=== PATIENT | female | born 1965 | race Caucasian/White ===

== ENCOUNTER → 2017-02-03 | Outpatient (CLI) | payer BC ==
[2017-02-03 12:02] LABS: Basophils # (A) 0.1 k/uL (0-0.2); Basophils % (A) 1 %; CH 31.3; CHCM 35.7; Eosinophils # (A) 0.1 k/uL (0-0.7); Eosinophils % (A) 2 %; HCT 40.6 % (34.0-46.0); HDW 2.84; HGB 14.3 gm/dL (11.4-16.0); Luc # (Auto) 0.11; Luc % (Auto) 2; Lymphocytes % (A) 31 %; MCH 31.2 pg (25.0-35.0); MCHC 35.3 g/dL (31.0-37.0); MCV 88.3 fL (80.0-100.0); Mean Platelet Volume 7.3; Monocytes # (A) 0.3 k/uL (0-1.0); Monocytes % (A) 5 %; Neutrophils % (A) 60 %; RDW 13.1 % (11.5-15.5); WBC 6.6 k/uL (3.8-10.6); WBC (Perox) 7.03
[2017-02-03 12:12] LABS: ALT 42 U/L (9-52); AST 23 U/L (14-36); Alkaline Phosphatase 51 U/L (38-126); Anion Gap 9 mmol/L; Blood Urea Nitrogen 14 mg/dL (7-17); Calcium 9.6 mg/dL (8.4-10.2); Carbon Dioxide 28 mmol/L (22-30); Chloride 103 mmol/L (98-107); Cholesterol 176 mg/dL (<200); Creatine Kinase 104 U/L (30-135); Glucose 101 mg/dL (74-99); HDL Cholesterol 67 mg/dL (40-60); Non-African American GFR(MDRD) >60 (>60 ml/min/1.73 sqM); Potassium 4.3 mmol/L (3.5-5.1); Sodium 140 mmol/L (137-145); Total Bilirubin 0.4 mg/dL (0.2-1.3); Total Protein 7.1 g/dL (6.3-8.2); Triglycerides 158 mg/dL (<150); Uric Acid 5.5 mg/dL (3.7-7.4)
[2017-02-03 13:31] LABS: Hemoglobin A1C 5.5 % (4.2-6.1)
[2017-02-03 18:47] LABS: Appearance,Urine Turbid (Clear); Bilirubin,Urine Negative (Negative); Glucose,Urine (UA) Negative (Negative); Ketones,Urine Negative (Negative); Leukocyte Esterase,Urine Trace (Negative); Mucus,Urine Few /hpf; Nitrite,Urine Negative (Negative); Particle Count 8343; Protein,Urine Trace (Negative); RBC,Urine 1 /hpf (0-5); Specific Gravity,Urine 1.022 (1.001-1.035); Squamous Epithelial Cell,Urine 18 /hpf (0-4); UA Billing (MACRO vs. MICRO) MICRO; Urobilinogen,Urine <2.0 mg/dL (<2.0); WBC,Urine 1 /hpf (0-5)
== END | disposition home or self-care (01) ==
LOC: LABWHC1 11:25
PROVIDERS: ATTEND Internal Medicine
DX: Z00.00 Encounter for general adult medical examination without abnormal findings (principal); E78.00 Pure hypercholesterolemia, unspecified; I10 Essential (primary) hypertension; G25.81 Restless legs syndrome; F32.89 Other specified depressive episodes
CPT/HCPCS: 36415; 80053; 80061; 81001; 82306; 82550; 83036; 84439; 84443; 84550; 85025

== ENCOUNTER → 2017-02-21 | Outpatient (CLI) | payer BC ==
--- NOTE | 2017-02-21 15:43 | BD ---
EXAMINATION TYPE: MG DEXA axial skeleton. DATE OF EXAM: 02/21/2017 COMPARISON: NONE CLINICAL HISTORY: Postmenopausal female Height: 5FT 1 1/2 IN Weight: 167 FRAX RISK QUESTIONS: Alcohol (3 or more units per day): NO Family History (Parent hip fracture): NO Glucocorticoids (More than 3mos): NO (Ex: prednisone, prednisolone, methylprednisolone, dexamethasone, and hydrocortisone). History of Fracture in Adulthood: NO Secondary Osteoporosis: 1. Type 1 Diabetes: NO 2. Hyperthyroidism: NO 3. Menopause before 45: YES 4. Malnutrition: NO 5. Chronic liver disease: NO Rheumatoid Arthritis: NO Current Tobacco Use: NO RISK FACTORS HISTORY OF: Surgery to Spine/Hip(right/left)/Wrist (right/left): LUMBAR FUSION When: 2011 Family History of Osteoporosis: YES Active: YES Postmenopausal woman: TOTAL HYST AGE 30 Take estrogen and/or progesterone medications: TOOK FROM 30 -43 How long: NONE NOW MEDICATIONS: Additional Medications: CITALIPRAM, BENICAR, CRESTOR, AMBIEN Additional History: EXAM MEASUREMENTS: Bone mineral density about the R hip (g/cm2): 1.046 Bone mineral density about the L hip (g/cm2): 1.114 . T Score values are as follows: -----R Neck: 0.1 -----L Neck: 0.5 -----R Total: 0.4 -----L Total: 0.7 Bone mineral density has: Decreased -1.5% since study of: 2014 IMPRESSION: No evidence for osteoporosis or osteopenia at this time. NOTE: T-SCORE=SD OF THE YOUNG ADULT MEAN.
--- NOTE | 2017-02-23 08:09 | MM ---
Reason for exam: screening (asymptomatic). Last mammogram was performed 1 year and 1 month ago. History: Patient is postmenopausal. Benign excisional biopsy of the left breast, April 30, 1999. Taking estrogen for 13 years beginning at age 30. Physical Findings: A clinical breast exam by your physician is recommended on an annual basis and results should be correlated with mammographic findings. MG Screening Mammo w CAD Bilateral CC and MLO view(s) were taken. Prior study comparison: January 22, 2016, bilateral MG screening mammo w CAD. September 04, 2014, bilateral MG screening mammo w CAD. April 15, 2013, bilateral digital screening mammo w/CAD. There are scattered fibroglandular densities. No significant changes when compared with prior studies. ASSESSMENT: Negative, BI-RAD 1 RECOMMENDATION: Routine screening mammogram of both breasts in 1 year.
== END | disposition home or self-care (01) ==
LOC: RADMAMWWP 14:35
PROVIDERS: ATTEND Internal Medicine
DX: Z12.31 Encounter for screening mammogram for malignant neoplasm of breast (principal); M81.0 Age-related osteoporosis without current pathological fracture
CPT/HCPCS: 77080; G0202

== ENCOUNTER → 2017-02-21 | Outpatient (CLI) | payer BC ==
--- NOTE | 2017-02-21 20:46 | CONS ---
DATE OF SERVICE: 02/21/2017 REASON FOR CONSULTATION: Insomnia. PRIMARY CARE PHYSICIAN: Dr. Jacobo This is a 52-year-old female patient who is experiencing on and off symptoms of insomnia. This patient has a history of chronic depression and anxiety. She has had some hard times recently, as the patient lost both of her parents in 2013 and 2014, and this has affected her depression, making her condition worse. Based on that, she had seen her primary care physician, who increased her citalopram up to 30 mg p.o. daily. For now, the patient is having some on and off difficulties in sleep initiation. It takes her somewhere between half an hour and up to 3 hours to fall asleep. She goes to bed around 11:00, and depending on what time she falls asleep, she wakes up somewhere between 9:30 a.m. and 11 a.m. She seems to be averaging less than 5 hours to sleep, according to her. No witnessed apneas. She has light, soft snoring. No grinding of the teeth. Occasional restlessness in the lower extremities. She was given Ambien by her primary care physician, initially at 5 mg, later on up to 10 mg, which was helping her; however, it was making her more drowsy during the day. Note that after initiating sleep, she does not wake up, and the difficulty with this patient is to initiate sleep. She gets anxious and she has racing thoughts, which prevent her from going to sleep. No nocturnal pain. No nocturnal shortness of breath. No nocturnal heartburn. No nightmares. No dreams. No sleepwalking of sleeptalking. No nocturnal palpitations. No panic attacks. She denies having any recent weight gain. She drinks tea in the morning and one glass of diet Coke in the afternoon. She has dinner between 5 and 7 p.m. No exercises or hot showers late at nighttime. No head trauma. No substance abuse. No history of alcoholism. No alcohol ingestion late at nighttime. Cumming Score is 2. Her quality of life is being affected. 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 Weight has been stable for now. No history of childhood insomnia. PAST MEDICAL HISTORY: 1. Depression. 2. Hypertension. 3. Hyperlipidemia. 4. Chronic insomnia. Surgical history includes: 1. x2. 2. Cholecystectomy. 3. Two back surgeries. 4. Breast biopsy. DRUG ALLERGIES: DILAUDID. Outpatient medication list includes: 1. Benicar 40/25 one tablet per day. 2. Citalopram 30 mg p.o. daily. 3. Crestor 5 mg p.o. daily. 4. Ambien 10 mg as needed. 5. Multivitamin 1 tablet a day. Family history is negative for insomnia or sleep breathing disorder. REVIEW OF SYSTEMS: Twelve-point review of systems was done. Positive findings were all mentioned above in the history of present illness. Her Cumming Score is 2. CURRENT VITAL SIGNS: BP is 128/71, pulse 98, respiration 14, temperature 98.5, saturation 96% on room air. Weight is 169. Height is 62-1/2 inches. Cumming Score is 2. BMI is 30.4. Neck size is 15 inches. GENERAL APPEARANCE: Calm, comfortable. HEENT: Short neck. Crowding of posterior pharynx. Micrognathia. No goiter or neck masses. LUNGS: Clear to auscultation. Heart sounds are regular rate and rhythm. Normal S1, S2. No S3, S4. No murmurs. ABDOMEN: Soft and non-tender. No organomegaly. EXTREMITIES: No edema. No cyanosis or clubbing. IMPRESSION: 1. Chronic insomnia. The patient has sleep initiation insomnia. She is able to maintain sleep without any major difficulties. Possible that increased anxiety is affecting her sleep initiation, and she has a component of poor sleeping habits and hygiene measures which further contributes to this problem. Rule out underlying comorbid insomnia related to anxiety/depression. 2. Hypertension. 3. Chronic back pain. 4. Hyperlipidemia. 5. Generalized anxiety disorder. PLAN: I really doubt any underlying pathology other than comorbid insomnia related to anxiety/depression. The patient's main symptom of insomnia is sleep onset insomnia. First and foremost, we need to improve her sleep hygiene. She needs to get up at a fixed time at all times. I would suggest her getting up somewhere between 8 and 8:30 a.m. in the morning. She should follow this pattern no matter how many hours she sleeps. We discussed relaxation techniques. We discussed about making her bedroom environment more comfortable, keeping the temperature low, avoiding late alcohol drinking, caffeine drinking or even heavy dinners or late exercises. No active issues of pain or discomfort at nighttime. She may benefit from 0.5 mg of Xanax to improve her anxiety, and this by itself should promote sleep. I do not think she will need long-acting as long as the patient is able to maintain sleep after falling into sleep. I gave her 60 tablets of Xanax 0.5 mg on a trial basis to be taken on an as- needed basis, especially if she is unable to initiate sleep. The Ambien can be discontinued. Will continue to follow. The patient will call me back if these above-mentioned measures fail in controlling her insomnia. MTDD
== END ==
LOC: SLEEP 13:00
PROVIDERS: ATTEND Internal Medicine Critical Care Medicine
DX: G47.00 Insomnia, unspecified (principal); I10 Essential (primary) hypertension; E78.5 Hyperlipidemia, unspecified; F41.1 Generalized anxiety disorder; Z79.899 Other long term (current) drug therapy; Z88.5 Allergy status to narcotic agent
CPT/HCPCS: 99211

== ENCOUNTER → 2018-06-27 | Outpatient (CLI) | payer BC ==
[2018-06-27 09:57] LABS: Basophils % (A) 1 %; Eosinophils # (A) 0.1 k/uL (0-0.7); Eosinophils % (A) 2 %; HCT 38.1 % (34.0-46.0); HGB 12.9 gm/dL (11.4-16.0); Lymphocytes # (A) 1.5 k/uL (1.0-4.8); Lymphocytes % (A) 27 %; MCH 30.2 pg (25.0-35.0); MCHC 33.9 g/dL (31.0-37.0); MCV 89.2 fL (80.0-100.0); Mean Platelet Volume 7.1; Monocytes # (A) 0.3 k/uL (0-1.0); Monocytes % (A) 5 %; Neutrophils # (A) 3.6 k/uL (1.3-7.7); Neutrophils % (A) 65 %; Platelet Count 216 k/uL (150-450); RBC 4.27 m/uL (3.80-5.40); RDW 12.8 % (11.5-15.5); WBC 5.6 k/uL (3.8-10.6)
[2018-06-27 16:17] LABS: Albumin 4.6 g/dL (3.80-4.90); Albumin/Globulin Ratio 2.88 (1.20-2.10); Anion Gap 6.3 mmol/L (4.00-12.00); Calcium 9.6 mg/dL (8.7-10.3); Carbon Dioxide 28.7 mmol/L (21.6-31.8); Globulin 1.6 g/dL (2.1-3.7); LDL Cholesterol,Calculated 68.2 mg/dL (0.0-131.0); Potassium 4.1 mmol/L (3.5-5.5); Total Bilirubin 0.3 mg/dL (0.2-1.2); Total Protein 6.2 g/dL (6.2-8.2); Uric Acid 4.7 mg/dL (2.9-7.7); VLDL Calculation 11.8 mg/dL (5.00-40.00)
[2018-06-27 16:18] LABS: Protein, Total 6.5 g/dL (6.2-8.2); Rheumatoid Factor 19 IU/mL (0-15)
[2018-06-27 16:24] LABS: T4, Free (Free Thyroxine) 1.1 ng/dL (0.80-1.80)
[2018-06-27 16:34] LABS: Folate, Serum >24.0 ng/mL
[2018-06-27 18:44] LABS: Hemoglobin A1C 5.4 % (4.0-6.0)
[2018-06-28 11:36] LABS: Albumin 4.09 g/dL (3.80-4.90); Gamma Globulin 0.73 g/dL (0.70-1.50)
[2018-06-28 14:27] LABS: ANA Pattern See Footnote
[2018-06-29 09:35] LABS: Lyme IgG/IgM 0.1 Index
== END | disposition home or self-care (01) ==
LOC: LABWHC1 08:58
PROVIDERS: ATTEND Internal Medicine
DX: H47.012 Ischemic optic neuropathy, left eye (principal)
CPT/HCPCS: 36415; 80053; 80061; 82550; 82595; 82607; 82746; 83036; 83883; 84165; 84439; 84443; 84550; 85025; 86038; 86039; 86200; 86431; 86618

== ENCOUNTER → 2018-07-17 | Outpatient (CLI) | payer BC ==
--- NOTE | 2018-07-17 10:11 | US ---
EXAMINATION TYPE: US carotid duplex BILAT DATE OF EXAM: 07/17/2018 COMPARISON: NONE CLINICAL HISTORY: H47.012 iSCHEMIC OPTIC NEUROPATHY. Pt states recent vision changes EXAM MEASUREMENTS: RIGHT: Peak Systolic Velocity (PSV) cm/sec ----- Right CCA: 85.3 ----- Right ICA: 86.4 ----- Right ECA: 69.4 ICA/CCA ratio: 1.0 RIGHT: End Diastole cm/sec ----- Right CCA: 29.2 ----- Right ICA: 35.8 ----- Right ECA: 20.6 LEFT: Peak Systolic Velocity (PSV) cm/sec ----- Left CCA: 76.4 ----- Left ICA: 101.8 ----- Left ECA: 66.0 ICA/CCA ratio: 1.3 LEFT: End Diastole cm/sec ----- Left CCA: 25.8 ----- Left ICA: 46.8 ----- Left ECA: 15.4 VERTEBRALS (direction of flow): Right Vertebral: Antegrade Left Vertebral: Antegrade Rhythm: Normal No significant stenosis seen Some mild intimal thickening may be present. No significant stenosis is evident. IMPRESSION: 1. No significant flow-limiting stenosis. Criteria for Assigning % of Stenosis / Diameter reduction (Estimation based on the indirect measurements of the internal carotid artery velocities (ICA PSV). 1. Normal (no stenosis)=ICA PSV < 125 cm/s: ratio < 2.0: ICA EDV<40 cm/s. 2. Less than 50% stenosis=ICA PSV < 125 cm/s: ratio < 2.0: ICA EDV<40 cm/s. 3. 50 to 69% stenosis=ICA PSV of 125 to 230 cm/s: ration 2.0 ? 4.0: ICA EDV 40-100 cm/s. 4. Greater than 70% stenosis to near occlusion= ICA PSV > 230 cm/s: ratio > 4.0: ICA EDV > 100 cm/s. 5. Near occlusion= ICA PSV velocities may be low or undetectable: variable ratio and ICA EDV. 6. Total occlusion=unable to detect flow.
--- NOTE | 2018-07-18 09:25 | ECHOF ---
Referral Reason:I35.1 nonrheumatic aortic regurgitation MEASUREMENTS -------- HEIGHT: 157.5 cm WEIGHT: 75.7 kg BP: 160/67 RVIDd: 2.8 cm (< 3.3) IVSd: 1.2 cm (0.6 - 1.1) LVIDd: 3.9 cm (3.9 - 5.3) LVPWd: 1.0 cm (0.6 - 1.1) IVSs: 1.5 cm LVIDs: 2.8 cm LVPWs: 1.7 cm LA Diam: 3.3 cm (2.7 - 3.8) LAESV Index (A-L): 26.02 ml/m Ao Diam: 3.9 cm (2.0 - 3.7) AV Cusp: 2.2 cm (1.5 - 2.6) MV EXCURSION: 17.918 mm (> 18.000) MV EF SLOPE: 98 mm/s (70 - 150) EPSS: 0.5 cm MV E Soy: 0.88 m/s MV DecT: 248 ms MV A Soy: 0.83 m/s MV E/A Ratio: 1.07 AV maxP.37 mmHg AV meanP.95 mmHg FINDINGS -------- Sinus rhythm. This was a technically adequate study. The left ventricular size is normal. There is borderline concentric left ventricular hypertrophy. Overall left ventricular systolic function is normal with, an EF between 60 - 65 %. The right ventricle is normal in size. Normal LA size by volume 22+/-6 ml/m2. The right atrium is normal in size. The aortic valve is bicuspid. Peak/mean gradient across the Aortic Valve is 12.37mmHg / 5.95mmHg. There is trace mitral regurgitation. The tricuspid valve appears structurally normal. There is no pulmonic regurgitation present. The aortic root is dilated measuring 3.9cm. Ascending AO 41 mm Normal inferior vena cava with normal inspiratory collapse consistent with estimated right atrial pre ssure of 5 mmHg. There is no pericardial effusion. CONCLUSIONS -------- 1. Sinus rhythm. 2. This was a technically adequate study. 3. The left ventricular size is normal. 4. There is borderline concentric left ventricular hypertrophy. 5. Overall left ventricular systolic function is normal with, an EF between 60 - 65 %. 6. The right ventricle is normal in size. 7. Normal LA size by volume 22+/-6 ml/m2. 8. The right atrium is normal in size. 9. The aortic valve is bicuspid. 10. Peak/mean gradient across the Aortic Valve is 12.37mmHg / 5.95mmHg. 11. There is trace mitral regurgitation. 12. The tricuspid valve appears structurally normal. 13. There is no pulmonic regurgitation present. 14. The aortic root is dilated measuring 3.9cm. 15. Ascending AO 41 mm 16. Normal inferior vena cava with normal inspiratory collapse consistent with estimated right atrial pressure of 5 mmHg. 17. There is no pericardial effusion. FALSEWORK BUILDER: Genny Celeste RDCS
== END | disposition home or self-care (01) ==
LOC: RADECHMAIN 08:37
PROVIDERS: ATTEND Internal Medicine
DX: H47.012 Ischemic optic neuropathy, left eye (principal); Q23.1 Congenital insufficiency of aortic valve; I51.7 Cardiomegaly
CPT/HCPCS: 93306; 93880

== ENCOUNTER → 2018-08-01 | Outpatient (CLI) | payer BC ==
[2018-08-01 07:39] LABS: Blood Urea Nitrogen 30 mg/dL (7-17)
--- NOTE | 2018-08-01 09:07 | CT ---
EXAMINATION TYPE: CT angio chest DATE OF EXAM: 08/01/2018 COMPARISON: None HISTORY: 53-year-old female Thoracic aortic aneurysm, without rupture TECHNIQUE: Contiguous axial scanning of the chest performed without and with IV Contrast, patient inj ected with 100 ml mL of Isovue 300. Coronal and sagittal reconstructions performed. 3-D reconstructio ns generated on a dedicated independent workstation. CT DLP: 727 mGycm Automated exposure control for dose reduction was used. FINDINGS: Heart normal size without pericardial effusion. The aortic root measures 3.1 cm. Aneurysm of the ascending aorta at 4.2 cm. Conventional arch vessel branching anatomy. Upper descending thoracic aorta measures 2.3 cm. The remainder of the descending thoracic aorta is normal caliber. Initial noncontrast images show no evidence for acute intramural hematoma. No evidence for aortic dissection. No thoracic lymphadenopathy by CT size criteria. Evaluation of the lungs shows no consolidation or pleural effusion. Visualized upper abdomen show scattered subcentimeter hypodense lesions in the liver too small for ac curate CT characterization, likely cysts. Cholecystectomy clips. Additional 1.7 cm cyst posterior rig ht kidney is partially visualized. Bones: No osseous destructive process. IMPRESSION: ASCENDING AORTIC ANEURYSM (4.2 CM).
== END ==
LOC: RADCTMAIN 06:42
PROVIDERS: ATTEND Internal Medicine Interventional Cardiology
DX: I71.2 Thoracic aortic aneurysm, without rupture (principal)
CPT/HCPCS: 82565; 84520; 71275; 36415; Q9967

== ENCOUNTER → 2019-11-26 | Outpatient (CLI) | payer BC ==
[2019-11-26 13:10] LABS: Basophils # (A) 0.1 k/uL (0-0.2); Basophils % (A) 1 %; Eosinophils # (A) 0.1 k/uL (0-0.7); Eosinophils % (A) 2 %; HCT 40.8 % (34.0-46.0); HGB 13.5 gm/dL (11.4-16.0); Lymphocytes # (A) 2.4 k/uL (1.0-4.8); Lymphocytes % (A) 31 %; MCH 29.7 pg (25.0-35.0); MCHC 33.2 g/dL (31.0-37.0); MCV 89.4 fL (80.0-100.0); Mean Platelet Volume 7.2; Monocytes # (A) 0.4 k/uL (0-1.0); Monocytes % (A) 5 %; Neutrophils # (A) 4.6 k/uL (1.3-7.7); Neutrophils % (A) 60 %; Platelet Count 207 k/uL (150-450); RBC 4.57 m/uL (3.80-5.40); RDW 12.9 % (11.5-15.5); WBC 7.6 k/uL (3.8-10.6)
[2019-11-26 18:59] LABS: African American GFR (CKD) 112.3 (60.0-200.0); Albumin 4.4 g/dL (3.80-4.90); Anion Gap 10.5 mmol/L (4.00-12.00); BUN/Creat Ratio 27.14 Ratio (12.00-20.00); Calcium 9.8 mg/dL (8.7-10.3); Carbon Dioxide 29.5 mmol/L (21.6-31.8); Chol/HDL Ratio 3.05; Globulin 2.2 g/dL (1.6-3.3); LDL Cholesterol,Calculated 105.6 mg/dL (0.0-131.0); Non-African American GFR(CKD) 96.9 (60.0-200.0); Potassium 4.2 mmol/L (3.5-5.5); Total Bilirubin 0.4 mg/dL (0.3-1.2); Total Protein 6.6 g/dL (6.2-8.2); VLDL Calculation 13.4 mg/dL (5.00-40.00)
[2019-11-26 19:05] LABS: T4, Free (Free Thyroxine) 1.1 ng/dL (0.80-1.80)
[2019-11-26 22:15] LABS: Hemoglobin A1C 5.6 % (4.0-6.0)
== END | disposition home or self-care (01) ==
LOC: LABWHC1 12:28
PROVIDERS: ATTEND Internal Medicine
DX: I10 Essential (primary) hypertension (principal); E78.2 Mixed hyperlipidemia; F32.89 Other specified depressive episodes
CPT/HCPCS: 36415; 80053; 80061; 83036; 84439; 84443; 85025

== ENCOUNTER → 2020-02-05 | Outpatient (CLI) | payer BC ==
--- NOTE | 2020-02-05 16:35 | CT ---
EXAMINATION TYPE: CT angio chest DATE OF EXAM: 02/05/2020 12:51 PM COMPARISON: CTA chest 08/01/2018 HISTORY: Follow up aneurysm CT DLP: 279.6 mGycm Automated exposure control for dose reduction was used. CONTRAST: CTA scan of the thorax is performed with IV Contrast, patient injected with 100 mL of Isovue 370, tho racic aortic aneurysm protocol. 3D reconstructed images are created on an independent workstation an d reviewed.. FINDINGS: LUNGS: The lungs are grossly clear, there is no concerning parenchymal mass or nodule identified. T here is no pleural effusion or pneumothorax seen. The tracheobronchial tree is patent. MEDIASTINUM: There is satisfactory enhancement of the thoracic aorta, with redemonstration of 4.2 cm ascending thoracic aortic aneurysm. No evidence of aortic dissection. There is satisfactory enhanceme nt of the pulmonary arteries with no evidence of central or segmental pulmonary embolus. There are no greater than 1 cm hilar or mediastinal lymph nodes. Cardiac size normal. No pericardial effusion is seen. OTHER: Redemonstrated too small to characterize hepatic hypodense lesions, some of which appear cyst like. Degenerative changes of the thoracic spine. IMPRESSION: UNCHANGED 4.2 CM ASCENDING THORACIC AORTIC ANEURYSM.
== END | disposition home or self-care (01) ==
LOC: RADCTMAIN 11:59
PROVIDERS: ATTEND Internal Medicine Interventional Cardiology
DX: I71.2 Thoracic aortic aneurysm, without rupture (principal); Z88.8 Allergy status to other drugs, medicaments and biological substances
CPT/HCPCS: 71275; Q9967

== ENCOUNTER → 2020-02-18 | Outpatient (CLI) | payer BC ==
--- NOTE | 2020-02-19 16:11 | BD ---
EXAMINATION TYPE: Axial Bone Density DATE OF EXAM: 02/18/2020 COMPARISON: 02/21/2017 CLINICAL HISTORY: 52-year-old female postmenopausal screening Height: 62 IN Weight: 176 LBS FRAX RISK QUESTIONS: Secondary Osteoporosis: 3. Menopause before 45: TOTAL HYST AGE 31 RISK FACTORS HISTORY OF: Spine Fracture: L-SPINE SURGERY FUSION When: 2011 Active: YES Diet low in dairy products/other sources of calcium: YES Postmenopausal woman: TOTAL HYST AGE 31 Take estrogen and/or progesterone medications: NOT NOW How long: AGE 31 - 46 MEDICATIONS: Additional Medications: MULTI VIT, BLOOD PRESSURE, DEPRESSION, CHOLESTEROL MEDS EXAM MEASUREMENTS: Bone mineral densitometry was performed using the [employer]. PT HAD L-SPINE FUSION 2011 Bone mineral density about the R hip (g/cm2): 1.030 Bone mineral density about the L hip (g/cm2): 1.098 T Score values are as follows: -----R Neck: -0.1 -----L Neck: 0.4 -----R Total: 0.4 -----L Total: 0.7 Bone mineral density has: Decreased -0.2% since study of: 02/21/2017 Bone mineral density about the L Wrist (g/cm2): 0.530 T Score values are as follows: -----Dist. R+U: -2.1 -----Prox. R+U: -1.6 -----Radius total: -2.4 Bone mineral density BASELINE IMPRESSION: Osteopenia (T Score between -2.5 and -1). There is slightly increased risk of fracture and the patient may be considered for treatment. Re-Screen 2-5 years. NOTE: T-SCORE=SD OF THE YOUNG ADULT MEAN.
--- NOTE | 2020-02-20 11:37 | MM ---
Reason for exam: screening (asymptomatic). Last mammogram was performed 1 year and 9 months ago. History: Patient is postmenopausal. Benign excisional biopsy of the left breast, April 30, 1999. Taking estrogen for 13 years beginning at age 30. Physical Findings: A clinical breast exam by your physician is recommended on an annual basis and results should be correlated with mammographic findings. MG 3D Screening Mammo W/Cad Bilateral CC and MLO view(s) were taken. Prior study comparison: May 21, 2018, bilateral MG 3d screening mammo w/cad. February 21, 2017, bilateral MG screening mammo w CAD. The breast tissue is heterogeneously dense. This may lower the sensitivity of mammography. No significant changes when compared with prior studies. ASSESSMENT: Negative, BI-RAD 1 RECOMMENDATION: Routine screening mammogram of both breasts in 1 year.
== END | disposition home or self-care (01) ==
LOC: RADMAMWWP 14:36
PROVIDERS: ATTEND Obstetrics & Gynecology
DX: Z12.31 Encounter for screening mammogram for malignant neoplasm of breast (principal); M85.80 Other specified disorders of bone density and structure, unspecified site; N95.1 Menopausal and female climacteric states
CPT/HCPCS: 77063; 77067; 77080

== ENCOUNTER 2020-04-07 08:35 | Day surgery (SDC) | payer BC ==
[2020-04-06 09:43] VITALS: BMI 32.0
[~2020-04-07 08:35] MED LIST: LACTATED RINGERS 1,000 ML IV SCH; LIDOCAINE 1% (10MG/ML) FOR IV START INTRADERMA PRN
[2020-04-07 08:50] VITALS: RESP 16; TEMP 96.4
[2020-04-07] MEDS ORDERED: ONDANSETRON 4 MG/2 ML VIAL ONE (08:57)
[2020-04-07] MEDS ORDERED: ONDANSETRON 4 MG/2 ML VIAL IVP ONE (08:59)
[2020-04-07] MEDS ORDERED: PROPOFOL 10 MG/ML 20 ML VIAL IV ONE (09:18)
[2020-04-07] MEDS ORDERED: fentaNYL (PF) 50 MCG/ML 2 ML AMP ONE (09:18)
[2020-04-07] MEDS ORDERED: MIDAZOLAM 2 MG/2 ML VIAL ONE (09:18)
--- NOTE | 2020-04-07 09:42 | P.GSHP ---
History of Present Illness H&P Date: 04/07/20 Chief Complaint: Rectal bleeding Patient here today for colonoscopy. Last colonoscopy 3 years ago. History of questionable polyps. Recently has had increased rectal bleeding. No family history of colon cancer. Past Medical History Past Medical History: Hyperlipidemia, Hypertension Additional Past Medical History / Comment(s): bicuspid aorta, aortic aneurysm- dr. goldsmith, recent blood in stool History of Any Multi-Drug Resistant Organisms: None Reported Past Surgical History: Back Surgery, Section, Cholecystectomy, Hysterectomy Additional Past Surgical History / Comment(s): colonoscopy, spinal fusion x2 Past Anesthesia/Blood Transfusion Reactions: No Reported Reaction Smoking Status: Never smoker Medications and Allergies Home Medications Medication Instructions Recorded Confirmed Type Citalopram Hydrobromide [CeleXA] 30 mg PO DAILY 04/06/20 04/07/20 History Olmesartan [Benicar] 40 mg PO DAILY 04/06/20 04/07/20 History Rosuvastatin Calcium [Crestor] 5 mg PO DAILY 04/06/20 04/07/20 History Zolpidem [Ambien] 5 mg PO HS PRN 04/06/20 04/07/20 History hydroCHLOROthiazide [Hydrodiuril] 25 mg PO DAILY 04/06/20 04/07/20 History traZODone HCL 50 mg PO HS PRN 04/06/20 04/07/20 History Allergies Allergy/AdvReac Type Severity Reaction Status Date / Time adhesive tape Allergy skin welts Verified 04/07/20 08:50 hydromorphone [From Dilaudid] Allergy severe Verified 04/07/20 08:50 headache Surgical - Exam Vital Signs Temp Pulse Resp BP Pulse Ox 96.4 F L 87 16 151/79 95 04/07/20 08:47 04/07/20 08:47 04/07/20 08:47 04/07/20 08:47 04/07/20 08:47 Physical exam: General: Well-developed, well-nourished HEENT: Normocephalic, sclerae nonicteric Abdomen: Nontender, nondistended Extremities: No edema Neuro: Alert and oriented Assessment and Plan (1) Rectal bleeding Narrative/Plan: Will proceed with colonoscopy at this time Current Visit: Yes Status: Acute Code(s): K62.5 - HEMORRHAGE OF ANUS AND RECTUM SNOMED Code(s): 95445144
--- NOTE | 2020-04-07 09:44 | P.PCN ---
Date of Procedure: 04/07/20 Procedure(s) Performed: PREOPERATIVE DIAGNOSIS: Rectal bleeding POSTOPERATIVE DIAGNOSIS: Ascending colon polyp, descending colon polyp, sigmoid colon polyp PROCEDURE: Colonoscopy with snare polypectomy ANESTHESIA: MAC SURGEON: James Roberson M.D. SPECIMENS: Polyps ENDOSCOPIC PROCEDURE: The patient was placed on the endoscopy table in the left decubitus position. The Olympus colonoscope was inserted into the anus and passed under direct visualization to the base of the cecum. The appendiceal orifice was visualized. From that point the scope was slowly withdrawn inspecting all surfaces carefully. There were no neoplastic inflammatory or polypoid lesions throughout the cecum. In the ascending colon a small polyp was seen and removed using the snare with cautery technique. The remainder of the ascending and transverse colon appeared normal. In the descending colon at 60 cm another polyp was seen and removed using a similar technique. In the midsigmoid colon a smaller polyp was seen and also removed using the snare with cautery technique. The remainder of the sigmoid and rectum was normal. There was no visible diverticulosis. At the anus the patient was noted to have internal and external hemorrhoids without any evidence of recent or active bleeding. The patient was taken to the recovery room in stable condition per anesthesia guidelines. RECOMMENDATIONS: Await biopsy results. Increase fiber.
[2020-04-07 10:01] VITALS: BP 101/63; PULSE 73
== END 2020-04-07 10:15 ==
LOC: ORWHC2ENDO 08:35
PROVIDERS: ATTEND Surgery
DX: D12.2 Benign neoplasm of ascending colon (principal); K63.5 Polyp of colon; K64.4 Residual hemorrhoidal skin tags; K64.8 Other hemorrhoids; I10 Essential (primary) hypertension; E78.5 Hyperlipidemia, unspecified; Z79.899 Other long term (current) drug therapy; Z91.048 Other nonmedicinal substance allergy status; Z88.5 Allergy status to narcotic agent; Z98.1 Arthrodesis status; Z90.710 Acquired absence of both cervix and uterus; Z90.49 Acquired absence of other specified parts of digestive tract; Z98.891 History of uterine scar from previous surgery; Z98.890 Other specified postprocedural states
CPT/HCPCS: 88305; 45385; J2250; J2405; J3010; J2704

== ENCOUNTER 2020-11-06 10:52 | Emergency (ER) | payer BC ==
[2020-11-06] MEDS ORDERED: SODIUM CHLORIDE 0.9% 1,000 ML IV STA (10:59)
[2020-11-06 11:01] VITALS: RESP 18; TEMP 98
--- NOTE | 2020-11-06 11:25 | ED ---
Dizziness HPI - General Chief Complaint: Syncope Stated Complaint: Near Syncope Time Seen by Provider: 11/06/20 10:54 Source: patient, RN notes reviewed Mode of arrival: EMS Limitations: no limitations - History of Present Illness Initial Comments: Patient is a 55-year-old female presents to emergency department status post Covid vaccination shot. She notes that shortly after vaccination she felt lightheaded with fuzzy vision and felt like she was in a faint. She noted when she transferred from table to stretch her legs felt weak. While laying in bed she noted that her legs were feeling better. She did note that she had a glass Water and tea and two Bellvita breakfast wafers. She denied any previous presyncopal episodes except for 1 time post surgery when she was overheated and dehydrated. She stated that she was not in pain and is felt a little out of it still. She denied any chest pain shortness of breath headache nausea vomiting diarrhea constipation fever fatigue chills. - Related Data Home Medications Medication Instructions Recorded Confirmed Citalopram Hydrobromide [CeleXA] 30 mg PO DAILY 04/06/20 11/06/20 Rosuvastatin Calcium [Crestor] 5 mg PO HS 04/06/20 11/06/20 Zolpidem [Ambien] 5 mg PO HS PRN 04/06/20 11/06/20 Docusate [Colace] 100 mg PO DAILY 11/06/20 11/06/20 Multivitamins, Thera [Multivitamin 1 tab PO DAILY 11/06/20 11/06/20 (formulary)] Olmesartan/Hydrochlorothiazide 1 tab PO DAILY 11/06/20 11/06/20 [Benicar Hct 40-25 mg Tablet] Allergies Allergy/AdvReac Type Severity Reaction Status Date / Time apple Allergy Anaphylaxis Verified 11/06/20 11:39 pear Allergy Anaphylaxis Verified 11/06/20 11:39 adhesive tape AdvReac skin welts Verified 11/06/20 11:39 hydromorphone [From Dilaudid] AdvReac severe Verified 11/06/20 11:39 headache Review of Systems ROS Statement: Those systems with pertinent positive or pertinent negative responses have been documented in the HPI. ROS Other: All systems not noted in ROS Statement are negative. Past Medical History Past Medical History: Hyperlipidemia, Hypertension Additional Past Medical History / Comment(s): AAA History of Any Multi-Drug Resistant Organisms: None Reported Past Surgical History: Back Surgery, Section, Cholecystectomy, Heart Catheterization, Hysterectomy Additional Past Surgical History / Comment(s): colonoscopy Past Psychological History: Depression Smoking Status: Never smoker Past Alcohol Use History: Occasional Past Drug Use History: None Reported General Exam Limitations: no limitations General appearance: alert, in no apparent distress Head exam: Present: atraumatic, normocephalic, normal inspection Eye exam: Present: normal appearance, PERRL, EOMI. Absent: scleral icterus, conjunctival injection, periorbital swelling ENT exam: Present: normal exam, mucous membranes moist Neck exam: Present: normal inspection. Absent: tenderness, meningismus, lymphadenopathy Respiratory exam: Present: normal lung sounds bilaterally. Absent: respiratory distress, wheezes, rales, rhonchi, stridor Cardiovascular Exam: Present: regular rate, normal rhythm, normal heart sounds. Absent: systolic murmur, diastolic murmur, rubs, gallop, clicks GI/Abdominal exam: Present: soft, normal bowel sounds. Absent: distended, tenderness, guarding, rebound, rigid Extremities exam: Present: normal inspection, full ROM, normal capillary refill. Absent: tenderness, pedal edema, joint swelling, calf tenderness Neurological exam: Present: alert, oriented X3, CN II-XII intact Psychiatric exam: Present: normal affect, normal mood Skin exam: Present: warm, dry, intact, normal color. Absent: rash Course Vital Signs 11/06/20 10:56 Temperature 98 F Pulse Rate 76 Respiratory 18 Rate Blood Pressure 155/87 O2 Sat by Pulse 99 Oximetry EKG Findings - EKG Comments: EKG Findings:: Ventricular rate 66 bpm, MS interval 146 ms, QRS duration 92 ms, QT/QTc 434/454 ms, PRT axes 10/-1/10. Normal sinus rhythm, normal ECG. Medical Decision Making - Medical Decision Making 55-year-old female complaining of presyncopal, lightheadedness, dizziness after Covid shot. Labs, EKG, chest x-ray, 1 L normal saline ordered. Labs unremarkable. Chest x-ray: No acute process. Orthostatic vitals taken: All within normal limits. Case discussed with Dr. Hilton, patient discharge home with follow-up primary care. - Lab Data Result diagrams: 11/06/20 11:12 11/06/20 11:12 Lab Results 11/06/20 11/06/20 11/06/20 Range/Units 11:12 11:12 11:12 WBC 5.2 (3.8-10.6) k/uL RBC 4.55 (3.80-5.40) m/uL Hgb 14.1 (11.4-16.0) gm/dL Hct 39.4 (34.0-46.0) % MCV 86.5 (80.0-100.0) fL MCH 31.0 (25.0-35.0) pg MCHC 35.8 (31.0-37.0) g/dL RDW 12.7 (11.5-15.5) % Plt Count 210 (150-450) k/uL MPV 7.7 Neutrophils % 62 % Lymphocytes % 29 % Monocytes % 5 % Eosinophils % 1 % Basophils % 1 % Neutrophils # 3.2 (1.3-7.7) k/uL Lymphocytes # 1.5 (1.0-4.8) k/uL Monocytes # 0.3 (0-1.0) k/uL Eosinophils # 0.1 (0-0.7) k/uL Basophils # 0.0 (0-0.2) k/uL Sodium 136 L (137-145) mmol/L Potassium 4.1 (3.5-5.1) mmol/L Chloride 99 (98-107) mmol/L Carbon Dioxide 28 (22-30) mmol/L Anion Gap 9 mmol/L BUN 13 (7-17) mg/dL Creatinine 0.61 (0.52-1.04) mg/dL Est GFR (CKD-EPI)AfAm >90 (>60 ml/min/1.73 sqM) Est GFR (CKD-EPI)NonAf >90 (>60 ml/min/1.73 sqM) Glucose 126 H (74-99) mg/dL Calcium 9.7 (8.4-10.2) mg/dL Total Bilirubin 0.8 (0.2-1.3) mg/dL AST 46 H (14-36) U/L ALT 23 (4-34) U/L Alkaline Phosphatase 50 (38-126) U/L Troponin I <0.012 (0.000-0.034) ng/mL Total Protein 7.4 (6.3-8.2) g/dL Albumin 4.6 (3.5-5.0) g/dL Urine Color Urine Appearance (Clear) Urine pH (5.0-8.0) Ur Specific [place] (1.001-1.035) Urine Protein (Negative) Urine Glucose (UA) (Negative) Urine Ketones (Negative) Urine Blood (Negative) Urine Nitrite (Negative) Urine Bilirubin (Negative) Urine Urobilinogen (<2.0) mg/dL Ur Leukocyte Esterase (Negative) Urine RBC (0-5) /hpf Urine WBC (0-5) /hpf Urine Mucus (None) /hpf 11/06/20 Range/Units 11:12 WBC (3.8-10.6) k/uL RBC (3.80-5.40) m/uL Hgb (11.4-16.0) gm/dL Hct (34.0-46.0) % MCV (80.0-100.0) fL MCH (25.0-35.0) pg MCHC (31.0-37.0) g/dL RDW (11.5-15.5) % Plt Count (150-450) k/uL MPV Neutrophils % % Lymphocytes % % Monocytes % % Eosinophils % % Basophils % % Neutrophils # (1.3-7.7) k/uL Lymphocytes # (1.0-4.8) k/uL Monocytes # (0-1.0) k/uL Eosinophils # (0-0.7) k/uL Basophils # (0-0.2) k/uL Sodium (137-145) mmol/L Potassium (3.5-5.1) mmol/L Chloride (98-107) mmol/L Carbon Dioxide (22-30) mmol/L Anion Gap mmol/L BUN (7-17) mg/dL Creatinine (0.52-1.04) mg/dL Est GFR (CKD-EPI)AfAm (>60 ml/min/1.73 sqM) Est GFR (CKD-EPI)NonAf (>60 ml/min/1.73 sqM) Glucose (74-99) mg/dL Calcium (8.4-10.2) mg/dL Total Bilirubin (0.2-1.3) mg/dL AST (14-36) U/L ALT (4-34) U/L Alkaline Phosphatase (38-126) U/L Troponin I (0.000-0.034) ng/mL Total Protein (6.3-8.2) g/dL Albumin (3.5-5.0) g/dL Urine Color Yellow Urine Appearance Clear (Clear) Urine pH 7.0 (5.0-8.0) Ur Specific [place] 1.007 (1.001-1.035) Urine Protein Negative (Negative) Urine Glucose (UA) Negative (Negative) Urine Ketones Negative (Negative) Urine Blood Negative (Negative) Urine Nitrite Negative (Negative) Urine Bilirubin Negative (Negative) Urine Urobilinogen <2.0 (<2.0) mg/dL Ur Leukocyte Esterase Small H (Negative) Urine RBC 2 (0-5) /hpf Urine WBC 3 (0-5) /hpf Urine Mucus Rare H (None) /hpf - EKG Data -: EKG Interpreted by In EKG shows normal: sinus rhythm Rate: normal EKG Comments: Ventricular rate 66 bpm, MS interval 146 ms, QRS duration 92 ms, QT/QTc 434/454 ms, PRT axes 10/-1/10. Normal sinus rhythm, normal ECG. - Radiology Data Radiology results: report reviewed, image reviewed Chest x-ray: No acute cardiopulmonary process. Disposition Clinical Impression: Pre-syncope, Lightheadedness, Dehydration Disposition: HOME SELF-CARE Condition: Stable Instructions (If sedation given, give patient instructions): Dehydration (ED) Additional Instructions: Please return to the Emergency Department if symptoms worsen or any other concerns. Follow-up primary care in 3-5 days. Take it easy and rest today. Increase oral fluid intake and eat well. Is patient prescribed a controlled substance at d/c from ED?: No Referrals: Sherlyn Jacobo MD [Primary Care Provider] - 1-2 days Time of Disposition: 12:57
[2020-11-06 11:39] LABS: ALT 23 U/L (4-34); African American GFR (CKD) >90 (>60 ml/min/1.73 sqM); Albumin 4.6 g/dL (3.5-5.0); Anion Gap 9 mmol/L; Blood Urea Nitrogen 13 mg/dL (7-17); Calcium 9.7 mg/dL (8.4-10.2); Carbon Dioxide 28 mmol/L (22-30); Chloride 99 mmol/L (98-107); Glucose 126 mg/dL (74-99); Non-African American GFR(CKD) >90 (>60 ml/min/1.73 sqM); Sodium 136 mmol/L (137-145); Total Bilirubin 0.8 mg/dL (0.2-1.3); Total Protein 7.4 g/dL (6.3-8.2)
[2020-11-06 11:46] LABS: AST 46 U/L (14-36); Alkaline Phosphatase 50 U/L (38-126); Potassium 4.1 mmol/L (3.5-5.1)
--- NOTE | 2020-11-06 11:56 | XR ---
EXAMINATION TYPE: XR chest 2V DATE OF EXAM: 11/06/2020 COMPARISON: NONE TECHNIQUE: PA and lateral views submitted. HISTORY: Lightheadedness and dizziness with pain FINDINGS: The lungs are clear and there is no pneumothorax, pleural effusion, or focal pneumonia. Heart size normal. No overt failure arthropathy of the shoulders. 05/19/2015. Surgical clips in the abdomen. Hyp ertrophic changes of the spine. IMPRESSION: 1. No acute process.
[2020-11-06 11:58] LABS: Basophils % (A) 1 %; Eosinophils # (A) 0.1 k/uL (0-0.7); Eosinophils % (A) 1 %; HCT 39.4 % (34.0-46.0); HGB 14.1 gm/dL (11.4-16.0); Lymphocytes # (A) 1.5 k/uL (1.0-4.8); Lymphocytes % (A) 29 %; MCHC 35.8 g/dL (31.0-37.0); MCV 86.5 fL (80.0-100.0); Mean Platelet Volume 7.7; Monocytes # (A) 0.3 k/uL (0-1.0); Monocytes % (A) 5 %; Neutrophils # (A) 3.2 k/uL (1.3-7.7); Neutrophils % (A) 62 %; Platelet Count 210 k/uL (150-450); RBC 4.55 m/uL (3.80-5.40); RDW 12.7 % (11.5-15.5); WBC 5.2 k/uL (3.8-10.6)
[2020-11-06 12:02] LABS: Appearance,Urine Clear (Clear); Bilirubin,Urine Negative (Negative); Blood,Urine Negative (Negative); Color,Urine Yellow; Glucose,Urine (UA) Negative (Negative); Ketones,Urine Negative (Negative); Leukocyte Esterase,Urine Small (Negative); Mucus,Urine Rare /hpf; Nitrite,Urine Negative (Negative); Protein,Urine Negative (Negative); RBC,Urine 2 /hpf (0-5); Specific Gravity,Urine 1.007 (1.001-1.035); Urobilinogen,Urine <2.0 mg/dL (<2.0); WBC,Urine 3 /hpf (0-5)
[2020-11-06 13:22] VITALS: BP 128/77; PULSE 74
== END 2020-11-06 13:22 | disposition home or self-care (01) ==
LOC: EC 10:52
DX: R55 Syncope and collapse (principal); R42 Dizziness and giddiness; E86.0 Dehydration; E78.5 Hyperlipidemia, unspecified; I10 Essential (primary) hypertension
CPT/HCPCS: 36415; 71046; 80053; 81001; 84484; 85025; 93005; 99284

== ENCOUNTER → 2020-11-16 | Outpatient (CLI) | payer BC ==
--- NOTE | 2020-11-17 10:39 | CT ---
CT CHEST FOR PULMONARY EMBOLISM. EXAMINATION TYPE: CT angio chest DATE OF EXAM: 11/16/2020 INDICATION: f/u aneurysm CT DLP: 302.2 mGycm, Automated exposure control for dose reduction was used. CONTRAST: Patient injected with 100 mL of Isovue 370. COMPARISON: 02/05/2020 TECHNIQUE: CT of the chest is performed on a spiral scan at 2 mm thick sections. Study is performed with intravenous contrast timed for evaluation for pulmonary embolism. This will limit additional po rtions of the evaluation. 3-D MIP images reconstructed by the technologist are reviewed on the compu ter in the coronal and sagittal planes. FINDINGS: No persistent filling defects are evident to suggest an acute pulmonary embolism. No mediastinal or hilar adenopathy enlarged by CT criteria is evident. The ascending aorta diameter at the level of the main pulmonary artery is 3.8 cm. The main pulmonary artery diameter at the bifur cation is 2.1 cm. Aorta at the aortic root is 3.7 cm. Aorta at the main pulmonary artery is 3.8 cm. Transverse dimensi on aorta at the aortic arch is 2.2 cm. The aorta at the diaphragm is 1.9 cm. Lung windows are clear. Limited CT section through the upper abdomen are unremarkable. IMPRESSIONS: 1. No acute pulmonary embolism. 2. Fusiform prominence of the ascending thoracic aorta.
== END | disposition home or self-care (01) ==
LOC: RADCTMAIN 17:26
PROVIDERS: ATTEND Internal Medicine Interventional Cardiology
DX: I71.2 Thoracic aortic aneurysm, without rupture (principal)
CPT/HCPCS: 71275; Q9967

== ENCOUNTER → 2021-06-11 | Outpatient (CLI) | payer BC ==
--- NOTE | 2021-06-14 12:21 | MM ---
Reason for exam: screening (asymptomatic). Last mammogram was performed 1 year and 4 months ago. History: Patient is postmenopausal. Benign excisional biopsy of the left breast, April 30, 1999. Took estrogen for 13 years beginning at age 30. Physical Findings: A clinical breast exam by your physician is recommended on an annual basis and results should be correlated with mammographic findings. MG 3D Screening Mammo W/Cad Bilateral CC and MLO view(s) were taken. Prior study comparison: February 18, 2020, bilateral MG 3d screening mammo w/cad. May 21, 2018, bilateral MG 3d screening mammo w/cad. The breast tissue is heterogeneously dense. This may lower the sensitivity of mammography. There are benign appearing round calcifications bilaterally. There is no discrete abnormality. ASSESSMENT: Benign, BI-RAD 2 RECOMMENDATION: Routine screening mammogram of both breasts in 1 year.
== END | disposition home or self-care (01) ==
LOC: RADMAMWWP 16:34
PROVIDERS: ATTEND Obstetrics & Gynecology
DX: Z12.31 Encounter for screening mammogram for malignant neoplasm of breast (principal); Z78.0 Asymptomatic menopausal state; R92.1 Mammographic calcification found on diagnostic imaging of breast
CPT/HCPCS: 77063; 77067

== ENCOUNTER → 2021-12-22 | Outpatient (CLI) | payer BC ==
--- NOTE | 2021-12-22 23:53 | CT ---
EXAMINATION TYPE: CT sinus wo con DATE OF EXAM: 12/22/2021 COMPARISON: None available HISTORY: Chronic Sinusitis CT DLP: 676 mGycm. Automated Exposure Control for Dose Reduction was Utilized. TECHNIQUE: CT scan of the sinuses is performed without contrast, axial images are obtained, coronal r eformatted images are also reviewed. FINDINGS: Mild deviation of the bony nasal septum convex to the left side. Paradoxical middle turbinates. Unrem arkable inferior turbinates. No significant mucosal thickening of the nasal fossa bilaterally. Patent infundibulum and ostiomeatal complex bilaterally. Tiny polyp/retention cyst of the right maxil esha sinus measuring 7 mm, otherwise unremarkable maxillary sinuses. Unremarkable frontal sinus, ethmoid air cells and sphenoid sinus. Clear sphenoethmoidal recesses. Deg enerative changes of the left TMJ. Clear mastoid air cells. Unremarkable visualized portion of the br ain and orbits. IMPRESSION: 7 mm polyp/retention cyst within the right maxillary sinus, otherwise unremarkable paranasal sinuses. Other findings as described above.
== END | disposition home or self-care (01) ==
LOC: RADCTMAIN 16:56
PROVIDERS: ATTEND Otolaryngology
DX: J32.9 Chronic sinusitis, unspecified (principal); J34.1 Cyst and mucocele of nose and nasal sinus
CPT/HCPCS: 70486

== ENCOUNTER → 2021-12-27 | Outpatient (CLI) | payer BC ==
--- NOTE | 2021-12-27 17:50 | XR ---
EXAMINATION TYPE: XR lumbosacral spine min 4V DATE OF EXAM: 12/27/2021 COMPARISON: NONE INDICATION: 56-year-old female, spondylosis without myelopathy or radiculopathy TECHNIQUE: 5 views of the lumbar spine FINDINGS: Right S1. Previous right L5 and S1 fixation using a minh and 2 screws. No evidence of prosthesis break or displacement. Mild multilevel retrolisthesis seen from L1 down to L5. Degenerative changes of the lumbar spine with multilevel opposing endplate osteophytosis. Degenerated L1-2, L2-3 and L3-4 discs. L5-S1 disc prosthesis. No definite vertebral body collapse or acute displaced fracture. Suspected left L5-S1 facet osteoarth ropathy. IMPRESSION: Postoperative changes and degenerative changes as detailed above. Further MRI assessment can be consi dered if clinically required.
== END | disposition home or self-care (01) ==
LOC: RADXRMAIN 13:05
PROVIDERS: ATTEND Internal Medicine
DX: M47.26 Other spondylosis with radiculopathy, lumbar region (principal); M51.16 Intervertebral disc disorders with radiculopathy, lumbar region
CPT/HCPCS: 72110

== ENCOUNTER → 2022-01-26 | Outpatient (CLI) | payer BC ==
--- NOTE | 2022-01-27 05:19 | MR ---
EXAMINATION TYPE: MR lumbar spine wo/w con DATE OF EXAM: 01/26/2022 COMPARISON: 01/06/2010 HISTORY: Back pain that travels down both buttocks and thighs x10 years CONTRAST: Standard multiplanar, multisequence MRI departmental protocol images were obtained without contrast a nd with 7ml mL intravenous Gadavist gadolinium contrast. The lumbar vertebrae have normal alignment. There is metal artifact from posterior right side fusion surgery at L5-S1. No compression fracture. No evidence of any significant subluxation. There is some mild disc space narrowing at L5-S1. I do not see any significant neural foraminal narrowing. No focal bone destruction. No pathologic enh ancement no evidence of any significant spinal stenosis. Sacroiliac joints are intact. IMPRESSION: Previous posterior fusion surgery at L5-S1. No spinal stenosis. No adverse change compared to old exa ms
== END | disposition home or self-care (01) ==
LOC: RADMRIMAIN 16:25
PROVIDERS: ATTEND Internal Medicine
DX: M43.27 Fusion of spine, lumbosacral region (principal)
CPT/HCPCS: 72158; A9585

== ENCOUNTER 2022-04-15 08:00 | Day surgery (SDC) | payer BC ==
[2022-04-15 08:17] VITALS: RESP 16; TEMP 98
[2022-04-15] MEDS ORDERED: diazePAM 5 MG TAB PO STA (08:24)
--- NOTE | 2022-04-15 10:14 | CT ---
EXAMINATION TYPE: CT lumbar spine w con CT DLP: 915 mGycm, Automated exposure control for dose reduction was used. DATE OF EXAM: 04/15/2022 9:53 AM COMPARISON: MRI lumbar spine 01/26/2022, lumbosacral spine radiographs 12/27/2021. CLINICAL INDICATION:Female, 57 years old with history of M54.10 RADICULOPATHY, SITE UNSPECIFIED; PHH, Myelogram TECHNIQUE: Multiple axial images were obtained from the midportion of T11 through the sacroiliac jose juan nts after myelogram was performed. Soft tissue and bone windows in coronal and sagittal planes were obtained and reviewed. FINDINGS: Alignment/bone: There are 5 lumbar type vertebral bodies. Grade 1 anterolisthesis of L5 on S1 which i s stable. Post surgical changes from posterior right-sided fusion surgery at L5-S1 with pedicular scr ews and minh with right laminectomy defect. Disc spacer identified. Hardware appears intact. No surrou nding lucency. Discs: T12-L1: No spinal canal or neural foraminal stenosis is identified. L1-L2: No spinal canal or neural foraminal stenosis is identified. L2-L3: No spinal canal or neural foraminal stenosis is identified. L3-L4: No spinal canal or neural foraminal stenosis is identified. L4-L5: Disc bulge at L4-L5 with ligamentum flavum buckling and facet arthropathy contribute to mild spinal canal stenosis. L5-S1: Postsurgical changes with right-sided posterior fusion surgery. No central canal or neural for aminal stenosis. There is small ectasia of the right posterior dural sac likely related to prior surg gregor measuring up to 5 mm. Other: None IMPRESSION: 1. No evidence of fracture of the lumbar spine. 2. Postsurgical changes of right-sided posterior fusion at L5-S1. Hardware appears intact. 3. Disc bulge at L4-L5 with ligamentum flavum buckling and facet arthropathy contributing to mild spi nal canal stenosis.
--- NOTE | 2022-04-15 10:17 | FL ---
EXAMINATION TYPE: FL myelogram lumbosacral DATE OF EXAM: 04/15/2022 9:51 AM COMPARISON: CT lumbar spine of the same day. HISTORY: M54.10 RADICULOPATHY, SITE UNSPECIFIED Informed consent was obtained and all the patient's questions were answered. The L4-L5 level was loc alized under fluoroscopy. Standard sterile technique was utilized as well as appropriate local anest hesia 1% Lidocaine. Spinal needle was introduced into the thecal sac under fluoroscopic guidance and 5 mls of Isovue M200 was injected. This was performed by myself Dr. Yanes and Dr. Narvaez. The patient tolerated the procedure well and left the department in stable condition. CT myelography is to follow. 55 seconds of fluoroscopy time. 4 saved fluoroscopic images. IMPRESSION: Successful myelography lumbar spine
[2022-04-15] MEDS ORDERED: ACETAMINOPHEN TAB 325 MG TAB PO PRN (12:05)
[2022-04-15 13:01] VITALS: BP 131/74
[2022-04-15 14:29] VITALS: PULSE 75
== END 2022-04-15 13:40 | disposition home or self-care (01) ==
LOC: RADPROMAIN 08:00
PROVIDERS: ATTEND Orthopaedic Surgery
DX: M47.26 Other spondylosis with radiculopathy, lumbar region (principal); M48.061 Spinal stenosis, lumbar region without neurogenic claudication; Z98.1 Arthrodesis status; Z86.59 Personal history of other mental and behavioral disorders
CPT/HCPCS: 62304; 72132; J2001; Q9966

== ENCOUNTER → 2022-05-12 | Outpatient (CLI) | payer BC ==
[2022-05-12 09:23] VITALS: BP 126/87; PULSE 77; RESP 18
--- NOTE | 2022-05-12 14:58 | P.PAINPG ---
PQRS Measure Charge Sheet Comment: HISTORY OF PRESENT ILLNESS: 57 yr old female as a referral from Dr Yoo presents today w severe and chronic LBP secondary to DDD, spondylosis and facet arthropathy without myelopathy for evaluation. Pt states her pain level is currently at 3/10 in intensity, constant, localized in the lower lumbar spine, achy/burning in character w shooting towards the BLEs. Pain is provoked as high as 8/10 by standing/walking for periods of 15 minutes or more. Pain is alleviated w medications (Motrin, baclofen, Tylenol), injections (LESI), ice, PT 6 weeks which she is currently in, weekly chiropractic treatments 3 months which are ineffective, laying supine, repositioning and rest. Pt called clinic and stated she had lots of questions for the provider. Called and left message at 2:55 pm at number provided . PMH: Hyperlipidemia, HTN, MDD PSH: L5-S1 Fusion w Hardware placement/ L side removed, AAA, Colonoscopy (2019), C section, Heart Cath, Hysterectomy SH: No tobacco use, Occasional ETOH use, No illicit drug use FH: Non contributory All: See list Meds: See list REVIEW OF ORGAN SYSTEMS: CONSTITUTIONAL: No fevers or chills. No recent weight loss. NEUROLOGICAL: + numbness and tingling along the distal extremities. No seizure disorders or headaches. MUSCULOSKELETAL: + pain PSYCHIATRIC: Denies current depression or suicidal thoughts. Physical Examinations : Constitutional : Cooperative , not in acute distress . Neurologic : Cranial nerve II to XII intact. No focal neurological deficits. Psychiatric : alert & oriented x 3. Matching mood & appropriate affect. Judgment & insight intact. Musculoskeletal : Cervical Spine Motor strength in the deltoid and biceps: Normal right side. Normal Left side Motor strength biceps and the wrist extensors: Normal right side . Normal left side Motor strength in the triceps muscle: Normal right side. Normal left side Deep tendon reflexes: Normal at the biceps. Normal at Brachioradialis. Normal at triceps Vertebral body tenderness to deep palpation over Cervical facet loading test: positive bilaterally Spurling test: positive bilaterally Neck distraction test: positive bilaterally Terrance sign: positive bilaterally Lumbar spine Motor strength lower extremities ,thigh and legs 5/5 Right side , 5/5 Left side Deep tendon reflexes : Normal Knee Jerk. Normal Ankle Jerk Vertebral body tenderness over Lumbar facet Loading Test: positive Right / positive Left L4-L5 Range of motion of the lumbar spine Flexion 30 degrees, extension 10 degrees Straight Leg Raise test: Left/ Right positive at degree Kristina test: positive right / positive left. Severe tenderness over the Sacroiliac joint on the Right / Left sides Gaenslen test: positive bilaterally Seated flexion test: positive bilaterally. Sacral spine : Severe tenderness over the Sacroiliac joint: right side / left side Range of motion: Flexion of the lumbar spine <60 degrees Range of motion: Extension of the lumbar spine <20 degrees Gaenslen's Test positive Renato's Test positive Kristina test: positive right side / left side Thigh Thrust Test Sacral Thrust Test Imaging: MRI without contrast of the lumbar spine from 12/27/21 reviewed Assessment/ Plan : Lumbar DDD, lumbar spondylosis Recommendation of BL MBB L4-L5. May need a series of injections, up until RFA, for optimal pain relief. Risks, benefits of procedure discussed and patient verbalized understanding. Admits to aspirin or anti- coagulant use or medical history of diabetes. Protocol for discontinuation/ continuation of medications john procedure discussed. All questions answered. I have spent greater than 30 minutes on patient care today. Dr Cedeno was available by phone for the evaluation of this patient. The time was used to review the medical records including relevant urine studies and Prescription history (MAPs), review of the available imaging, evaluation and examination of the patient, coordination of care with the medical staff and if applicable referring physicians, as well as creation of the medical record - Pain Location Bilateral Lower Back Non-Pharmacological Interventions: Chiropractic Treatment, Ice, Inactivity, Physical Therapy, Sitting, Stretching Pharmacological Interventions: Epidural, PRN Medication, Scheduled Medication Home Medications: Ambulatory Orders Citalopram Hydrobromide [CeleXA] 20 mg PO DAILY 04/06/20 Rosuvastatin Calcium [Crestor] 5 mg PO HS 04/06/20 Zolpidem [Ambien] 5 mg PO HS PRN 04/06/20 Docusate [Colace] 100 mg PO DAILY 11/06/20 Multivitamins, Thera [Multivitamin (formulary)] 1 tab PO DAILY 11/06/20 Olmesartan/Hydrochlorothiazide [Benicar Hct 40-25 mg Tablet] 1 tab PO DAILY 11/06/20 Baclofen 10 mg PO DAILY 04/05/22 Controlled Substance Measures - Controlled Substance Measures Is patient prescribed a controlled substance at discharge?: No
== END | disposition home or self-care (01) ==
LOC: PNWHC3 08:32
PROVIDERS: ATTEND Specialist
DX: M47.896 Other spondylosis, lumbar region (principal); M51.36 Other intervertebral disc degeneration, lumbar region
CPT/HCPCS: 99211

== ENCOUNTER → 2022-06-24 | Outpatient (CLI) | payer BC ==
--- NOTE | 2022-06-24 22:50 | BD ---
EXAMINATION TYPE: Axial Bone Density DATE OF EXAM: 06/24/2022 COMPARISON: 02/18/2020 DEXA bone scan. CLINICAL HISTORY: 57 years year old Female. ICD-10 CODE: M85.851 OTH DISRD OF BONE DENSITY Height: 61.7 IN Weight: 169 LBS FRAX RISK QUESTIONS: Secondary Osteoporosis: 3. Menopause before 45: TOTAL HYST AGE 31 RISK FACTORS HISTORY OF: Surgery to Spine: L SPINE FUSION 2011 Active: YES Diet low in dairy products/other sources of calcium: YES Postmenopausal woman: TOTAL HYST AGE 31 Take estrogen and/or progesterone medications: NOT NOW How long: ERT 10+ YEARS MEDICATIONS: Additional Medications: MULTI VIT, CHOLESTEROL MEDS, DEPRESSION MEDS, DOXYCYCLINE, EXAM MEASUREMENTS: Bone mineral densitometry was performed using the Dipity System. L SPINE FUSION Bone mineral density about the R hip (g/cm2): 1.026 Bone mineral density about the L hip (g/cm2): 1.094 T Score values are as follows: -----R Neck: -0.1 -----L Neck: 0.4 -----R Total: 0.5 -----L Total: 0.5 Bone mineral density has: Decreased -0.3% since study of: 02/18/2020 Bone mineral density about the L Wrist (g/cm2): 0.561 T Score values are as follows: -----Dist. R+U: -1.3 -----Prox. R+U: -1.4 -----Radius total: -1.9 Bone mineral density has: Increased 2.6% since study of: 02/18/2020 FRAX%s: The graph provided illustrates a 5.8 chance for a major osteoporotic fx and a 0.1 chance for the hips probability for fx in 10 years time. IMPRESSION: Osteopenia (T Score between -2.5 and -1). There is slightly increased risk of fracture and the patient may be considered for treatment. Re-Screen 2-5 years. NOTE: T-SCORE=SD OF THE YOUNG ADULT MEAN.
--- NOTE | 2022-06-27 08:18 | MM ---
Reason for Exam: Screening (asymptomatic). Last screening mammogram was performed 12 month(s) ago. Patient History: Menarche at age 8. First Full-Term at age 26. Left ovary removed at age 30. Right ovary removed at age 30. Hysterectomy at age 30. Postmenopausal. Estrogen for 13 years from age 30 until age 43. 04/30/1999, Benign Excisional Biopsy on the left side. Risk Values: Sarika 5 year model risk: 2.0%. NCI Lifetime model risk: 10.7%. Prior Study Comparison: 05/21/2018 Bilateral Screening Mammogram, [facility]. 02/18/2020 Bilateral Screening Mammogram, [facility]. 06/11/2021 Bilateral Screening Mammogram, [facility]. Tissue Density: There are scattered fibroglandular densities. Findings: Analyzed By CAD. Benign-appearing bilateral axillary lymph nodes are redemonstrated. There is no suspicious new group of microcalcifications or new suspicious mass in either breast. Overall Assessment: Benign, BI-RAD 2 Management: Screening Mammogram of both breasts in 1 year. A clinical breast exam by your physician is recommended on an annual basis and results should be correlated with mammographic findings. Electronically signed and approved by: Lucas Mclean M.D.
== END | disposition home or self-care (01) ==
LOC: RADMAMWWP 10:56
PROVIDERS: ATTEND Internal Medicine
DX: Z12.31 Encounter for screening mammogram for malignant neoplasm of breast (principal); M85.89 Other specified disorders of bone density and structure, multiple sites; Z78.0 Asymptomatic menopausal state
CPT/HCPCS: 77063; 77067; 77080

== ENCOUNTER → 2022-12-12 | Outpatient (CLI) | payer BC ==
--- NOTE | 2022-12-13 07:07 | CT ---
EXAMINATION TYPE: CT angio chest DATE OF EXAM: 12/12/2022 COMPARISON: Prior CTA chest November 16, 2020 and older studies. HISTORY: Ascending thoracic aortic aneurysm follow up. CT DLP: 753.8 mGycm. Automated Exposure Control for Dose Reduction was Utilized. CONTRAST: CTA scan of the thorax is performed with IV Contrast, patient injected with 80cc mL of Isovue 370, an eurysm protocol. 3D reconstructed images are created on an independent workstation and reviewed. FINDINGS: LUNGS: The lungs remain grossly clear, there is no concerning parenchymal mass or nodule identified. There is no pleural effusion or pneumothorax seen. The tracheobronchial tree is patent. MEDIASTINUM: There is satisfactory enhancement of the central pulmonary arteries similar to prior pierce dy. No suspicious hyperdense material at noncontrast images to suggest intramural hematoma. Ascending aorta measures 3.9 cm in diameter in the root coronal image 62. Ascending aorta measures up to 4.2 c m axial image 67 and then approximate 3.9 cm at level of main pulmonary artery axial image 59. No ane urysm extension into the descending aorta. There is persistent three-vessel origin from the aortic ar ch. There are no greater than 1 cm hilar or mediastinal lymph nodes. No cardiomegaly or pericardial effusion is seen. OTHER: Cholecystectomy clips are redemonstrated. There is 2.4 cm simple appearing thin-walled cyst in the right lobe of liver redemonstrated. There is 1.9 cm simple appearing thin-walled cyst lateral se gment left hepatic lobe axial image 43. IMPRESSION: Stable ascending aortic aneurysm up to 4.2 cm from prior studies.
== END | disposition home or self-care (01) ==
LOC: RADCTMAIN 14:06
PROVIDERS: ATTEND Internal Medicine Interventional Cardiology
DX: I71.21 Aneurysm of the ascending aorta, without rupture (principal); K76.89 Other specified diseases of liver
CPT/HCPCS: 71275; Q9967

== ENCOUNTER 2023-04-18 07:12 | Day surgery (SDC) | payer BC ==
--- NOTE | 2023-04-17 19:51 | P.HPOR ---
History of Present Illness H&P Date: 03/24/23 Chief Complaint: R SIJ OA .D:Date: 03/24/23 : 08:28am .T:Title: [facility] Date of :[birth year] Age: 57 year Height: 5'2" Weight: 170 lbs BMI: 31.09 kg/m2 Occupation: [employer] VAS: 3 CHIEF COMPLAINT: Re-check on low back pain DOI:Chronic DOS: history of revision L5-S1 fusion with ROHINI on the left side in 2011 Duration of current treatment regiment: > 6 months HISTORY : Xrays No new xrays taken in office Trauma or injury No Work-Related No Pain description Aching & burning Location Posterior Patient notes that their pain radiates to left lower extremity Activity Modification No Hand Dominance Right TREATMENTS COMPLETED: 6 weeks of PT completed? Month and Year of last PT date? Current Yes How many sessions?12 Did it help? yes, mild relief Physician recommended home exercise completed? Duration of HEP course: Current Yes, Patient has trialed the physician directed home exercise program without relief of their symptoms. Medications Yes; List: Tylenol ES & Motrin Alternative interventions Chiropractic: yes, mild relief Massage therapy:No R.I.C.E: yes, rest and ice with relief Brace:No Injections x1 L4-5 Facet block with worsening symptoms RFA:No SUBJECTIVE: Ms. Izquierdo returns to the office today for a re-check on her low back pain. The patient reports experiencing a continued ache-like, burning pain throughout the low back that radiates down into the right buttock and right lower extremity. The patient states that her right leg pain is associated with numbness and tingling. The patient notes that her symptoms are exacerbated by prolonged walking, sitting, standing, twisting, and when going up the stairs. The patient notes that her symptoms make it very difficult for her to complete many of her activities of daily living. The patient reports experiencing moderate to severe night time symptoms that wake her from sleep. The patient has prior history of undergoing surgical intervention in the form of a revision L5-S1 fusion with removal of hardware upon the left side in 2011. The patient is currently taking Tylenol ES and Motrin with very minimal relief. The patient has also trialed conservative measures in the form of physical therapy, at home stretches/exercises, an L4-5 facet block, at home heat/ice therapies, and activity modification. She notes no significant or sustained relief after trialing all above listed modalities. She notes that the L4-5 facet block exacerbated her symptoms. The patient denies trialing any other modalities at this time. Otherwise the patient denies any f/c/sob/cp, no incision concerns, no bladder or bowel retention/incontinence, no perineal numbness/tingling, and ambulates independently today. HPI: Ms. Izquierdo returns to the office on 12/29/2022 for a re-check on her low back pain. The patient notes continued diffuse low back pain with a burning and ache- like quality. The patient notes continued pain radiating down into the left lower extremity, associated with numbness and tingling. The patient states that she has recently completed a course of physical therapy, which she feels increased strength and range of motion and decreased her pain. The patient has also trialed dry needling with improvement to her current symptoms. The patient notes that her continued symptoms are exacerbated by prolonged activity. The p atient is having mild sleep disturbances at this time due to her ongoing symptoms. The patient is currently taking Baclofen, Tylenol ES, and Motrin with relief of pain. The patient denies trialing any other modalities at this time. Otherwise the patient denies any f/c/sob/cp, no incision concerns, no bladder or bowel retention/incontinence, no perineal numbness/tingling, and ambulates independently today. Ms. Izquierdo returns to the office on 09/08/2022 for a recheck of their low back and to review her CT Myelogram obtained after the time of the last appointment. Since the time of the last appointment the patient reports no changes to her symptoms. The patient continues to complain of aching, burning low back pain extending into the left lower extremity. Overall the patient has seen a pr ogressive increase in symptoms since their onset. Ms. Izquierdo symptoms are exacerbated with prolonged standing and ambulation, due to this they notes that it is increasingly difficult for Ms. Izquierdo to complete many of their daily tasks. Patient is having severe sleep disturbances as well due to their ongoing pain and associated symptoms. Patient had L4-5 facet block injections that made her pain worse. The patient is currently in physical therapy with minimal relief. Regarding treatments, the patient has previously trialed all abovementioned treatment modalities without relief of her symptoms. Patient denies trialing any other modalities at this time. Otherwise the patient denies any f/c/sob/cp, no incision concerns, no bladder or bowel retention/incontinence, no perineal numbness/tingling, and ambulates independently. Ms. Izquierdo returns to the office on 04/20/2022 for a recheck of their low back and to review her CT Myelogram obtained after the time of the last appointment. Since the time of the last appointment the patient reports no changes to her symptoms. The patient continues to complain of aching, burning low back pain extending into the left lower extremity. Overall the patient has seen a progressive increase in symptoms since their onset. Ms. Izquierdo symptoms are exacerbated with prolonged standing and ambulation, due to this they notes that it is increasingly difficult for Ms. Izquierdo to complete many of their daily tasks. Patient is having severe sleep disturbances as well due to their ongoing pain and associated symptoms. Regarding treatments, the patient has previously trialed all abovementioned treatment modalities without relief of her symptoms. Patient denies trialing any other modalities at this time. Otherwise the patient denies any f/c/sob/cp, no incision concerns, no bladder or bowel retention/incontinence, no perineal numbness/tingling, and ambulates independently. Ms. Izquierdo last returned to the office on 03/23/2022 for a recheck of their low back. SInce the time of the last appointment the patient reports some modest improvements to her symptoms, namely her lower extremity weakness. Furthermore the patient does repot no changes to her back or radicular pain about the lower extremities. Overall the patient has seen a progressive increase in symptoms since their onset. Ms. Izquierdo symptoms are exacerbated with prolonged standing and ambulation, due to this they notes that it is increasingly difficult for Ms. Izquierdo to complete many of their daily tasks. Patient is having severe sleep disturbances as well due to their ongoing pain and associated symptoms. Regarding treatments, the patient has previously trialed all abovementioned modalities without relief of her pain but again has seen some mild improvements to her lower extremity weakness. Patient denies trialing any other modalities at this time. For their symptoms, the patient has been taking Motrin and Baclofen both without relief of her symptoms. Otherwise the patient denies any f/c/sob/cp, no incision concerns, no bladder or bowel retention/incontinence, no perineal numbness/tingling, and ambulates independently. Ms. Izquierdo was last seen on 02/15/2022 regarding their low back pain. Patient reports a aching, burning lumbar pain ongoing for 2 months with no known injury or trauma to indicate an exact onset of their symptoms. Of note the patient does have a history of a prior L5-S1 fusion done in 2011 with subsequent revision and removal of hardware after increased pain. In addition to their lumbar pain, they do report that it radiates into the left lower extremity, associated without numbness and tingling through the leg. Additionally the patient reports that her primary concern is not pain but bilateral lower extremity weakness that is significantly impacting her ability to stand for any length of time. Overall the patient has seen a progressive increase in symptoms since their onset. Ms. Izquierdo symptoms are exacerbated with standing and ambulation, due to this they notes that it is increasingly difficult for Ms. Izquierdo to complete many of their daily tasks. Patient is having moderate sleep disturbances as well due to their ongoing pain and associated symptoms. Regarding treatments, the patient has previously trialed home exercises which exacerbated her symptoms, ice and chiropractics with mild relief. Patient denies trialing any other modalities at this time. For their symptoms, the patient has been taking Baclofen QHS with mild relief and Motrin OTC without relief. She has previously trialed a medrol Dosepak without improvements. Otherwise the patient denies any f/c/sob/cp, no incision concerns, no bladder or bowel retention/incontinence, no perineal numbness/tingling, and ambulates independently. The patients' past social, medical, family, surgical history, as well as review of systems, have been reviewed. Please refer to the Neurosurgery History and Physical form that has been scanned in to our electronic medical record system. 16 points review of systems completed and as stated in HPI, all other systems reviewed are negative. Social History: Reviewed, see appropriate section of the chart for details. P3 Social History: Smoking: none P3 Alcohol: occasional alcohol P3 Family History: Reviewed, see appropriate section of the chart for details. P2 Past Medical History: Reviewed, see appropriate section of the chart for details. [id number] Medications: Rx: baclofen Ref: 0 Rx: citalopram 20 mg tablet Ref: 0 Rx: Motrin Ref: 0 Rx: olmesartan 40 mg-hydrochlorothiazide 25 mg tablet Ref: 0 Rx: Stool Softener Ref: 0 Rx: zolpidem 5 mg tablet Ref: 0 PHYSICAL EXAMINATION: General: Awake, alert, appropriate for age, in no acute distress. HEENT:No unusual neck masses around region of lateral neck triangle, thyroid, supraclavicular groove Heart: Regular rate and rhythm, normal S1, S2 and no murmur/gallop. Lungs:Clear to auscultation bilaterally with no use of accessory muscles. Extremities: Skin warm and dry without acute lesions, coloration, temperature, skin intact, no tenderness or erythema Integument: Hairy patches:ABSENT Dorsal skin dimples: ABSENT Cafe au lait spots:ABSENT Surgical incisions: Well healed lumbar incision Palpation: Please see Pain drawing on Intake sheet for further detail. Midline spinal tenderness: No E6 Cervical Tenderness: No E6 Paralumbar tenderness:Yes E6 Parathoracic tenderness:No E6 Buttocks tenderness:No E6 Sacroiliac Tenderness:Yes Right Compression + Right distraction - Right thigh thrust and FABER4+ Neg hip thrust POSTURAL and MUSCULO-SKELETAL EVALUATION: Coronal Balance: NEUTRAL Recumbent testing: Patient isable to lay flat on back Sagittal Balance:NEUTRAL Shoulder Profile:LEVEL Pelvic Girdle:LEVEL Neck ROM:UNRESTRICTED Lumbar ROM:RESTRICTED Shoulder ROM:Symmetrical Hip ROM:Symmetrical Knee ROM:Symmetrical Hands: Normal appearance, Symmetrical Feet:Normal appearance, Symmetrical VASCULAR STATUS : LEFT RIGHT Wrist Pulses INTACT INTACT Pedal Pulses (Dors. pedis & post.tibialis) INTACT INTACT Color NORMAL NORMAL Edema Absent Absent NEUROLOGIC EXAMINATION: Mental Status:Awake and alert, fully oriented, with normal attention, concentration and memory, and fluent, appropriate speech. Cranial Nerves: I: Olfactory not tested. II: Visual acuity normal, no visual field deficit noted with confrontation. III,IV: Normal pupillary reflexes & intact extraocular movements without nystagmus. V,: Intact symmetrical facial sensation. VII: Intact symmetrical facial motor movement VIII: Hearing intact. IX,X: Intact gag, swallow, & normal voice. XI: Sternocleidomastoid, trapezius function intact. XII: Tongue midline with normal movements. L'hermitte's Sign: Negative / absent Spurling'Sign:Absent bilaterally. Cubital percussion test:Absent bilaterally. Robin-Tinel sign - Carpal region:Absent bilaterally. Straight Leg Raising:Absent bilaterally. Crossed straight leg raise:negative O8 MOTOR EXAM (0-5/5, N/T) UPPER EXTREMITY Shoulder Abduction Biceps Triceps Wrist Extension Hand Intrinsics Resolution Agent Right 5/5 5/5 5/5 5/5 5/5 5/5 Left 5/5 5/5 5/5 5/5 5/5 5/5 LOWER EXTREMITY Hip Flexion Knee Extension Knee Flexion DF PF EHL FHL Right 4+/5 4+/5 4+/5 4+/5 4+/5 4+/5 4+/5 Left 5/5 5/5 5/5 5/5 5/5 5/5 5/5 REFLEXES(0-4/2, NT)Upper ExtremityLower Extremity Right 2 2 Left 2 2 Pathological Reflexes RIGHT LEFT Robin's Absent Absent Clonus Absent Absent Babinski Absent Absent # Indicates mechanical impairment Muscle appearance: Symmetrical, without signs of atrophy or dystrophy. Sensory system (0-4, N/T) Test type RU DURAN RL LL Joint-Position 2 2 2 2 Vibration 2 2 2 2 Pain & LT sense 2 2 2 2 Dermatomal Deficit: None None L5-S1 None Gait and Functional Evaluation: Ambulatory aids:Independent Romberg's test:Intact bilaterally Toe heel walk / heel-toe walk intact while maintaining satisfactory balance?No Squatting/straightening w/o assistance to a min of 60 degree knee flexion? No Single leg stance:intact Trendelenburg sign negative bilaterally Hand and finger dexterity intact bilaterally?yes Disdiadochokinesis examination negative bilaterally? yes RADIOGRAPHS: No new imaging to review. Please see previous notes. ASSESSMENT: 1. Right sacroiliitis 2. Right-sided low back pain 3. L4-S1 spondylosis with stenosis 4. s/p revision L5-S1 fusion with ROHINI on the left side in 2011 PLAN: All options were reviewed today, we decided the best course of action would be: - I have discussed treatment options with the patient in detail today. Presently, I have recommended that she patient proceed with right SI joint injections, performed by myself, to further elucidate the causation of her current symptoms. I discussed with her in detail that if the injections exacerbate her symptoms or provide her with temporary relief than we may discuss surgical intervention in the form of a right SI joint fusion. If the injections provide her with significant, sustained relief then she may elect to hold off on surgical intervention and continue exhausting conservative treatment measures. The patient is in agreement to proceed with the following procedure at this time: Right SI joint injection - I have sent a prescription to the patient's pharmacy today for Flexeril 10 mg. - Advised patient to continue with supplements, health maintenance, and home exercise programs. Patient expressed understanding and will continue with these modalities. - Take pain medications and post op medications as needed and as directed - Ice and rest for pain and swelling control. Spine Surgery Risk Review Ms. Izquierdo is presenting for evaluation of right-sided low back and bilateral lower extremity pain. It was my pleasure to have seen and examined Ms. Izquierdo. In our visit today we have had a chance to go over subjective complaints, physical examination findings and treatments including the natural course h istory without intervention and various interventional options. The patients imaging demonstrates: XRay taken on 02/15/22 of Lumbar Spine and Pelvis: Images reviwed today demonstrate post surgical changes at L5-S1 with unilateral right sided screws and minh with interbody cage from the right side. There is interval removal of hardware noted as well at the same level. The S1 screw shows fatigue and is likely broken at mid point. There is no listhesis. There is questionable anterior bone formation and complete fusion. There is no facet fusion noted at this time. No fractures noted. Trace anterior listhesis still present L5-S1. Mild retrolisthesis L4-5, compensatory. No lesions. CT myelogram reviewed at [facility] on 05/26/22: This is reviewed and demonstrates post surgical changes at L5-S1 with right sided unilateral fixation. The S1 screw is fractured mid point and is likely loose. There is pseudoarthrosis noted at L5-S1 posteriorly, there is some bone formation anteriorly however. This is somewhat incomplete fusion. There is still grade I spondylolisthesis of this level. There is ASD of L4-5 noted with disc height collapse, facet arthropathy and central stenosis related to ligamental hypertrophy, scar tissue and arthropathy with overgrowth. No fractures noted. No lesions. On physical exam, Ms. Izquierdo demonstrates: a continued ache-like, burning pain throughout the low back that radiates down into the right buttock and right lower extremity. The patient states that her right leg pain is associated with numbness and tingling. The patient notes that her symptoms are exacerbated by prolonged walking, sitting, standing, twisting, and when going up the stairs. The patient notes that her symptoms make it very difficult for her to complete many of her activities of daily living. The patient reports experiencing moderate to severe night time symptoms that wake her from sleep. I have explained to the patient that as their condition progresses it will cause further neurological deficits and eventual paralysis. Based on the patients imaging, physical exam, and the rapid progression and disabling nature of their symptoms, at this time I recommend surgery in the form of a: Right SI joint injection. I discussed the risk and benefits of this procedure at length with Ms. Izquierdo. The patient agreed to considered pursuing the procedure abovementioned. Prior to surgery, she should follow up with her PCP (Cardio, ID, IM etc) for clearance. Questions were invited and answered, and the patient wishes to proceed as outlined below. Currently, I am recommendin.Right SI joint injection 2.Follow up with PCP for surgical clearance 3.Review of surgical risks and benefits as well as an educational packet on the proposed surgical procedure. Risks: All surgical procedures come with inherent risks, including those related to positioning, anesthesia, intraoperative findings, and postoperative compli cations. It is important to understand that surgery does not come with any guarantee of a successful outcome as complications and adverse events are always possible. The patient was given a handout in office today discussing the surgical procedure and risks associated with the intervention, both of which were discussed with the patient. These risks include but are not limited to the following: * Experiencing same, different or even worse symptoms in back, neck, arms, or legs compared to before surgery. Requiring further surgery or other forms of treatment presently or at some time in the future at same or other levels of the intended spine surgery. On an extreme but fortunately relatively rare basis severe complication such as blindness, stroke, heart attack, temporary and/or permanent nerve injury, paralysis, coma, or may occur, sometimes without known explanation. Surgical complications may include but are not limited to risk of infection, fluid accumulation in the surgical dissection site, including a seroma or hematoma, that requires additional surgery, wound drainage, bleeding, new numbness or weakness, vision changes/loss, spinal fluid leakage, non-healing and/or infected incision, headaches, difficulty or inability to swallow, hoarseness, hemopneumothorax, pneumothorax, impotence, retrograde ejaculation, vaginal dryness; injury to nerves, spinal cord, blood vessels, lymphatics or other vital organs (i.e., bowel injury, injury to the great vessels); heterotopic bone formation; complications related to the hardware such as screws, rods, cages including misplaced hardware, device failure, instrumentation at the wrong spine level, hardware fracture/breakage, or hardware loosening; vertebral failure of the spinal column above or below the newly placed hardware; retained surgical instrumentations or devices and the need for further surgery. * Medical risks of the planned spine surgery include but are not limited to generalized Infections to the whole body or local areas outside of the surgical site (sepsis), heart attack, bleeding, anaphylaxis, meningitis, seizure, epilepsy, hearing loss, burn ponce, laceration of the head or other areas of the body, bruising, hypersensitivity of the skin, bladder over distension; allergic reaction; shoulder injury related to positioning; fat, blood and air clots to other areas of the body like heart, lungs, brain; failure of internal organs such as lungs, kidneys, liver and excessive bleeding. If blood transfusions are necessary, note that transfusions may cause intolerance reactions such as anaphylaxis or other complex reactions. Despite best efforts, the results of spine surgery might not heal in terms of bone, soft tissues such as skin, fascia, ligaments, and joints. Additionally, in order to achieve best possible results, spine surgery may be carried out beyond the initially planned levels and involve decompression, fusion including insertion of hardware at levels other than the original intended area of surgical interest change some portions of the procedure in order to ensure the best possible outcomes. With spine surgery and spinal fusion, there are different off label uses of instrumentation (devices, implants and hardware) as well as biological substances (bone morphogenic proteins, demineralized bone matrix) as well as using extra bone from allograft sources (i.e. cadaver bone) or autograft (iliac crest bone, ribs, or the spine itself). The patient has been given information about these practices and their inherent risks and benefits. [facility] is an educational center that serves as a training facility for neurosurgical and orthopedic [employer] and Nursing students. Physician assistants are medically trained surgical providers who function in the outpatient, inpatient, and operating room setting under the direct supervision of the attending surgeon. [facility] has multiple operating rooms with single and overlapping sina ms running daily. They currently function under the required guidelines as produced by the [employer] with regards to the overlapping rooms and will continue to comply with changes to this policy as they occur. The requirements include and are complied with as follows: (1) the critical portions of the overlapping rooms will not occur at the same time, (2) the attending physician will be physically present during the critical portions of the procedure and immediately available during the entire case, and (3) a back-up attending is designated should the primary attending not be immediately available. The patient has had a chance to review all the listed information, has been given print outs detailing this information, and has had all his/her questions answered to their satisfaction. It was my pleasure to have seen and examined Ms. Izquierdo. In our visit today we have had a chance to go over my understanding of our patient's current condition, the natural course history without intervention and various interventional options. Questions were invited and answered, and the patient wishes to proceed as outlined above. I have seen and examined the patient for 25 minutes and we have spent more than 50% of the time in repeat and detailed counseling about the patient's condition, its natural course history with out and as much as can be predicted with surgery and re-review of various surgical treatment options. In conclusion, Ms. Izquierdo requested we proceed with the above suggested surgery and are willing to accept risks and limitations of the suggested surgery as nature of the disease process and our best attempts at treatment for the condition. Thank you again for allowing us to be part of your patient's care. Please don't hesitate to contact me if you have any further questions. Follow- up: 4 weeks after first right SI joint injection Patient Education: (Informational booklet, instructions, etc) given at today's appointment: Yes .ED:Patient Education: Y Medications Reviewed: YES Attestation: In our visit today Ms. Izquierdo and I have had a chance to go over my understanding of the patient's current condition, the natural course history without intervention and various interventional options. Questions were invited and answered, and the patient wishes to proceed as outlined above. I will be sure to keep you updated afterMs. Izquierdo returns here for further follow-up. Thank you again for your referral. Please do not hesitate to contact me if you have any further questions. Signed and authenticated by: Gutierrez Carranza Jackelyn Mcclain [facility] [address] [place] [address] This message is confidential, intended only for the named recipient(s) and may contain information that is privileged or exempt from disclosure under applic able law. If you are not the intended recipient(s), you are notified that the dissemination, distribution or copying of this information is strictly prohibited. If you received this message in error, please notify the sender then delete this message. Patient verbalizes understanding of the information discussed. The above note was initiated by Mimi Beltran, physician recording yard assistant for Dr. Gutierrez Yoo. This note has been reviewed by Dr. Yoo, who has made his personal changes and impressions for this document. CC: Sherlyn Jacobo M.D. Past Medical History Past Medical History: Hyperlipidemia, Hypertension, Musculoskeletal Disorder Additional Past Medical History / Comment(s): aortic aneurysm, back pain History of Any Multi-Drug Resistant Organisms: None Reported Past Surgical History: Back Surgery, Section, Cholecystectomy, Heart Catheterization, Hysterectomy Additional Past Surgical History / Comment(s): colonoscopy, back surgery x2. pain procedures Past Anesthesia/Blood Transfusion Reactions: No Reported Reaction Smoking Status: Never smoker Medications and Allergies Home Medications Medication Instructions Recorded Confirmed Type Citalopram Hydrobromide [CeleXA] 20 mg PO DAILY 04/06/20 04/12/23 History Rosuvastatin Calcium [Crestor] 5 mg PO HS 04/06/20 04/12/23 History Zolpidem [Ambien] 5 mg PO HS PRN 04/06/20 04/12/23 History Docusate [Colace] 100 mg PO DAILY 11/06/20 04/12/23 History Multivitamins, Thera [Multivitamin 1 tab PO DAILY 11/06/20 04/12/23 History (formulary)] Olmesartan/Hydrochlorothiazide 1 tab PO DAILY 11/06/20 04/12/23 History [Benicar Hct 40-25 mg Tablet] Allergies Allergy/AdvReac Type Severity Reaction Status Date / Time apple Allergy Anaphylaxis Verified 04/12/23 10:22 bacitracin Allergy Rash/Hives Verified 04/12/23 10:22 [From Neosporin ([id number])] lanolin Allergy Rash/Hives Verified 04/12/23 10:22 neomycin Allergy Rash/Hives Verified 04/12/23 10:22 [From Neosporin ([id number])] pear Allergy Anaphylaxis Verified 04/12/23 10:22 polymyxin B Allergy Rash/Hives Verified 04/12/23 10:22 [From Neosporin ([id number])] adhesive tape AdvReac skin welts Verified 04/12/23 10:22 hydromorphone [From Dilaudid] AdvReac severe Verified 04/12/23 10:22 headache Physical Examination Osteopathic Statement: *. No significant issues noted on an osteopathic structural exam other than those noted in the History and Physical/Consult.
[~2023-04-18 07:12] MED LIST changes: -LACTATED RINGERS 1,000 ML IV SCH; -LIDOCAINE 1% (10MG/ML) FOR IV START INTRADERMA PRN; +Pre Op ABX Message 1 EACH MISC MISCELLANE ONE
[2023-04-18] MEDS ORDERED: ALPRAZolam 0.5 MG TAB ONE (07:28)
[2023-04-18] MEDS ORDERED: ALPRAZolam 0.5 MG TAB PO ONE (07:29)
[2023-04-18] MEDS ORDERED: methylPREDNISolone ACETATE 40 MG/ML 1 ML VIAL INTRAARTIC ONE (07:39)
[2023-04-18] MEDS ORDERED: BUPIVACAINE (PF) 0.5% 30 ML VIAL SQ ONE (07:39)
[2023-04-18] MEDS ORDERED: LIDOCAINE 2%-EPI 1:100,000 20 ML VIAL SQ ONE (07:39)
[2023-04-18 07:40] VITALS: RESP 16; TEMP 97.2
[2023-04-18] MEDS ORDERED: IOPAMIDOL-370 50ML BTL MISCELLANE ONE (07:45)
[2023-04-18 07:55] VITALS: BP 104/68; PULSE 84
--- NOTE | 2023-04-18 07:59 | FL ---
Intraoperative/procedural fluoroscopic services were provided for SI joint injection. Total fluorosco py time is 3.4 seconds with a total of 1 submitted image to PACS. Total DAP 0.4971 Gycm2. Please see the operative note for further details.
--- NOTE | 2023-04-18 09:40 | P.OP ---
Date of Procedure: 04/18/23 Preoperative Diagnosis: 1. B/L SIJ OA and pain 2. Low back pain Postoperative Diagnosis: 1. B/L SIJ OA and pain 2. Low back pain Procedure(s) Performed: 1. Right SIJ injection under flouroscopic guidance. Anesthesia: local Surgeon: Gutierrez Yoo Estimated Blood Loss (ml): 2 IV fluids (ml): 0 Urine output (ml): 0 Pathology: none sent Condition: stable Disposition: PACU Indications for Procedure: 58 yo female presents with Right SIJ pain +provocotive testing and continued pain. She has had multiple injections in the past, but continues to have pain. She would like to proceed with injection of the right SIJ. She has reviewed the risks and benefits and is willing to proceed and accept all the risk of injection. Description of Procedure: Bilateral SIJ injection The patient was seen and examined in the preoperative area. All preoperative protocols were followed. Informed consent was obtained, risks and benefits of the procedure were discussed at length. Risks including bleeding infection damage to the surrounding tissue and risk of reoperation were discussed with the patient. Risk of anesthesia up to and including was discussed with the patient. These are outlined in the risk review. They were willing to accept these risks and all of the risks of surgery. The patient was seen and evaluated by the anesthesia team who deemed them fit for surgery. The site was marked, the patient was willing to proceed with the procedure. The patient was transferred to the operative suite by the Department of anesthesia. They were then drifted off to sleep by the department anesthesia and sedation with local was performed. The patient tolerated this well. Once confirmation of lines and ventilation the patient was transferred to a prone Alexis table very carefully. All bony prominences including wrists, elbows, axilla, chest, hips, and thighs, and feet were padded very well. Special attention was paid to the genitalia and these were padded accordingly. SCDs were placed on bilateral lower extremities and were connected. Arms were well padded and placed on arm boards up and out in the 90/90 position. Once in position, again we confirmed good ventilation capabilities and that lines were running appropriately. The patient's lumbopelvic spine was then exposed. 1010s were placed outlining the incision site. Standard alcohol was used to clean the incision site and allowed to dry. C-arm was used to biomark the patient and confirm level for incision which was marked with a skin marker. Operative briefing was performed with all teams and everyone in agreement to proceed. The patient was then prepped and draped in a normal sterile fashion. Timeout was then performed and all parties were in agreement with the procedure to be performed. Biplanar fluoroscopy was used to identify the bilateral SI joints which were then accessed with a 18-gauge needle after anesthetic was placed into the subcutaneous tissue in the form of 1% with epinephrine of lidocaine along with a mixture of cortical percent Marcaine without epinephrine. Once there is good anesthesia and the SI joints were accessed Isovue was used to confirm within the joint space. Once this was confirmed 40 of Kenalog along with a mixture of lidocaine and Marcaine were injected into the SI joint. Patient remained stable the entire time without any radicular symptoms during the injection phase. The needles were withdrawn and the area cleaned and Band-Aids placed. The patient was transferred back to their hospital bed atraumatically. Patient was then awakened and extubated by the department of anesthesia having tolerated the procedure very well with no complications. They were transferred to the postoperative care unit in stable condition.
== END 2023-04-18 08:05 | disposition home or self-care (01) ==
LOC: OR 07:12
PROVIDERS: ATTEND Orthopaedic Surgery
DX: M46.1 Sacroiliitis, not elsewhere classified (principal); M47.817 Spondylosis without myelopathy or radiculopathy, lumbosacral region; M48.07 Spinal stenosis, lumbosacral region; I10 Essential (primary) hypertension; E78.5 Hyperlipidemia, unspecified; Z98.1 Arthrodesis status; Z79.899 Other long term (current) drug therapy; Z88.5 Allergy status to narcotic agent
CPT/HCPCS: 27096; J1030; Q9967; J0665

== ENCOUNTER 2023-05-10 19:29 | Emergency (ER) | payer BC ==
--- NOTE | 2023-05-10 20:31 | ED ---
General Adult HPI - General Source: patient, family Mode of arrival: wheelchair Limitations: no limitations <Madai Camara - Last Filed: 05/10/23 20:31> <Armond Navarro - Last Filed: 05/11/23 00:47> - General Stated complaint: bilateral leg pain Time Seen by Provider: 05/10/23 20:31 - History of Present Illness Initial comments: 58-year-old female presenting with chief complaint of lower extremity swelling and pain. Symptoms have been worsening over the last few days. (Madai Camara) Dictation was produced using [employer] dictation software. please excuse any grammatical, word or spelling errors. Chief Complaint: 58-year-old female presents with bilateral feet pain History of Present Illness: This is a 58-year-old female presents emergency Department with painful nodules to her bilateral feet. She went to see the orthopedic doctor because of her chronic back pain. Orthopedic doctor told her that the nodules may be secondary to condition, from her heart. She has a history of 4.2 cm aortic aneurysm. Patient has any fever or chills she complains that she has painful nodules to bilateral feet. States it is difficult to walk. The ROS documented in this emergency department record has been reviewed and confirmed by me. Those systems with pertinent positive or negative responses have been documented in the HPI. All other systems are other negative and/or noncontributory. (Armond Navarro) - Related Data Home Medications Medication Instructions Recorded Confirmed Citalopram Hydrobromide [CeleXA] 20 mg PO DAILY 04/06/20 04/18/23 Rosuvastatin Calcium [Crestor] 5 mg PO HS 04/06/20 04/18/23 Zolpidem [Ambien] 5 mg PO HS PRN 04/06/20 04/18/23 Docusate [Colace] 100 mg PO DAILY 11/06/20 04/18/23 Multivitamins, Thera [Multivitamin 1 tab PO DAILY 11/06/20 04/18/23 (formulary)] Olmesartan/Hydrochlorothiazide 1 tab PO DAILY 11/06/20 04/18/23 [Benicar Hct 40-25 mg Tablet] Previous Rx's Medication Instructions Recorded HYDROcodone/APAP 5-325MG [Rock 1 tab PO Q6HR PRN 3 Days #12 tab 05/11/23 5-325] Allergies Allergy/AdvReac Type Severity Reaction Status Date / Time apple Allergy Anaphylaxis Verified 05/10/23 20:24 bacitracin Allergy Rash/Hives Verified 05/10/23 20:24 [From Neosporin ([id number])] lanolin Allergy Rash/Hives Verified 05/10/23 20:24 neomycin Allergy Rash/Hives Verified 05/10/23 20:24 [From Neosporin ([id number])] pear Allergy Anaphylaxis Verified 05/10/23 20:24 polymyxin B Allergy Rash/Hives Verified 05/10/23 20:24 [From Neosporin ([id number])] adhesive tape AdvReac skin welts Verified 05/10/23 20:24 hydromorphone [From Dilaudid] AdvReac severe Verified 05/10/23 20:24 headache Review of Systems ROS Other: All systems not noted in ROS Statement are negative. <Madai Camara - Last Filed: 05/10/23 20:31> ROS Other: All systems not noted in ROS Statement are negative. <Armond Navarro - Last Filed: 05/11/23 00:47> ROS Statement: Those systems with pertinent positive or pertinent negative responses have been documented in the HPI. Past Medical History Past Medical History: Hyperlipidemia, Hypertension Additional Past Medical History / Comment(s): aortic aneurysm, back pain History of Any Multi-Drug Resistant Organisms: None Reported Past Surgical History: Back Surgery, Section, Cholecystectomy, Heart Catheterization, Hysterectomy Additional Past Surgical History / Comment(s): colonoscopy, back surgery x2. spinal injections x4 Past Anesthesia/Blood Transfusion Reactions: No Reported Reaction Smoking Status: Never smoker <Madai Camara - Last Filed: 05/10/23 20:31> General Exam <Madai Camara - Last Filed: 05/10/23 20:31> <Armond Navarro - Last Filed: 05/11/23 00:47> - General Exam Comments Initial Comments: Visual Physical Exam Vital signs reviewed General: Well-appearing, nontoxic, no acute distress. Head: Normocephalic, atraumatic Eyes: PERRLA, EOMI ENT: Airway patent Chest: Nonlabored breathing Skin: No visual rash, normal skin tone Neuro: Alert and oriented 3 Musculoskeletal: No gross abnormalities (Madai Camara) PHYSICAL EXAM: General Impression: Alert and oriented x3, not in acute distress HEENT: Normocephalic atraumatic, extra-ocular movements intact, pupils equal and reactive to light bilaterally, mucous membranes moist. Cardiovascular: Heart regular rate and rhythm Chest: Able to complete full sentences, no retractions, no tachypnea Abdomen: abdomen soft, non-tender, non-distended, no organomegaly Musculoskeletal: Pulses present and equal in all extremities, no peripheral edema Motor: no focal deficits noted Neurological: CN II-XII grossly intact, no focal motor or sensory deficits noted Skin: Intact with no visualized rashes Psych: Normal affect and mood (Armond Navarro) Course Vital Signs 05/10/23 20:26 Temperature 99.7 F H Pulse Rate 97 Respiratory 18 Rate Blood Pressure 154/86 O2 Sat by Pulse 98 Oximetry Medical Decision Making - Lab Data Result diagrams: 05/10/23 22:57 05/10/23 22:57 <Armond Navarro - Last Filed: 05/11/23 00:47> - Medical Decision Making Was pt. sent in by a medical professional or institution (, PA, MECHANIC GENERAL OPERATIONAL TEST, urgent care, hospital, or residential...) When possible be specific @ -No Did you speak to anyone other than the patient for history (EMS, parent, family, police, friend...)? What history was obtained from this source @ -No Did you review nursing and triage notes (agree or disagree)? Why? @ -I reviewed and agree with nursing and triage notes Were old charts reviewed (outside hosp., previous admission, EMS record, old EKG, old radiological studies, urgent care reports/EKG's, residential records)? Report findings @ -No old charts were reviewed Differential Diagnosis (chest pain, altered mental status, abdominal pain women, abdominal pain men, vaginal bleeding, musculoskeletal, weakness, fever, dyspnea, syncope, headache, dizziness, GI bleed, back pain, seizure, CVA, palpatations, mental health)? @ -not applicable EKG interpreted by me (3pts min.). @ -My EKG interpretation: Ventricular rate 85, sinus rhythm, NV interval 156, QRS 90, QTc 412. No NV prolongation, no QTC prolongation, no ST or T-wave c hanges noted. Overall, this EKG is unremarkable X-rays interpreted by me (1pt min.). @ -X-rays negative of the foot of the chest CT interpreted by me (1pt min.). @ -None done U/S interpreted by me (1pt. min.). @ -Venous Doppler study of the bilateral lower extremities are negative for DVT What testing was considered but not performed or refused? (CT, X-rays, U/S, labs)? Why? @ -None What meds were considered but not given or refused? Why? @ -None Did you discuss the management of the patient with other professionals (professionals i.e. , PA, MECHANIC GENERAL OPERATIONAL TEST, lab, RT, psych nurse, clinical social worker, makeup instructor, teacher, chief accounting officer, case folder)? Give summary @ -No Was smoking cessation discussed for >3mins.? @ -No Was critical care preformed (if so, how long)? @ -No Were there social determinants of health that impacted care today? How? (Homelessness, low income, unemployed, alcoholism, drug addiction, transportation, low edu. Level, literacy, decrease access to med. care, long-term, rehab)? @ -No Was there de-escalation of care discussed even if they declined (Discuss DNR or withdrawal of care, Hospice)? DNR status @ -No What co-morbidities impacted this encounter? (DM, HTN, Smoking, COPD, CAD, Ca ncer, CVA, ARF, Chemo, Hep., AIDS, mental health diagnosis, sleep apnea, morbid obesity)? @ -None Was patient admitted / discharged? Hospital course, mention meds given and route, prescriptions, significant lab abnormalities, going to OR and other pertinent info. @ 58 -Year-old female presents to the emergency department for bilateral foot pain. Patient smiles or negative. She was told by orthopedic surgeon that her foot pain could be cardiac related. Labs are negative. Cardiac workup is negative. Patient observed in emergency department for 5 hours and 15 minutes. Reevaluated bedside at 12:45 AM found to be in stable medical condition. Patient told to follow up with money room teller or foot and ankle specialist. Undiagnosed new problem with uncertain prognosis? @ -No Drug Therapy requiring intensive monitoring for toxicity (Heparin, Nitro, Insulin, Cardizem)? @ -No Were any procedures done? @ -No Diagnosis/symptom? Acute, or Chronic, or Acute on Chronic? Uncomplicated (without systemic symptoms) or Complicated (systemic symptoms)? @ -Bilateral foot pain Side effects of treatment? @ -No Exacerbation, Progression, or Severe Exacerbation? @ -No Poses a threat to life or bodily function? How? (Chest pain, [place], AL, pneumonia, PE, COPD, DKA, ARF, appy, cholecystitis, CVA, Diverticulitis, Homicidal, Suicidal, threat to staff... and all critical care pts) @ -No (Armond Navarro) - Lab Data Lab Results 05/10/23 05/10/23 05/10/23 Range/Units 22:57 22:57 22:57 WBC 8.7 (3.8-10.6) k/uL RBC 3.95 (3.80-5.40) m/uL Hgb 12.4 (11.4-16.0) gm/dL Hct 34.8 (34.0-46.0) % MCV 88.0 (80.0-100.0) fL MCH 31.4 (25.0-35.0) pg MCHC 35.6 (31.0-37.0) g/dL RDW 13.2 (11.5-15.5) % Plt Count 251 (150-450) k/uL MPV 7.6 Neutrophils % 70 % Lymphocytes % 21 % Monocytes % 5 % Eosinophils % 2 % Basophils % 0 % Neutrophils # 6.1 (1.3-7.7) k/uL Lymphocytes # 1.8 (1.0-4.8) k/uL Monocytes # 0.5 (0-1.0) k/uL Eosinophils # 0.1 (0-0.7) k/uL Basophils # 0.0 (0-0.2) k/uL PT 10.2 (10.0-12.5) sec INR 0.9 (<1.2) APTT 24.1 (22.0-30.0) sec Sodium 134 L (137-145) mmol/L Potassium 4.0 (3.5-5.1) mmol/L Chloride 95 L (98-107) mmol/L Carbon Dioxide 27 (22-30) mmol/L Anion Gap 12 mmol/L BUN 19 H (7-17) mg/dL Creatinine 0.74 (0.52-1.04) mg/dL Est GFR (CKD-EPI)AfAm >90 (>60 ml/min/1.73 sqM) Est GFR (CKD-EPI)NonAf 89 (>60 ml/min/1.73 sqM) Glucose 98 (74-99) mg/dL Plasma Lactic Acid Lisandro (0.7-2.0) mmol/L Calcium 9.6 (8.4-10.2) mg/dL Total Bilirubin 0.6 (0.2-1.3) mg/dL AST 21 (14-36) U/L ALT 20 (4-34) U/L Alkaline Phosphatase 58 (38-126) U/L Troponin I (0.000-0.034) ng/mL NT-Pro-B Natriuret Pep 44 pg/mL Total Protein 7.3 (6.3-8.2) g/dL Albumin 4.4 (3.5-5.0) g/dL 05/10/23 05/10/23 Range/Units 22:57 22:57 WBC (3.8-10.6) k/uL RBC (3.80-5.40) m/uL Hgb (11.4-16.0) gm/dL Hct (34.0-46.0) % MCV (80.0-100.0) fL MCH (25.0-35.0) pg MCHC (31.0-37.0) g/dL RDW (11.5-15.5) % Plt Count (150-450) k/uL MPV Neutrophils % % Lymphocytes % % Monocytes % % Eosinophils % % Basophils % % Neutrophils # (1.3-7.7) k/uL Lymphocytes # (1.0-4.8) k/uL Monocytes # (0-1.0) k/uL Eosinophils # (0-0.7) k/uL Basophils # (0-0.2) k/uL PT (10.0-12.5) sec INR (<1.2) APTT (22.0-30.0) sec Sodium (137-145) mmol/L Potassium (3.5-5.1) mmol/L Chloride (98-107) mmol/L Carbon Dioxide (22-30) mmol/L Anion Gap mmol/L BUN (7-17) mg/dL Creatinine (0.52-1.04) mg/dL Est GFR (CKD-EPI)AfAm (>60 ml/min/1.73 sqM) Est GFR (CKD-EPI)NonAf (>60 ml/min/1.73 sqM) Glucose (74-99) mg/dL Plasma Lactic Acid Lisandro 0.7 (0.7-2.0) mmol/L Calcium (8.4-10.2) mg/dL Total Bilirubin (0.2-1.3) mg/dL AST (14-36) U/L ALT (4-34) U/L Alkaline Phosphatase (38-126) U/L Troponin I <0.012 (0.000-0.034) ng/mL NT-Pro-B Natriuret Pep pg/mL Total Protein (6.3-8.2) g/dL Albumin (3.5-5.0) g/dL Disposition <Madai Camara - Last Filed: 05/10/23 20:31> Is patient prescribed a controlled substance at d/c from ED?: Yes If prescribed controlled substance>3 days was MAPS reviewed?: Prescribed <3 Days Time of Disposition: 00:46 <Armond Navarro - Last Filed: 05/11/23 00:47> Clinical Impression: Pain in both feet Disposition: HOME SELF-CARE Condition: Good Instructions (If sedation given, give patient instructions): Hydrocodone/Acetaminophen (By mouth) Prescriptions: HYDROcodone/APAP 5-325MG [Rock 5-325] 1 tab PO Q6HR PRN 3 Days #12 tab PRN Reason: Severe Pain Referrals: Sherlyn Jacobo MD [Primary Care Provider] - 1-2 days
[2023-05-10 20:49] VITALS: RESP 18
--- NOTE | 2023-05-10 21:25 | XR ---
EXAMINATION TYPE: XR chest 2V DATE OF EXAM: 05/10/2023 COMPARISON: 11/06/2020 INDICATION: Left upper extremity swelling TECHNIQUE: Single frontal view of the chest is obtained. FINDINGS: The heart size is normal. The pulmonary vasculature is normal. No suspicious infiltrates are evident There is some prominence of the right and left pulmonary arteries. This is an interval change from co mparison. Consider additional workup for underlying mediastinal mass. IMPRESSION: 1. No acute pulmonary process. 2. Prominence of the pulmonary arteries and hilar regions bilaterally, unchanged from 2020. Consider additional workup.
[2023-05-10 23:13] LABS: Basophils % (A) 0 %; Eosinophils # (A) 0.1 k/uL (0-0.7); Eosinophils % (A) 2 %; HCT 34.8 % (34.0-46.0); HGB 12.4 gm/dL (11.4-16.0); Lymphocytes # (A) 1.8 k/uL (1.0-4.8); Lymphocytes % (A) 21 %; MCH 31.4 pg (25.0-35.0); MCHC 35.6 g/dL (31.0-37.0); Mean Platelet Volume 7.6; Monocytes # (A) 0.5 k/uL (0-1.0); Monocytes % (A) 5 %; Neutrophils # (A) 6.1 k/uL (1.3-7.7); Neutrophils % (A) 70 %; Platelet Count 251 k/uL (150-450); RBC 3.95 m/uL (3.80-5.40); RDW 13.2 % (11.5-15.5); WBC 8.7 k/uL (3.8-10.6)
--- NOTE | 2023-05-10 23:25 | US ---
EXAM: US Duplex Bilateral Lower Extremities Veins CLINICAL HISTORY: US Reason: swelling, pain TECHNIQUE: Real-time duplex ultrasound scan of the bilateral lower extremity veins integrating B-mode two-dimensional vascular structure, Doppler spectral analysis, color flow Doppler imaging and compression. COMPARISON: No relevant prior studies available. FINDINGS: Right deep veins: Unremarkable. No DVT in the right common femoral, femoral, proximal deep femoral or popliteal veins. The veins demonstrate normal color flow, are normally compressible, with normal phasic flow and/or augmentation response. Right superficial veins: Unremarkable. No thrombus in the visualized right great saphenous vein. Left deep veins: Unremarkable. No DVT in the left common femoral, femoral, proximal deep femoral or popliteal veins. The veins demonstrate normal color flow, are normally compressible, with normal phasic flow and/or augmentation response. Left superficial veins: Unremarkable. No thrombus in the visualized left great saphenous vein. Soft tissues: No acute findings. No popliteal cyst. IMPRESSION: Normal bilateral lower extremity duplex venous ultrasound.
[2023-05-10 23:26] LABS: INR 0.9 (<1.2); Partial Thromboplastin Time 24.1 sec (22.0-30.0); Prothrombin Time 10.2 sec (10.0-12.5)
[2023-05-10 23:35] LABS: ALT 20 U/L (4-34); AST 21 U/L (14-36); African American GFR (CKD) >90 (>60 ml/min/1.73 sqM); Albumin 4.4 g/dL (3.5-5.0); Alkaline Phosphatase 58 U/L (38-126); Anion Gap 12 mmol/L; Blood Urea Nitrogen 19 mg/dL (7-17); Calcium 9.6 mg/dL (8.4-10.2); Carbon Dioxide 27 mmol/L (22-30); Chloride 95 mmol/L (98-107); Glucose 98 mg/dL (74-99); Non-African American GFR(CKD) 89 (>60 ml/min/1.73 sqM); Sodium 134 mmol/L (137-145); Total Bilirubin 0.6 mg/dL (0.2-1.3); Total Protein 7.3 g/dL (6.3-8.2)
[2023-05-10 23:44] LABS: NT-Pro-B-Type Natriuretic Pept 44 pg/mL
--- NOTE | 2023-05-11 00:20 | XR ---
EXAM: XR Bilateral Feet Complete, 3 or More Views CLINICAL HISTORY: XR Reason: painful nodules TECHNIQUE: Frontal, lateral and oblique views of the bilateral feet. COMPARISON: No relevant prior studies available. FINDINGS: Bones/joints: Mild joint space narrowing and osteophytosis of the first metatarsophalangeal joint bilaterally. 2-3 mm enthesophyte seen at the Achilles tendon insertion site upon the calcaneus bilaterally. Slight osteophytosis of the talonavicular joint bilaterally. The midfoot alignment is normal bilaterally. No acute fracture or dislocation is identified. Soft tissues: Unremarkable. No radiopaque foreign body. IMPRESSION: Mild joint space narrowing and osteophytosis of the first metatarsophalangeal joint bilaterally. Consider osteoarthritis. No erosions are seen to indicate gout.
[2023-05-11 01:15] VITALS: BP 135/77; PULSE 75; TEMP 98
== END 2023-05-11 01:00 | disposition home or self-care (01) ==
LOC: EC 19:29
DX: M79.672 Pain in left foot (principal); M79.671 Pain in right foot; I10 Essential (primary) hypertension; E78.5 Hyperlipidemia, unspecified; Z88.5 Allergy status to narcotic agent; Z79.899 Other long term (current) drug therapy; Z91.018 Allergy to other foods; Z88.8 Allergy status to other drugs, medicaments and biological substances; Z88.1 Allergy status to other antibiotic agents; Z91.09 Other allergy status, other than to drugs and biological substances
CPT/HCPCS: 36415; 71046; 80053; 83605; 83880; 84484; 85025; 85610; 85730; 93005; 93970; 99284

== ENCOUNTER → 2023-05-16 | Outpatient (CLI) | payer BC ==
[2023-05-16 09:34] LABS: NT-Pro-B-Type Natriuretic Pept 21 pg/mL
[2023-05-17 02:40] LABS: BUN/Creat Ratio 18.12 Ratio (12.00-20.00); Blood Urea Nitrogen 14.5 mg/dL (9.0-27.0); Calcium 9.9 mg/dL (8.7-10.3); Carbon Dioxide 26.6 mmol/L (21.6-31.8); Chloride 95 mmol/L (96-109); Glucose 107 mg/dL (70-110); Potassium 4.2 mmol/L (3.5-5.5); Sodium 135 mmol/L (135-145)
== END | disposition home or self-care (01) ==
LOC: LABWHC1 07:46
PROVIDERS: ATTEND Internal Medicine Interventional Cardiology
DX: R60.0 Localized edema (principal)
CPT/HCPCS: 36415; 80048; 83880

== ENCOUNTER 2023-05-30 06:47 | Day surgery (SDC) | payer BC ==
--- NOTE | 2023-05-30 06:42 | P.HPOR ---
History of Present Illness H&P Date: 05/10/23 .D:Date: 05/10/23 : 10:37am .T:Title: [facility] History and Physical Date of :[birth year] [id number]: NKDA Age: 58 year Height: 5'2" Weight: 170 lbs BMI: 31.09 kg/m2 Occupation: [employer] VAS: 3 Hand:Right DOI:Chronic DOS: history of revision L5-S1 fusion with ROHINI on the left side in 2011 Duration of current treatment regiment: > 6 months CHIEF COMPLAINT: Re-check on low back pain following right SI joint injection TODAY'S VISIT: Today Ms. Izquierdo returns to the office today for a re-check on her low back pain following a right SI joint injection on 04/18/2023. The patient notes that the injection provided her with approximately 75% relief for 2 to 3 days. The patient has a second injection scheduled for 05/31/2023. Today, the patient reports experiencing continued diffuse low back pain with a burning quality that radiates down into the posterior aspect of the right lower extremity. She notes that her right leg pain is associated with numbness and tingling. The patient notes increased pain, redness, and swelling throughout the bilateral foot. She notes increased difficulty with walking over the last 3 to 4 days due to her worsening foot and right leg pain. The patient notes that her symptoms worsen with prolonged sitting and going up the stairs. She reports experiencing mild to moderate sleep disturbances related to her ongoing pain and associated symptoms. The patient has trialed other treatment modalities in the form of physical therapy, physician directed at home stretches/exercises, at home heat/ice therapies, activity modification, medication management, foster care case manager, and an L4-5 facet block, all with no significant or sustained relief of her symptoms. The patient is currently taking Motrin, Tylenol, and Flexeril with very minimal relief of her symptoms. The patient denies experiencing any f/c/sob or loss of bowel/bladder control. The patient ambulates independently today. HPI: Ms. Izquierdo returned to the office on 03/24/2023 regarding a re-check on her low back pain. The patient reports experiencing a continued ache-like, burning pain throughout the low back that radiates down into the right buttock and right lower extremity. The patient states that her right leg pain is associated with numbness and tingling. The patient notes that her symptoms are exacerbated by prolonged walking, sitting, standing, twisting, and when going up the stairs. The patient notes that her symptoms make it very difficult for her to complete many of her activities of daily living. The patient reports experiencing moderate to severe night time symptoms that wake her from sleep. The patient has prior history of undergoing surgical intervention in the form of a revision L5- S1 fusion with removal of hardware upon the left side in 2011. The patient is currently taking Tylenol ES and Motrin with very minimal relief. The patient has also trialed conservative measures in the form of physical therapy, at home stretches/exercises, an L4-5 facet block, at home heat/ice therapies, and activity modification. She notes no significant or sustained relief after trialing all above listed modalities. She notes that the L4-5 facet block exacerbated her symptoms. The patient denies trialing any other modalities at this time. Otherwise the patient denies any f/c/sob/cp, no incision concerns, no bladder or bowel retention/incontinence, no perineal numbness/tingling, and ambulates independently today. Ms. Izquierdo returns to the office on 12/29/2022 for a re-check on her low back pain. The patient notes continued diffuse low back pain with a burning and ache- like quality. The patient notes continued pain radiating down into the left lower extremity, associated with numbness and tingling. The patient states that she has recently completed a course of physical therapy, which she feels i ncreased strength and range of motion and decreased her pain. The patient has also trialed dry needling with improvement to her current symptoms. The patient notes that her continued symptoms are exacerbated by prolonged activity. The patient is having mild sleep disturbances at this time due to her ongoing symptoms. The patient is currently taking Baclofen, Tylenol ES, and Motrin with relief of pain. The patient denies trialing any other modalities at this time. Otherwise the patient denies any f/c/sob/cp, no incision concerns, no bladder or bowel retention/incontinence, no perineal numbness/tingling, and ambulates independently today. Ms. Izquierdo returns to the office on 09/08/2022 for a recheck of their low back and to review her CT Myelogram obtained after the time of the last appointment. Since the time of the last appointment the patient reports no changes to her symptoms. The patient continues to complain of aching, burning low back pain extending into the left lower extremity. Overall the patient has seen a progressive increase in symptoms since their onset. Ms. Izquierdo symptoms are exacerbated with prolonged standing and ambulation, due to this they notes that it is increasingly difficult for Ms. Izquierdo to complete many of their daily tasks. Patient is having severe sleep disturbances as well due to their ongoing pain and associated symptoms. Patient had L4-5 facet block injections that made her pain worse. The patient is currently in physical therapy with minimal relief. Regarding treatments, the patient has previously trialed all above mentioned treatment modalities without relief of her symptoms. Patient denies trialing any other modalities at this time. Otherwise the patient denies any f/c/sob/cp, no incision concerns, no bladder or bowel retention/incontinence, no perineal numbness/tingling, and ambulates independently. Ms. Izquierdo returns to the office on 04/20/2022 for a recheck of their low back and to review her CT Myelogram obtained after the time of the last appointment. Since the time of the last appointment the patient reports no changes to her symptoms. The patient continues to complain of aching, burning low back pain extending into the left lower extremity. Overall the patient has seen a progressive increase in symptoms since their onset. Ms. Izquierdo symptoms are exacerbated with prolonged standing and ambulation, due to this they notes that it is increasingly difficult for Ms. Izquierdo to complete many of their daily tasks. Patient is having severe sleep disturbances as well due to their ongoing pain and associated symptoms. Regarding treatments, the patient has previously trialed all abovementioned treatment modalities without relief of her symptoms. Patient denies trialing any other modalities at this time. Otherwise the patient denies any f/c/sob/cp, no incision concerns, no bladder or bowel retention/incontinence, no perineal numbness/tingling, and ambulates independently. Ms. Izquierdo last returned to the office on 03/23/2022 for a recheck of their low back. SInce the time of the last appointment the patient reports some modest improvements to her symptoms, namely her lower extremity weakness. Furthermore the patient does repot no changes to her back or radicular pain about the lower extremities. Overall the patient has seen a progressive increase in symptoms since their onset. Ms. Izquierdo symptoms are exacerbated with prolonged standing and ambulation, due to this they notes that it is increasingly difficult for Ms. Izquierdo to complete many of their daily tasks. Patient is having severe sleep disturbances as well due to their ongoing pain and associated symptoms. Regarding treatments, the patient has previously trialed all abovementioned modalities without relief of her pain but again has seen some mild improvements to her lower extremity weakness. Patient denies trialing any other modalities at this time. For their symptoms, the patient has been taking Motrin and Baclofen both without relief of her symptoms. Otherwise the patient denies any f/c/sob/cp, no incision concerns, no bladder or bowel retention/incontinence, no perineal numbness/tingling, and ambulates independently. Ms. Izquierdo was last seen on 02/15/2022 regarding their low back pain. Patient reports a aching, burning lumbar pain ongoing for 2 months with no known injury or trauma to indicate an exact onset of their symptoms. Of note the patient does have a history of a prior L5-S1 fusion done in 2011 with subsequent revision and removal of hardware after increased pain. In addition to their lumbar pain, they do report that it radiates into the left lower extremity, associated without numbness and tingling through the leg. Additionally the patient reports that her primary concern is not pain but bilateral lower extremity weakness that is significantly impacting her ability to stand for any length of time. Overall the patient has seen a progressive increase in symptoms since their onset. Ms. Izquierdo symptoms are exacerbated with standing and ambulation, due to this they notes that it is increasingly difficult for Ms. Izquierdo to complete many of their daily tasks. Patient is having moderate sleep disturbances as well due to their ongoing pain and associated symptoms. Regarding treatments, the patient has previously trialed home exercises which exacerbated her symptoms, ice and chiropractics with mild relief. Patient denies trialing any other modalities at this time. For their symptoms, the patient has been taking Baclofen QHS with mild relief and Motrin OTC without relief. She has previously trialed a medrol Dosepak without improvements. Otherwise the patient denies any f/c/sob/cp, no incision concerns, no bladder or bowel retention/incontinence, no perineal numbness/tingling, and ambulates independently. HISTORY: Imaging: No new xrays taken in office Trauma: No Work Related: No Activity Modification: Yes PT: Yes How many sessions? 12 Did it help? No Home Exercise: Yes, the patient has trialed the physician directed home exercise program without relief of their symptoms. Medications:Yes; List: Motrin, Tylenol, & Flexeril Alternative Interventions: Chiropractic:Yes, no relief Massage therapy:No R.I.C.E:Yes, no relief Brace:No Injections:Yes x1 right SI joint injection / x1 Facet block) How many? 2 Did they help? SI injection provided patient with 75% relief for 3 to 4 days. L4-5 facet block exacerbated patient' symptoms. RFA:No The patients' past social, medical, family, surgical history, as well as review of systems, have been reviewed. Please refer to the Neurosurgery History and Physical form that has been scanned in to our electronic medical record system. 16 points review of systems completed and as stated in HPI, all other systems reviewed are negative. Social History: Reviewed, see appropriate section of the chart for details. Family History: Reviewed, see appropriate section of the chart for details. P2 Past Medical History: Reviewed, see appropriate section of the chart for details. Current Medications: P1Rx: citalopram 20 mg tablet Ref: 0 Rx: olmesartan 40 mg-hydrochlorothiazide 25 mg tablet Ref: 0 Rx: Stool Softener Ref: 0 Rx: zolpidem 5 mg tablet Ref: 0 Rx: Tylenol Extra Strength 500 mg tablet Ref: 0 Rx: Multi Vitamin Ref: 0 Rx: Vitamin C Ref: 0 Rx: Vitamin D2 Ref: 0 Rx: cyclobenzaprine 10 mg tablet Ref: 0 Rx: Motrin Ref: 0 Rx: ketorolac 10 mg tablet Ref: 0 P1 PHYSICALEXAMINATION: General: Awake, alert, appropriate for age, in no acute distress. HEENT:No unusual neck masses around region of lateral neck triangle, thyroid, supraclavicular groove Heart: Regular rate and rhythm, normal S1, S2 and no murmur/gallop. Lungs:Clear to auscultation bilaterally with no use of accessory muscles. Extremities: Skin warm and dry without acute lesions, coloration, temperature, skin intact, no tenderness or erythema Integument: Hairy patches:ABSENT Dorsal skin dimples: ABSENT Cafe au lait spots:ABSENT Surgical incisions: Well healed lumbar incision Palpation: Please see Pain drawing on Intake sheet for further detail. Midline spinal tenderness: No E6 Cervical Tenderness: No E6 Paralumbar tenderness:Yes E6 Parathoracic tenderness:No E6 Buttocks tenderness:No E6 Sacroiliac Tenderness:Yes Right Compression + Right distraction - Right thigh thrust and FABER4+ Neg hip thrust POSTURAL and MUSCULO-SKELETAL EVALUATION: Coronal Balance: NEUTRAL Recumbent testing: Patient isable to lay flat on back Sagittal Balance:NEUTRAL Shoulder Profile:LEVEL Pelvic Girdle:LEVEL Neck ROM:UNRESTRICTED Lumbar ROM:RESTRICTED Shoulder ROM:Symmetrical Hip ROM:Symmetrical Knee ROM:Symmetrical Hands: Normal appearance, Symmetrical Feet:Normal appearance, Symmetrical VASCULAR STATUS : LEFT RIGHT Wrist Pulses INTACT INTACT Pedal Pulses (Dors. pedis & post.tibialis) INTACT INTACT Color NORMAL NORMAL Edema Absent Absent NEUROLOGIC EXAMINATION: Mental Status:Awake and alert, fully oriented, with normal attention, concentration and memory, and fluent, appropriate speech. Cranial Nerves: I: Olfactory not tested. II: Visual acuity normal, no visual field deficit noted with confrontation. III,IV: Normal pupillary reflexes & intact extraocular movements without nystagmus. V,: Intact symmetrical facial sensation. VII: Intact symmetrical facial motor movement VIII: Hearing intact. IX,X: Intact gag, swallow, & normal voice. XI: Sternocleidomastoid, trapezius function intact. XII: Tongue midline with normal movements. L'hermitte's Sign: Negative / absent Spurling'Sign:Absent bilaterally. Cubital percussion test:Absent bilaterally. Robin-Tinel sign - Carpal region:Absent bilaterally. Straight Leg Raising:Absent bilaterally. Crossed straight leg raise:negative O8 MOTOR EXAM (0-5/5, N/T) UPPER EXTREMITY Shoulder Abduction Biceps Triceps Wrist Extension Hand Intrinsics Metallurgist Process Right 5/5 5/5 5/5 5/5 5/5 5/5 Left 5/5 5/5 5/5 5/5 5/5 5/5 LOWER EXTREMITY Hip Flexion Knee Extension Knee Flexion DF PF EHL FHL Right 4+/5 4+/5 4+/5 4+/5 4+/5 4+/5 4+/5 Left 5/5 5/5 5/5 5/5 5/5 5/5 5/5 REFLEXES(0-4/2, NT)Upper ExtremityLower Extremity Right 2 2 Left 2 2 Pathological Reflexes RIGHT LEFT Robin's Absent Absent Clonus Absent Absent Babinski Absent Absent # Indicates mechanical impairment Muscle appearance: Symmetrical, without signs of atrophy or dystrophy. Sensory system (0-4, N/T) Test type RU DURAN RL LL Joint-Position 2 2 2 2 Vibration 2 2 2 2 Pain & LT sense 2 2 2 2 Dermatomal Deficit: None None L5-S1 None Gait and Functional Evaluation: Ambulatory aids:Independent Romberg's test:Intact bilaterally Toe heel walk / heel-toe walk intact while maintaining satisfactory balance?No Squatting/straightening w/o assistance to a min of 60 degree knee flexion? No Single leg stance:intact Trendelenburg sign negative bilaterally Hand and finger dexterity intact bilaterally?yes Disdiadochokinesis examination negative bilaterally? yes RADIOGRAPHIC STUDIES: No new x-rays completed in office today. Please see previous note. IMPRESSION: It was my pleasure to have seen and examined Jessica. I reviewed the patient's clinical syndrome, physical findings, and imaging studies during the appointment today. It is my impression that the patient has a diagnosis of. 1. Right SI joint osteoarthritis, severe 2. Bilateral foot pain I outlined the natural course history without intervention and various interventional options. PLAN: Based on my findings I suggest the following course of action: -Advised patient to continue with supplements, health maintenance, and home exercise programs. Patient expressed understanding and will continue with these modalities. - I have sent a prescription to the patient's pharmacy today for Toradol 10 mg. -I discussed treatment options with the patient, including operative and non- operative options, and they have elected to proceed with the following surgical procedure: Second right SI joint injection (scheduled for 05/31/2023) The indications, risks, benefits, and alternatives to surgery were discussed with the patient at length. Specifically (but not limited to) the risks of infection, stiffness, recurrence of symptoms, need for revision surgery, local numbness, neurovascular injury, and blood clots were discussed. The patient's questions were answered. The decision to proceed was made. Consent will be obtained for the procedure. - Ambulate daily - Take medications as directed - Ice and rest for pain and swelling control. - I have advised the patient to follow-up with a psychological assistant to discuss and evaluate her recent onset of bilateral foot pain, swelling, and redness. Spine Surgery Risk Review Ms. Izquierdo is presenting for evaluation of low back and right lower extremity pain, right lower extremity numbness and tingling. It was my pleasure to have seen and examined Ms. Izquierdo. In our visit today we have had a chance to go over subjective complaints, physical examination findings and treatments including the natural course history without intervention and various interventional options. The patients imaging demonstrates: XRay taken on 02/15/22 of Lumbar Spine and Pelvis: - Re-reviewed wit the patient in office today. Images reviwed today demonstrate post surgical changes at L5-S1 with unilateral right sided screws and minh with interbody cage from the right side. There is interval removal of hardware noted as well at the same level. The S1 screw shows fatigue and is likely broken at mid point. There is no listhesis. There is questionable anterior bone formation and complete fusion. There is no facet fusion noted at this time. No fractures noted. Trace anterior listhesis still p resent L5-S1. Mild retrolisthesis L4-5, compensatory. No lesions. CT myelogram reviewed at [facility] on 05/26/22: - Re-reviewed wit the patient in office today. This is reviewed and demonstrates post surgical changes at L5-S1 with right sided unilateral fixation. The S1 screw is fractured mid point and is likely loose. There is pseudoarthrosis noted at L5-S1 posteriorly, there is some bone formation anteriorly however. This is somewhat incomplete fusion. There is still grade I spondylolisthesis of this level. There is ASD of L4-5 noted with disc height collapse, facet arthropathy and central stenosis related to ligamental hypertrophy, scar tissue and arthropathy with overgrowth. No fractures noted. No lesions. On physical exam, Ms. Izquierdo demonstrates: A continued diffuse low back pain with a burning wuality that radiates down into the posterior aspect of the right lower extremity. She notes that her right leg pain is associated with numbness and tingling. The patient notes increased pain, redness, and swelling throughout the bilateral foot. She notes increased difficulty with walking over the last 3 to 4 days due to her worsening foot and right leg pain. The patient notes that her symptoms worsen with prolonged sitting and going up the stairs. She reports experiencing mild to moderate sleep disturbances related to her ongoing pain and associated symptoms. I have explained to the patient that as their condition progresses it will cause further neurological deficits and eventual paralysis. Based on the patients imaging, physical exam, and the rapid progression and disabling nature of their symptoms, at this time I recommend surgery in the form of a: Second right SI joint injection. I discussed the risk and benefits of this procedure at length with Ms. Izquierdo. The patient agreed to considered pursuing the procedure above mentioned. Prior to surgery, she should follow up with her PCP (Cardio, ID, IM etc) for clearance. Questions were invited and answered, and the patient wishes to proceed as outlined below. Currently, I am recommendin.Second right SI joint injection 2.Follow up with PCP for surgical clearance 3.Review of surgical risks and benefits as well as an educational packet on the proposed surgical procedure. Risks: All surgical procedures come with inherent risks, including those related to pos itioning, anesthesia, intraoperative findings, and postoperative complications. It is important to understand that surgery does not come with any guarantee of a successful outcome as complications and adverse events are always possible. The patient was given a handout in office today discussing the surgical procedure and risks associated with the intervention, both of which were discussed with the patient. These risks include but are not limited to the following: * Experiencing same, different or even worse symptoms in back, neck, arms, or legs compared to before surgery. Requiring further surgery or other forms of treatment presently or at some time in the future at same or other levels of the intended spine surgery. On an extreme but fortunately relatively rare basis severe complication such as blindness, stroke, heart attack, temporary and/or permanent nerve injury, paralysis, coma, or may occur, sometimes without known explanation. Surgical complications may include but are not limited to risk of infection, fluid accumulation in the surgical dissection site, including a seroma or hematoma, that requires additional surgery, wound drainage, bleeding, new numbness or weakness, vision changes/loss, spinal fluid leakage, non-healing and/or infected incision, headaches, difficulty or inability to swallow, hoarseness, hemopneumothorax, pneumothorax, impotence, retrograde ejaculation, vaginal dryness; injury to nerves, spinal cord, blood vessels, lymphatics or other vital organs (i.e., bowel injury, injury to the great vessels); heterotopic bone formation; complications related to the hardware such as screws, rods, cages including misplaced hardware, device failure, instrumentation at the wrong spine level, hardware fracture/breakage, or enriqueta dware loosening; vertebral failure of the spinal column above or below the newly placed hardware; retained surgical instrumentations or devices and the need for further surgery. * Medical risks of the planned spine surgery include but are not limited to generalized Infections to the whole body or local areas outside of the surgical site (sepsis), heart attack, bleeding, anaphylaxis, meningitis, seizure, epilepsy, hearing loss, burn ponce, laceration of the head or other areas of the body, bruising, hypersensitivity of the skin, bladder over distension; allergic reaction; shoulder injury related to positioning; fat, blood and air clots to other areas of the body like heart, lungs, brain; failure of internal organs such as lungs, kidneys, liver and excessive bleeding. If blood transfusions are necessary, note that transfusions may cause intolerance reactions such as anaphylaxis or other complex reactions. Despite best efforts, the results of spine surgery might not heal in terms of bone, soft tissues such as skin, fascia, ligaments, and joints. Additionally, in order to achieve best possible results, spine surgery may be carried out beyond the initially planned levels and involve decompression, fusion including insertion of hardware at levels other than the original intended area of surgical interest change some portions of the procedure in order to ensure the best possible outcomes. With spine surgery and spinal fusion, there are different off label uses of instrumentation (devices, implants and hardware) as well as biological substances (bone morphogenic proteins, demineralized bone matrix) as well as using extra bone from allograft sources (i.e. cadaver bone) or autograft (iliac crest bone, ribs, or the spine itself). The patient has been given information about these practices and their inherent risks and benefits. [facility] is an educational center that serves as a training facility for neurosurgical and orthopedic PLANT TECHNICIAN/CONTROL ROOM OPERATOR and Nursing students. Physician assistants are medically trained surgical providers who function in the outpatient, inpatient, and operating room setting under the direct supervision of the attending surgeon. [facility] has multiple operating rooms with single and overlapping rooms running daily. They currently function under the required guidelines as produced by the [facility] with regards to the overlapping rooms and will continue to comply with changes to this policy as they occur. The requirements include and are complied with as follows: (1) the critical portions of the overlapping rooms will not occur at the same time, (2) the attending physician will be physically present during the critical portions of the procedure and immediately available during the entire case, and (3) a back-up attending is designated should the primary attending not be immediately available. The patient has had a chance to review all the listed information, has been given print outs detailing this information, and has had all his/her questions answered to their satisfaction. It was my pleasure to have seen and examined Ms. Izquierdo. In our visit today we have had a chance to go over my understanding of our patient's current condition, the natural course history without intervention and various interventional options. Questions were invited and answered, and the patient wishes to proceed as outlined above. I have seen and examined the patient for 25 minutes and we have spent more than 50% of the time in repeat and detailed counseling about the patient's condition, its natural course history with out and as much as can be predicted with surgery and re-review of various surgical treatment options. In conclusion, Ms. Izquierdo requested we proceed with the above suggested surgery and are willing to accept risks and limitations of the suggested surgery as nature of the disease process and our best attempts at treatment for the condition. Thank you again for allowing us to be part of your patient's care. Please don't hesitate to contact me if you have any further questions. Follow-up: 2 weeks after second right SI joint injection Patient Education: (Informational booklet, instructions, etc) given at today's appointment: Yes .ED:Patient Education: Y Medications Reviewed: YES In our visit today Ms. Izquierdo and I have had a chance to go over my understanding of the patient's current condition, the natural course history without intervention and various interventional options. Questions were invited and answered, and the patient wishes to proceed as outlined above. I will be sure to keep you updated afterMs. Izquierdo returns here for further follow-up. Thank you again for your referral. Please do not hesitate to contact me if you have any further questions. Signed and authenticated by: Gutierrez Nash [facility] [address] [facility], [address] [address] This message is confidential, intended only for the named recipient(s) and may contain information that is privileged or exempt from disclosure under applicable law. If you are not the intended recipient(s), you are notified that the dissemination, distribution or copying of this information is strictly prohibited. If you received this message in error, please notify the sender then delete this message. Patient verbalizes understanding of the information discussed. The above note was initiated by Mimi Beltran, physician recording press operator assistant for Dr. Gutierrez Yoo. This note has been reviewed by Dr. Yoo, who has made his personal changes and impressions for this document. CC: Sherlyn Jacobo M.D. Rx: ketorolac 10 mg tablet, 10, Ref: 0, take 1 tablet (10 mg) by oral route 2 times per day # SIGNED BY Gutierrez Yoo (GOO)05/19/2023 07:59AM Past Medical History Past Medical History: Hyperlipidemia, Hypertension Additional Past Medical History / Comment(s): aortic aneurysm, back pain History of Any Multi-Drug Resistant Organisms: None Reported Past Surgical History: Back Surgery, Section, Cholecystectomy, Heart Catheterization, Hysterectomy Additional Past Surgical History / Comment(s): colonoscopy, back surgery x2. spinal injections x6 Past Anesthesia/Blood Transfusion Reactions: No Reported Reaction Smoking Status: Never smoker Medications and Allergies Home Medications Medication Instructions Recorded Confirmed Type Citalopram Hydrobromide [CeleXA] 20 mg PO DAILY 04/06/20 05/24/23 History Rosuvastatin Calcium [Crestor] 5 mg PO HS 04/06/20 05/24/23 History Zolpidem [Ambien] 5 mg PO HS PRN 04/06/20 05/24/23 History Docusate [Colace] 100 mg PO DAILY 11/06/20 05/24/23 History Multivitamins, Thera [Multivitamin 1 tab PO DAILY 11/06/20 05/24/23 History (formulary)] Olmesartan/Hydrochlorothiazide 1 tab PO DAILY 11/06/20 05/24/23 History [Benicar Hct 40-25 mg Tablet] Allergies Allergy/AdvReac Type Severity Reaction Status Date / Time apple Allergy Anaphylaxis Verified 05/24/23 15:46 bacitracin Allergy Rash/Hives Verified 05/24/23 15:46 [From Neosporin ([id number])] lanolin Allergy Rash/Hives Verified 05/24/23 15:46 neomycin Allergy Rash/Hives Verified 05/24/23 15:46 [From Neosporin ([id number])] pear Allergy Anaphylaxis Verified 05/24/23 15:46 polymyxin B Allergy Rash/Hives Verified 05/24/23 15:46 [From Neosporin ([id number])] adhesive tape AdvReac skin welts Verified 05/24/23 15:46 hydromorphone [From Dilaudid] AdvReac severe Verified 05/24/23 15:46 headache Physical Examination Osteopathic Statement: *. No significant issues noted on an osteopathic structural exam other than those noted in the History and Physical/Consult.
[~2023-05-30 06:47] MED LIST changes: +LACTATED RINGERS 1,000 ML IV SCH
[2023-05-30] MEDS ORDERED: fentaNYL (PF) 50 MCG/ML 2 ML AMP IV PRN (07:00)
[2023-05-30 07:30] VITALS: PULSE 76; TEMP 97.1
[2023-05-30] MEDS ORDERED: LIDOCAINE 2%-EPI 1:100,000 20 ML VIAL SQ ONE (07:35)
[2023-05-30] MEDS ORDERED: BUPIVACAINE (PF) 0.5% 30 ML VIAL SQ ONE (07:35)
[2023-05-30] MEDS ORDERED: methylPREDNISolone ACETATE 40 MG/ML 1 ML VIAL INTRAARTIC ONE (07:36)
[2023-05-30] MEDS ORDERED: IOPAMIDOL-370 50ML BTL MISCELLANE ONE (07:36)
--- NOTE | 2023-05-30 07:54 | P.OP ---
Date of Procedure: 05/30/23 Description of Procedure: PROCEDURE NOTE Date of Procedure: [May 30, 2023] Preprocedure Diagnosis: 1. RIGHT SIJ OA severe 2. low back pain Postprocedure Diagnosis: 1. RIGHT SIJ OA severe 2. low back pain Procedure(s) Performed: 1 RIGHT SIJ injection under fluoroscopic guidance Implants: None Anesthesia: Local Surgeon: Gutierrez Yoo Estimated Blood Loss (ml): 1 IV fluids (ml): 0 Urine output (ml): 0 Pathology: none sent Condition: stable Disposition: Stable home Indications for Procedure: The patient is presenting for evaluation of RIGHT SI joint pain. It was my pleasure to have seen and examined [PATIENT] today. Today we have had a chance to go over subjective complaints, physical examination findings and treatments including the natural course history without intervention and various interventional options. The patients imaging demonstrates: [No evidence of spinal pathology on imaging that would account for his symptoms. They have no hip OA that is visible to account for symptoms. There is b/l SIJ sclerosis noted on pelvis films. There is no evidence of any infectious process within the SIJ b/l. No lesions. No fractures.] On the physical exam, Jessica demonstrates: Patient reports pain across the buttocks and around the hip region. Continued pain down the outside of the right leg I have explained to the patient that as their condition progresses it will cause further pain, continued debility or even progressive pain and issues. Based on the patients imaging, physical exam, and the rapid progression and disabling nature of their symptoms, at this time I recommend surgery in the form of: RIGHT SI joint injection I discussed the risk and benefits of this procedure at length with Jessica. The patient agreed to consider pursuing the procedure above mentioned. Questions were invited and answered, and the patient wishes to proceed as outlined below. Currently, I am recommendin. RIGHT SI joint injection Description of Procedure: RIGHT SIJ injection The patient was seen and examined in their room. All protocols were followed. Informed consent was obtained, risks and benefits of the procedure were discussed at length. Risks including bleeding infection damage to the surrounding tissue and risk of reoperation were discussed with the patient. Risk of anesthesia up to and including was discussed with the patient. These are outlined in the risk review. They were willing to accept these risks and all of the risks of the procedure. The site was marked, the patient was willing to proceed with the procedure. The patient was transferred to the injection table. The Site was localized with Ultrasound and marked. Timeout was performed and all parties in agreement with procedure. The patient was then prepped and draped in a normal sterile fashion. Local anesthetic in the form of 2% lidocaine with epi 5cc and .25% marcaine w/o epi 5cc was placed into each injection site and allowed to work. Ultrasound was then used again to localize the SIJ. Picture was captured. RIGHT SI joints which were then accessed with a 18-gauge needle. US confirmed joint. Once this was confirmed 40 of dexamethasone along with a mixture of lidocaine and Marcaine 2.5cc each were injected into the SI joint. Patient remained stable the entire time without any radicular symptoms during the injection phase. The needles were withdrawn and the area cleaned and Band-Aids placed. The patient then sat up slowly and was stable. They were road tested and were comfortable and stable to go home with family members who accompanied them.
[2023-05-30 07:57] VITALS: BP 127/69; RESP 17
--- NOTE | 2023-05-30 08:42 | FL ---
EXAMINATION TYPE: FL guidance operating room DATE OF EXAM: 05/30/2023 Comparison: None Clinical History: 58-year-old female procedural fluoroscopy, SI Inj Findings: DAP 61.67 mGycm2. FL TIME 1 MIN 0 images provided SI JOINT WITH DOCTOR VARGAS IMPRESSION: Intraoperative fluoroscopy as above.
== END 2023-05-30 08:25 | disposition home or self-care (01) ==
LOC: OR 06:47
PROVIDERS: ATTEND Orthopaedic Surgery
DX: M46.1 Sacroiliitis, not elsewhere classified (principal); E78.5 Hyperlipidemia, unspecified; G47.00 Insomnia, unspecified; I10 Essential (primary) hypertension; Z79.899 Other long term (current) drug therapy; Z88.5 Allergy status to narcotic agent; Z98.1 Arthrodesis status
CPT/HCPCS: 27096; J1030; Q9967; J0665

== ENCOUNTER → 2023-07-25 | Outpatient (CLI) | payer BC ==
--- NOTE | 2023-07-26 20:00 | MM ---
Reason for Exam: Screening (asymptomatic). Last mammogram was performed 1 year(s) and 1 month(s) ago. Patient History: Menarche at age 8. First Full-Term at age 26. Left ovary removed at age 30. Right ovary removed at age 30. Hysterectomy at age 30. Postmenopausal. Estrogen for 13 years from age 30 until age 43. 04/30/1999, Benign Excisional Biopsy on the left side. Risk Values: Sarika 5 year model risk: 2.1%. NCI Lifetime model risk: 10.4%. Prior Study Comparison: 02/18/2020 Bilateral Screening Mammogram, [facility]. 06/11/2021 Bilateral Screening Mammogram, [facility]. 06/24/2022 Bilateral MG 3D screening mammo w/cad, [facility]. Tissue Density: There are scattered fibroglandular densities. Findings: Analyzed By CAD. There is no suspicious group of microcalcifications or new suspicious mass in either breast. Overall Assessment: Negative, BI-RAD 1 Management: Screening Mammogram of both breasts in 1 year. . Patient should continue monthly self-breast exams. A clinical breast exam by your physician is recommended on an annual basis. This exam should not preclude additional follow-up of suspicious palpable abnormalities. Note on Sarika scores and lifetime risk: 1. A Sarika score greater than 3% is considered moderate risk. If this is the case, consider specialist referral to assess eligibility for a risk reducing agent. 2. If overall lifetime risk for the development of breast cancer is 20% or higher, the patient may qualify for future screening with alternating mammogram and breast MRI. Electronically signed and approved by: Lisa Latham M.D. Radiologist
== END | disposition home or self-care (01) ==
LOC: RADMAMWWP 16:36
PROVIDERS: ATTEND Internal Medicine
DX: Z12.31 Encounter for screening mammogram for malignant neoplasm of breast (principal); Z78.0 Asymptomatic menopausal state
CPT/HCPCS: 77063; 77067

== ENCOUNTER → 2023-12-27 | Outpatient (CLI) | payer BC ==
--- NOTE | 2023-12-27 12:50 | CT ---
CTA CHEST EXAMINATION TYPE: CT angio chest DATE OF EXAM: 12/27/2023 INDICATION: thoracic aortic aneurysm CT DLP: 827 mGycm, Automated exposure control for dose reduction was used. CONTRAST: Patient injected with 100 mL of Isovue 370. COMPARISON: 12/12/2022 TECHNIQUE: CT of the chest is performed on a spiral scan at 2 mm thick sections. Study is performed with intravenous contrast timed for evaluation for thoracic aneurysm. This will limit additional por tions of the evaluation. FINDINGS: Thoracic aorta: Aortic root measures 4.1 cm. Ascending thoracic aorta at the level of the vein pulmon seth artery is 4.1 cm. Transverse aortic arch measures 2.6 cm. Thoracic aorta at the diaphragm measure s 2.2 cm. There is a three-vessel arch. Celiac axis and superior mesenteric artery and bilateral erin l arteries appear normal No mediastinal or hilar adenopathy enlarged by CT criteria is evident. The ascending aorta diameter at the level of the main pulmonary artery is 4.1 cm. The main pulmonary artery diameter at the bifurcation is 2.1 cm. Lung windows are clear. Limited CT sections were through the upper abdomen. There is a cyst within the liver. Gallbladder roy rgically absent IMPRESSION: 1. Aortic aneurysmal aortic root and ascending thoracic aorta measuring 4.1 cm. This is similar to c omparison.
== END | disposition home or self-care (01) ==
LOC: RADCTMAIN 11:10
PROVIDERS: ATTEND Internal Medicine Interventional Cardiology
DX: I71.21 Aneurysm of the ascending aorta, without rupture (principal); I71.20 Thoracic aortic aneurysm, without rupture, unspecified
CPT/HCPCS: 71275; Q9967

== ENCOUNTER → 2024-01-12 | Outpatient (CLI) | payer BC ==
--- NOTE | 2024-01-12 16:40 | US ---
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 Cholec ystectomy TECHNIQUE: Multiple sonographic images of the right upper quadrant are obtained. FINDINGS: EXAM MEASUREMENTS: Liver Length: 14.8 cm Gallbladder Wall: Surgically absent CBD: 1.0 cm Right Kidney: 11.8 x 5.6 x 4.8 cm Pancreas: Obscured by bowel gas Liver: cyst left lobe = 1.0cm. complex cyst right lobe = 2.6 x 2.8 x 2.1cm Gallbladder: Surgically absent CBD: appears wnl Right Kidney: anechoic area upper pole = 1.8 x 2.1 x 1.9cm Pancreas is obscured by overlying bowel gas. Gallbladder is surgically absent. Common bile duct is wi thin normal limits for post cholecystectomy. No hydronephrosis or nephrolithiasis involving the right kidney. Simple thin-walled 2.1 cm cyst within the upper pole of the right kidney. Noncirrhotic morph ology. Simple thin-walled cyst identified within the left hepatic lobe measuring 1 cm. Minimally comp gunnar 2.8 cm cyst with thin septations identified within the right hepatic lobe. IMPRESSION: 1. No ultrasound evidence for an acute process. 2. Minimally complex right hepatic lobe cyst with thin septations. Additional simple left hepatic lob e cyst. 3. Post cholecystectomy changes. 4. Simple right renal cyst.
== END | disposition home or self-care (01) ==
LOC: RADUSWWP 09:23
PROVIDERS: ATTEND Internal Medicine
DX: K76.89 Other specified diseases of liver (principal); N28.1 Cyst of kidney, acquired; Z90.49 Acquired absence of other specified parts of digestive tract
CPT/HCPCS: 76705

== ENCOUNTER → 2024-04-24 | Outpatient (CLI) | payer BC ==
--- NOTE | 2024-04-26 08:06 | MR ---
EXAMINATION TYPE: MR lumbar spine wo con DATE OF EXAM: 04/24/2024 8:07 PM CLINICAL INDICATION: Female, 59 years old with history of M54.50, M47.816 SPONDYLOSIS; PHH, Low back pain into both sides, Hx L5/S1 fusion 2011, left side hardware removed 2 weeks after surgery COMPARISON: 01/26/2022 TECHNIQUE: Multi planar, multi sequence imaging was performed utilizing: T1-weighted, T2-weighted, a nd turbo inversion recovery imaging of the lumbar spine. IV Contrast: cc . (None if empty) FINDINGS: Alignment: The lumbar vertebral bodies have preserved heights with grade 1 anterolisthesis of L5 on S 1. Cord: The conus medullaris and the distal spinal cord appear unremarkable with regards to their signa l intensity and morphology. Bones/Discs: Fixation hardware at the L5 and S1 vertebral body levels. Mild degeneration changes thro ughout the spine with osteophyte formation and facet joint arthropathy. Intervertebral disc signal is maintained. No abnormal inversion recovery signal to suggest bony edema. Perineural high T2 cyst karan suring 16 mm at the level S2 On the right. T12-L1: No evidence of significant spinal canal stenosis or neural foraminal stenosis. L1-L2: No evidence of significant spinal canal stenosis or neural foraminal stenosis. L2-L3: Disc bulge and facet joint arthropathy result in mild spinal canal and mild bilateral neural f oraminal stenosis. L3-L4: Disc bulge and facet joint arthropathy result in mild spinal canal and mild bilateral neural f oraminal stenosis. L4-L5: Disc bulge and facet joint arthropathy result in mild spinal canal and moderate to severe left and moderate right. Neural foraminal stenosis. L5-S1: The disc has a rounded posterior morphology without significant spinal canal stenosis. Facet j oint arthropathy with severe right and mild left bilateral neural foraminal stenosis. No significant spinal canal or neural foraminal stenosis in the remainder of the visualized levels. Other findings: None. IMPRESSION: 1. No definitive evidence of disc herniation or significant spinal canal stenosis. 2. Postsurgical changes degeneration and severe right L5-S1 and moderate to severe left L4-L5 neural foraminal stenosis. Stenosis has progressed from prior in 2021. [facility], , 04/26/2024 8:04 AM
== END | disposition home or self-care (01) ==
LOC: RADMRIMAIN 18:46
PROVIDERS: ATTEND Orthopaedic Surgery
CPT/HCPCS: 72148

== ENCOUNTER → 2024-05-22 | Outpatient (CLI) | payer BC | END | disposition home or self-care (01) | LOC: LABPAT 09:20 | PROVIDERS: ATTEND Orthopaedic Surgery | DX: Z01.812 Encounter for preprocedural laboratory examination (principal); M43.16 Spondylolisthesis, lumbar region; Z22.322 Carrier or suspected carrier of Methicillin resistant Staphylococcus aureus | CPT/HCPCS: 86850; 86900; 86901; 87070 ==

== ENCOUNTER 2024-05-30 09:32 | Day surgery (SDC) | payer BC ==
--- NOTE | 2024-05-30 07:14 | P.HPOR ---
History of Present Illness H&P Date: 05/22/24 .D:Date: 05/22/24 : 01:49pm .T:Title: RECHECK/PRE-OP H1 [facility] [address] [place] [address] [facility] [place] [address]| DO ASA GUTIERREZ, MSN, ACCREDITED PHARMACY TECHNICIAN-C CLINICAL SUMMARY: 59-year-old female with history of prior L5-S1 fusion presents with progressive severe low back pain (VAS 8/10) and bilateral lower extremity symptoms, worse on the left. Patient demonstrates significant functional decline with inability to perform toe/heel walk and single-leg stance, along with neurological deficits including 4/5 strength in hip flexion and ankle movements bilaterally, 3/4 strength in EHL/FHL, decreased reflexes (1+ patellar and Achilles on right), and L4-S1 dermatomal deficits bilaterally. Imaging reveals Grade I spondylolisthesis at L4-5 with moderate to severe central and foraminal stenosis, as well as L5-S1 pseudoarthrosis with broken S1 screw and hardware loosening. Conservative management including physical therapy (two rounds of 12 sessions), medications (including Gabapentin), intensive care unit registered nurse, and epidural injections have failed to provide sustained relief. Patient reports worsening instability, sharp pain with extension and twisting movements, and progressive neurological symptoms including bilateral lower extremity radiculopathy. She has been scheduled for Revision L4-S1 Posterolateral and Interbody Fusion with Hardware Removal. DEMOGRAPHICS: Age: 59 year Height: 5'2" Weight: 165 lbs BP:/ BMI: 30.18 kg/m2 Occupation: N/A CC: Low back pain, LE weakness and pain * VAS: 8 HISTORY: Ms. Izquierdo presents to the office today, 05/22/24, for a preoperative evaluation preceding her Revision L4-S1 Posterolateral and Interbody Fusion with Hardware Removal. She states she continues to have issues with her low back and her legs that is progressively getting worse. She has done PT, HEP, Medications OTC and Rx as well as massage, chiropractics without lasting relief. We have trialed her with Tens units OTC as well as heat and ice none of which alleviate her sx long-term. She states an unstable feeling in her back and she states a sharp pain when she is leaning backwards or twisting. She states her legs are getting worse and the tingling and numbness has progressed now. She has pain that shoots down her LLE to her foot and she is now starting to get this on her RLE as well. She denies any trauma to the area. H8 Patient denies any f/c/sob/cp, perineal numbness or tingling, bowel, or bladder incontinence/retention. Patient is ambulatory with difficulty due to pain and weakness. P1 The patients past social, medical, family, surgical history, as well as review of systems, have been reviewed. Please refer to the History and Physical form that has been scanned into our electronic medical record system. R0 16 points review of systems completed and as stated in HPI, all other systems reviewed are negative. PAST TREATMENTS: PAST IMAGING: YES -MRI, CT, XRAY TRAUMA RELATED: NO - WORK RELATED: NO - PT IN LAST 6 MONTHS: YES -two rounds 12 sessions each, no significant improvement PHYSICIAN DIRECTED HOME EXERCISE PROGRAM: YES -at first mild improvement, now none ACTIVITY MODIFICATION: YES -limited to 20 lbs. Cannot work MEDICATIONS: YES -Prednisone, Medrol, Toradol, motrin, Tylenol, Gabapentin. Some relief with saad from pain but numbness/tingling worsening ALTERNATIVE INTERVENTIONS (CHIROPRACTIC, ACUPUNCTURE, MASSAGE, RICE): YES -Chrio, massage no lasting relief BRACING: NO - INJECTIONS (MARGY, TF, RFA): YES -MARGY which made her worse and she will not do again she states. MEDICAL HISTORY: Past Medical History: REVIEWED STATED IN CHART Past Surgical History: REVIEWED STATED IN CHART Previus hx of L5-S1 fusion with interval removal of hardware and screw breakage on contralateral side. Social History: REVIEWED STATED IN CHART SMOKING: Never smoker ETOH: None SUBSTANCES: None Family History: REVIEWED STATED IN CHART P1 Current Medications: Rx: citalopram 20 mg tablet Ref: 0 Instructions: take 1 tablet (20 mg) by oral route once daily Rx: olmesartan 40 mg-hydrochlorothiazide 25 mg tablet Ref: 0 Instructions: take 1 tablet by oral route once daily Rx: Stool Softener Ref: 0 Rx: zolpidem 5 mg tablet Ref: 0 Instructions: take 1 tablet (5 mg) PRN by oral route once daily at bedtime Rx: Tylenol Extra Strength 500 mg tablet Ref: 0 Instructions: take 2 tablets (1,000 mg) by oral route every 4 hours as needed not to exceed 8 tablets per 24hrs Rx: Multi Vitamin Ref: 0 Rx: Motrin Ref: 0 Instructions: as needed Rx: Calcium 600 + D(3) 600 mg-5 mcg (200 unit) tablet Ref: 0 Rx: cyclobenzaprine 10 mg tablet Ref: 0 Instructions: take 1 tablet (10 mg) by oral route 3 times per day P1 PHYSICAL EXAM: General: AOX3, NAD, Well hydrate, well nourished HEENT: No lumps or masses Extremities: No color changes, no pooling INTEGUMENT: Appearance: Normal color and turgor Surgical Incisions: well healed posterior midline lumbar Hairy Patches: ABSENT Dorsal Skin Dimples: Normal [employer] spots: ABSENT PALPATION: TTP Midline: YEs Paracervical: NO Parathoracic: NO Paralumbar: YES SIJ TESTING: TESTED * [place] Finger: POS RIGHT * FABER4: POS b/l * Compression: POS RIGHT * Distraction: NEG * Thigh thrust: NEG * Hip thrust: POS RIGHT POSTURAL BALANCE: Coronal: BALANCED Sagittal: BALANCED Shoulder height: LEVEL Pelvic Girdle: LEVEL ROM AND APPEARANCE: Neck: UNRESTRICTED Lumbar: RESTRICTED with pain Shoulders: Symmetrical Hips: Symmetrical Knees: Symmetrical Hands: Symmetrical Feet: Symmetrical VASCULAR STATUS: PALPABLE PULSES B/L UE AND LE 2/4 RAD/ULNAR/DP/PT Edema: NONE NEUROLOGICAL EXAMINATION: Mental Status: Awake, alert, fully oriented with normal attention, concentration, and memory. Fluent appropriate speech. CRANIAL NERVES: I: Olfactory not assessed. II: Visual acuity normal, no visual field deficit noted with confrontation. III, IV: Normal pupillary reflexes & intact extraocular movements without nystagmus. V, : Intact symmetrical facial sensation. VII: Intact symmetrical facial motor movement: Hearing intact. IX, X: Intact gag, swallow, & normal voice. XI: Sternocleidomastoid, trapezius function intact. XII: Tongue midline with normal movements. TENSIONING: * L'HERMITTE'S SIG:NEG SPURLUNG'S SIGN:NEG CUBITAL TUNNEL COMPRESSION:NEG TINELS AT WRIST:NEG STRAIGH LEG RAISE:POS b/l CONTRALATERAL STRAIGHT LEG RAISE: NEG MOTOR EXAM (0-5/5, NT) Muscle appearance: Symmetrical, without signs of atrophy or dystrophy UPPER EXTREMITY RIGHT LEFT Shoulder Abduction 5 5 Biceps 5 5 Triceps 5 5 Wrist Extension 5 5 Hand Intrinsics 5 5 No Bake Molder 5 5 LOWER EXTREMITY RIGHT LEFT Hip Flexion 4 4 Knee Extension 5 5 Knee Flexion 5 5 Dorsiflexion 4 4 Plantarflexion 4 4 EHL 3 4 FHL 3 4 REFLEXES (0-4/2, NT): RIGHT LEFT Bicep 2 2 Brachioradialis 2 2 Triceps 2 2 Patellar 1 2 Achilles 1 2 PATHOLOGICAL REFLEXES: RIGHT LEFT AGRAWAL'S ABSENT ABSENT CLONUS ABSENT ABSENT BABINSKI ABSENT ABSENT RECTAL TONE: INTACT/NT SENSATION (0-4, NT): Sensation intact to LT and Pain * C5-T1 distribution BUE * L2-S2 distribution BLE *Exceptions below* DERMATOMAL DEFICIT/RADICULAR PATTERN: L4-S1 b/l LE worse on LEFT GAIT AND FUNCTIONAL EVALUATION: AMBULATORY AID None ROMBERG'S TEST INTACT HAND AND FINGER DEXTERITY INTACT YES DYSDIADOCHOKINESIA EXAM NEG B/L YES TOE/HEEL WALK INTACT WITH GOOD BALANCE NOS SQUAT AND RISE W/O ASSISTANCE TO 60 DEG KNEE FLEXION NO SINGLE LEG STANCE NOT INTACT TRENDELENBURG NT IMAGING: The imaging studies collectively demonstrate significant spinal pathology, primarily centered around the lower lumbar and lumbosacral regions. The patient presents with a grade 1 spondylolisthesis at L4-L5, accompanied by spondylosis at L5-S1. There is evidence of failed previous surgical intervention, as indicated by the pseudoarthrosis at L5-S1 and the presence of a broken S1 screw with associated hardware loosening. The spinal canal shows moderate to severe stenosis extending from L4 to S1, affecting both the central canal and bilateral neural foramina. These findings suggest a complex case that will require careful consideration for revision surgery and comprehensive rehab strategies. MRI Date: Location: [facility] Region: Lumbar Contrast: N IMAGES ARE REVIEWED WITH THE PATIENT IN OFFICE AND DEMONSTRATE THE FOLLOWING: FINDINGS: Redemonstration of the spondylolisthesis at L4-5 that is Grade I and partially reduced on supine film. There is central and b/l foraminal stenosis that is moderate to severe at this level due to ASD, overgrowth of facets and ligamentum and disc herniation. There is moderate central and foraminal stenosis at L5-S1 with pseudo arthrosis, broken S1 screw as well as loosening around the screw. There are no fractures noted. No lesions noted. Boggy facets noted L3-S1. Facet arthrosis is severe L4-5. IMPRESSION: It was my pleasure to have seen and examined Jessica. I reviewed the patient's clinical syndrome, physical findings, and imaging studies during the appointment today. It is my impression that the patient has a diagnosis of. 1.ASD L4-5 WITH GRADE I SPONDYLOLISTHESIS, UNSTABLE WITH RADICULOPATHY 2.L5-S1 PSEUDOARTHROSIS WITH BROKEN S1 SCREW 3.L4-S1 STENOSIS WITH NEUROGENIC CLAUDICATION 4. FACET ARTHROSIS 5. LOW BACK PAIN 6. LE PARESTHESIAS, PROGRESSIVE PLAN: Discussion: Revision L4-S1 Posterolateral and Interbody Fusion with Hardware Removal Patient Presentation: The patient is a 59 yo female presenting with persistent lower back pain and radicular symptoms. Previous imaging studies and clinical examination have revealed: - L5-S1 pseudoarthrosis - L4-5 Grade I spondylolisthesis - Moderate to severe stenosis at L4-5 Proposed Procedure: We are recommending a revision surgery involving: - Revision L4-S1 posterolateral fusion - Interbody fusion at L4-L5 and L5-S1 - Hardware removal at L5-S1 Rationale for Surgery: The primary goals of this procedure are to: - Address the failed fusion (pseudoarthrosis) at L5-S1 - Stabilize the L4-5 spondylolisthesis - Decompress the spinal canal to alleviate stenosis symptoms Surgical Approach and Technique: The procedure will involve: - Posterior approach to the lumbar spine - Careful dissection and exposure of the previous surgical site - Removal of existing hardware at L5-S1 - Decompression of the spinal canal at L4-5 - Placement of interbody cages at L4-5 and possibly L5-S1 - Application of new instrumentation for L4-S1 fusion Potential Risks and Complications As with any surgical procedure, there are risks involved. These include, but are not limited to: - Infection - Bleeding - Nerve injury - Dural tear - Failure of fusion - Hardware complications - Persistent or worsening pain - Need for further surgery Expected Outcomes and Recovery Post-operative expectations include: - Initial increase in pain, gradually improving over weeks to months - Hospital stay of 2-4 days - Gradual return to activities over 3-6 months - Physical therapy to begin approximately 6 weeks post-surgery - Full recovery may take up to 12 months Alternative Treatment Options We have considered and trialed alternative treatments, including: - Continued conservative management (physical therapy, pain management) - Epidural steroid injections - Medications OTC and Rx Patient Questions and Concerns Address any specific questions or concerns the patient may have, such as: - Expected pain relief and functional improvement - Potential impact on daily activities and work - Long-term prognosis Informed Consent Confirm that the patient understands: - The nature of the procedure - The reasons for recommending this surgery - The potential risks and benefits - Alternative treatment options Post-operative Care and Follow-up Discuss the post-operative care plan, including: - Pain management strategy - Wound care instructions - Activity restrictions - Follow-up appointment schedule - Signs and symptoms that should prompt immediate medical attention By thoroughly discussing these points, we aim to ensure that the patient is well-informed about the proposed revision L4-S1 posterolateral and interbody fusion with hardware removal, and can make an educated decision about proceeding with the surgery. FOLLOW UP: POST-OP PLAN AT NEXT VISIT: RECHECK AND PATIENT EDUCATION: Medications Reviewed: YES In our visit today Ms. Izquierdo and I have had a chance to go over my understanding of the patient's current condition, the natural course history without intervention and various interventional options. Questions were invited and answered, and the patient wishes to proceed as outlined above. I will be sure to keep you updated after Ms. Izquierdo returns here for further follow-up. Thank you again for your referral. Please do not hesitate to contact me if you have any further questions. Signed and authenticated by: Gutierrez Carranza [facility] [address] [place] [address] . This message is confidential, intended only for the named recipient(s) and may contain information that is privileged or exempt from disclosure under applicable law. If you are not the intended recipient(s), you are notified that the dissemination, distribution or copying of this information is prohibited. If you received this message in error, please notify the sender then delete this message. # SIGNED BY Gutierrez Yoo ([facility])05/25/2024 06:21AM Past Medical History Past Medical History: Hyperlipidemia, Hypertension, Osteoarthritis (OA) Additional Past Medical History / Comment(s): aortic aneurysm, back pain, prediabetic per pt diet controlled History of Any Multi-Drug Resistant Organisms: None Reported Past Surgical History: Back Surgery, Section, Cholecystectomy, Heart Catheterization, Hysterectomy Additional Past Surgical History / Comment(s): colonoscopy, back surgery x2. spinal injections x4, cataract surg Past Anesthesia/Blood Transfusion Reactions: No Reported Reaction Smoking Status: Never smoker - Past Family History Mother Family Medical History: Coronary Artery Disease (CAD), Diabetes Mellitus, Hypertension, Myocardial Infarction ([place]) Father Family Medical History: Cancer, COPD, Pulmonary Embolus Additional Family Medical History / Comment(s): throat ca Brother(s) Family Medical History: Cancer, Diabetes Mellitus, Hypertension Additional Family Medical History / Comment(s): kidney ca Medications and Allergies Home Medications Medication Instructions Recorded Confirmed Type Citalopram Hydrobromide [CeleXA] 20 mg PO DAILY 04/06/20 05/27/24 History Rosuvastatin Calcium [Crestor] 5 mg PO HS 04/06/20 05/27/24 History Zolpidem [Ambien] 5 mg PO HS PRN 04/06/20 05/27/24 History Docusate [Colace] 100 mg PO DAILY 11/06/20 05/27/24 History Multivitamins, Thera [Multivitamin 1 tab PO DAILY 11/06/20 05/27/24 History (formulary)] Olmesartan/Hydrochlorothiazide 1 tab PO DAILY 11/06/20 05/27/24 History [Benicar Hct 40-25 mg Tablet] Calcium Carbonate/Vitamin D3 1 each PO DAILY 05/27/24 05/27/24 History [Calcium 250-D Tablet] Cyclobenzaprine [Flexeril] 10 mg PO HS 05/27/24 05/27/24 History Allergies Allergy/AdvReac Type Severity Reaction Status Date / Time apple Allergy Anaphylaxis Verified 05/27/24 09:10 bacitracin Allergy Rash/Hives Verified 05/27/24 09:10 [From Neosporin ([id number])] lanolin Allergy Rash/Hives Verified 05/27/24 09:10 neomycin Allergy Rash/Hives Verified 05/27/24 09:10 [From Neosporin ([id number])] pear Allergy Anaphylaxis Verified 05/27/24 09:10 polymyxin B Allergy Rash/Hives Verified 05/27/24 09:10 [From Neosporin ([id number])] adhesive tape AdvReac skin welts Verified 05/27/24 09:10 hydromorphone [From Dilaudid] AdvReac severe Verified 05/27/24 09:10 headache Physical Examination Osteopathic Statement: *. No significant issues noted on an osteopathic structural exam other than those noted in the History and Physical/Consult.
[~2024-05-30 09:32] MED LIST changes: -LACTATED RINGERS 1,000 ML IV SCH; +LIDOCAINE 1% (10MG/ML) FOR IV START INTRADERMA PRN; +ONDANSETRON 4 MG/2 ML VIAL IVP PRN; -Pre Op ABX Message 1 EACH MISC MISCELLANE ONE; +TRANEXAMIC 1,000 MG/100ML-NACL 1,000 MG in SALINE 1 100ML.BAG IVPB PRN; +fentaNYL (PF) 50 MCG/ML 2 ML AMP IVP PRN
[2024-05-30] MEDS: IV FLUID CONTINUATION 1,000 ML IV ONE ×5 (10:01→16:54)
[2024-05-30 10:17] LABS: Glucose,Whole Blood 105 mg/dL (70-110)
[2024-05-30] MEDS: DEXAMETHASONE SOD PHOSPHATE 4 MG/ML 1 ML VIAL IV ONE (10:19)
[2024-05-30] MEDS: ONDANSETRON 4 MG/2 ML VIAL IVP ONE (10:19)
[2024-05-30] MEDS: GABAPENTIN 300 MG CAP PO PRN (10:19)
[2024-05-30] MEDS: ACETAMINOPHEN TAB 500 MG TAB PO PRN (10:19)
[2024-05-30] MEDS: LACTATED RINGERS 1,000 ML IV SCH (10:20)
[2024-05-30] MEDS: MIDAZOLAM 2 MG/2 ML VIAL IV PRN (10:43)
[2024-05-30] MEDS ORDERED: PROPOFOL 10 MG/ML 20 ML VIAL IV ONE (11:26)
[2024-05-30] MEDS ORDERED: TRANEXAMIC 1,000 MG/100ML-NACL PREMIX BAG ONE (11:26)
[2024-05-30] MEDS ORDERED: fentaNYL (PF) 50 MCG/ML 2 ML AMP ONE (11:26)
[2024-05-30] MEDS ORDERED: PHENYLEPHRINE 10 MG/ML VIAL ONE (11:26)
[2024-05-30] MEDS ORDERED: SUCCINYLCHOLINE CHLORIDE 200 MG/10 ML VIAL IV ONE (11:26)
[2024-05-30] MEDS ORDERED: GLYCOPYRROLATE 0.2 MG/ML 2 ML VIAL ONE (11:26)
[2024-05-30] MEDS ORDERED: NEOSTIGMINE 1 MG/ML 10 ML VIAL ONE (11:26)
[2024-05-30] MEDS ORDERED: LIDOCAINE 1% INJ 10MG/ML (20 ML MDV) ONE (11:26)
[2024-05-30] MEDS ORDERED: ROCURONIUM 10 MG/ML (5 ML VIAL) IV ONE (11:26)
[2024-05-30] MEDS ORDERED: .MORPHINE SULFATE (INJ) 10 MG/ML SYRINGE ONE (11:26)
[2024-05-30] MEDS ORDERED: MIDAZOLAM 2 MG/2 ML VIAL ONE (11:26)
[2024-05-30] MEDS: GENTAMICIN 80 MG in SODIUM CHLORIDE 0.9% IRRIGATIO 3,000 ML IRRIGATION ONE (12:02)
[2024-05-30] MEDS: ceFAZolin 3,000 MG in SODIUM CHLORIDE 0.9% IRRIGATIO 3,000 ML IRRIGATION ONE (12:02)
[2024-05-30] MEDS: THROMBIN (BOVINE) 5,000 UNIT VIAL TOPICAL ONE (12:02)
[2024-05-30] MEDS: SODIUM CHLORIDE 0.9% 1,000 ML IV ONE (12:32)
[2024-05-30] MEDS: LACTATED RINGERS 1,000 ML IV ONE (12:32)
[2024-05-30] MEDS: VANCOMYCIN 1,000 MG VIAL MISCELLANE ONE (14:16)
[2024-05-30] MEDS ORDERED: ONDANSETRON 4 MG/2 ML VIAL IVP PRN (14:56)
[2024-05-30] MEDS ORDERED: HYDROmorphone 0.5 MG/0.5 ML SYRINGE IVP PRN (14:56)
[2024-05-30] MEDS ORDERED: MAGNESIUM HYDROXIDE 2,400 MG/30 ML CUP PO PRN (14:56)
[2024-05-30] MEDS ORDERED: HYDROmorphone 1 MG/ML 1 ML SYRINGE IVP PRN (14:56)
--- NOTE | 2024-05-30 14:56 | XR ---
Intraoperative/procedural fluoroscopic services were provided for lumbar fusion L4-L5. Total fluorosc opy time is 31 seconds with a total of 7 submitted images to PACS note section. Total DAP 654.31 cGyc m2. Please see the operative note for further details. [facility], , 05/30/2024 2:54 PM
[2024-05-30] MEDS: MEPERIDINE 50 MG/ML SYRINGE IVP STA (15:37)
[2024-05-30] MEDS: droPERidol 5 MG/2 ML VIAL IVP ONE (16:16)
[2024-05-30] MEDS ORDERED: MORPHINE SULFATE 4 MG/ML SYRINGE IVP PRN (16:51)
[2024-05-30] MEDS: KETOROLAC 15 MG/ML 1 ML VIAL IVP SCH (17:51)
[2024-05-30] MEDS: CYCLOBENZAPRINE 10 MG TAB PO PRN (17:51)
[2024-05-30] MEDS ORDERED: ZOLPIDEM 5 MG TAB PO PRN (18:07)
[2024-05-30] MEDS: MORPHINE SULFATE 2 MG/ML SYRINGE IVP PRN (18:53)
--- NOTE | 2024-05-30 21:07 | P.PN ---
Progress Note - Text Progress Note Date: 05/30/24 BRIEF POST OP: DX: PSEUDOARTHROSIS L5-S1 WITH L4-S1 SPONDYLOSIS AND STENOSIS PROCEDURE: REVISION L4-S1 DECOMPRESSION AND FUSION EBL: 350 ANESTHESIA: TANIAA SURGEON: VARGAS COMPLICATIONS: NONE POST OP: nO BLTPP > 10 BLS ok FOR UP AND ABOUT WITH ASSIST DANGLE AT BEDSIDE POD 0 WALKER WHEN UP BRACE WHEN UP WITH PT KEEP TREVIZO UNTIL AMBULATORY PAIN CONTROL PRN CT SCAN WHEN ABLE
[2024-05-30] MEDS: HYDROcodone/APAP 10-325MG 1 EACH TAB PO PRN (21:13)
[2024-05-30] MEDS: ATORVASTATIN 10 MG TAB PO SCH (21:14)
[2024-05-30] MEDS: CYCLOBENZAPRINE 10 MG TAB PO SCH (21:14)
--- NOTE | 2024-05-30 22:45 | CT ---
EXAMINATION TYPE: CT lumbar spine wo con DATE OF EXAM: 05/30/2024 10:28 PM COMPARISON: Prior CT lumbar spine April 15, 2022 CLINICAL INDICATION: Female, 59 years old with history of s/p Revision L4-S1 PLIF; PHH, s/p Revision L4-S1 PLIF TECHNIQUE: Unenhanced CT of the lumbar spine was performed. Bone and soft tissue window settings are submitted as well as coronal and sagittal reconstructions. CT DLP: 1041.[address] CTDI: 44 mGy Automated exposure control for dose reduction was used. FINDINGS: There are 5 lumbar type vertebra redemonstrated. There are now bilateral posterior transpedicular minh s and screws transfixing L4-S1 levels. Artificial disc material L5-S1 level is redemonstrated. There is no larger disc spacer at L4-L5 level. There are new posterior decompression changes with left side d laminectomy defects and spinous process resection at the L4 and L5 levels. Alignment is stable and satisfactory. Spinal canal is grossly preserved. There is ill-defined fluid air in the posterior tiss ue consistent with recent surgery. There is right-sided posterior percutaneous drainage catheter term inating near the level of the right L3-L4 lamina. Surgical screws at the bilateral S1 level penetrati ng anterior wall of the sacrum extending into the posterior peritoneal cavity, left sided screw exten ds into the the posterior aspect of the left common iliac vein on axial image 64. No suspicious free fluid at this level is present to suggest tear. IMPRESSION: Interval surgery at L4-S1 levels as detailed above . Stable and satisfactory alignment i s seen. Bilateral S1 screws penetrates through the anterior margin of the sacrum, left-sided screw ex tends into the posterior portion of the left common iliac vein. [facility], , 05/30/2024 10:42 PM
[2024-05-31] MEDS: CYCLOBENZAPRINE 10 MG TAB PO PRN (05:56)
[2024-05-31] MEDS: HYDROcodone/APAP 5-325MG 1 EACH TAB PO PRN (07:26)
--- NOTE | 2024-05-31 07:49 | P.OP ---
Date of Procedure: 05/30/24 Preoperative Diagnosis: 1. L5-S1 PSEUDOARTHROSIS WITH INSTABILITY 2. L4-5 SPONDYLOSIS WITH STENOSIS AND FACET CYST 3. LE RADICULOPATHY 4. LE WEAKNESS 5. LE PARESTHESIAS 6. LOW BACK PAIN Postoperative Diagnosis: 1. L5-S1 PSEUDOARTHROSIS WITH INSTABILITY 2. L4-5 SPONDYLOSIS WITH STENOSIS AND FACET CYST 3. LE RADICULOPATHY 4. LE WEAKNESS 5. LE PARESTHESIAS 6. LOW BACK PAIN Procedure(s) Performed: 1. L4-5 POSTEROLATERAL AND INTERBODY FUSION 2. REVISION POSTEROLATERAL INSTRUMENTED FUSION L5-S1 3. SEGMENTAL INSTRUMENTATION L4-S1 (80494) 4. L4-5 AND L5-S1 BILATERAL LAMINECTOMY, FACETECTOMY AND FORAMINOTOMY FOR NEURAL DECOMPRESSION AND CAGE PLACEMENT 5. REMOVAL OF HARDWARE AND BROKEN SCREWS L5-S1 6. EXPLORATION OF FUSION L5-S1 WITH PSEUDOARTHROSIS FOUND 7. INSERTION OF BIOMECHANICAL DEVICES L4-5, CAGE 8. USE OF [employer] NAVIGATION FOR THE ASSISTANCE IN ACCURATE SCREW PLACEMENT USE OF IONM ALL SCREWS TESTING >20mA Implants: -LISETTE EVEREST RODS AND SCREWS -SI BONE GRANIT SCREWSX2 -GLOBUS SABLE CAGE 8 DEG; 10-16, 10MM -ARTHROCELL, ALLOCELL, CONTOUR, AUTOGRAFAT, MAGNATOS, DBM Anesthesia: GETA Surgeon: Gutierrez Yoo Singer Songwriter #1: Nati Schaefer (WAS PRESENT AND ASSISTED WITH ALL ASPECTS OF THE CASE FROM POSITION TO DRESSING PLACEMENT) Estimated Blood Loss (ml): 350 IV fluids (ml): 1,500 Urine output (ml): 300 Pathology: none sent Condition: stable Disposition: PACU Indications for Procedure: IMPRESSION: It was my pleasure to have seen and examined Jessica. I reviewed the patient's clinical syndrome, physical findings, and imaging studies during the appointment today. It is my impression that the patient has a diagnosis of. 1.ASD L4-5 WITH GRADE I SPONDYLOLISTHESIS, UNSTABLE WITH RADICULOPATHY 2.L5-S1 PSEUDOARTHROSIS WITH BROKEN S1 SCREW 3.L4-S1 STENOSIS WITH NEUROGENIC CLAUDICATION 4. FACET ARTHROSIS 5. LOW BACK PAIN 6. LE PARESTHESIAS, PROGRESSIVE PLAN: Discussion: Revision L4-S1 Posterolateral and Interbody Fusion with Hardware Removal Patient Presentation: The patient is a 59 yo female presenting with persistent lower back pain and radicular symptoms. Previous imaging studies and clinical examination have revealed: - L5-S1 pseudoarthrosis - L4-5 Grade I spondylolisthesis - Moderate to severe stenosis at L4-5 Proposed Procedure: We are recommending a revision surgery involving: - Revision L4-S1 posterolateral fusion - Interbody fusion at L4-L5 and L5-S1 - Hardware removal at L5-S1 Rationale for Surgery: The primary goals of this procedure are to: - Address the failed fusion (pseudoarthrosis) at L5-S1 - Stabilize the L4-5 spondylolisthesis - Decompress the spinal canal to alleviate stenosis symptoms Surgical Approach and Technique: The procedure will involve: - Posterior approach to the lumbar spine - Careful dissection and exposure of the previous surgical site - Removal of existing hardware at L5-S1 - Decompression of the spinal canal at L4-5 - Placement of interbody cages at L4-5 and possibly L5-S1 - Application of new instrumentation for L4-S1 fusion Potential Risks and Complications As with any surgical procedure, there are risks involved. These include, but are not limited to: - Infection - Bleeding - Nerve injury - Dural tear - Failure of fusion - Hardware complications - Persistent or worsening pain - Need for further surgery Expected Outcomes and Recovery Post-operative expectations include: - Initial increase in pain, gradually improving over weeks to months - Hospital stay of 2-4 days - Gradual return to activities over 3-6 months - Physical therapy to begin approximately 6 weeks post-surgery - Full recovery may take up to 12 months Alternative Treatment Options We have considered and trialed alternative treatments, including: - Continued conservative management (physical therapy, pain management) - Epidural steroid injections - Medications OTC and Rx Patient Questions and Concerns Address any specific questions or concerns the patient may have, such as: - Expected pain relief and functional improvement - Potential impact on daily activities and work - Long-term prognosis Informed Consent Confirm that the patient understands: - The nature of the procedure - The reasons for recommending this surgery - The potential risks and benefits - Alternative treatment options Post-operative Care and Follow-up Discuss the post-operative care plan, including: - Pain management strategy - Wound care instructions - Activity restrictions - Follow-up appointment schedule - Signs and symptoms that should prompt immediate medical attention By thoroughly discussing these points, we aim to ensure that the patient is well-informed about the proposed revision L4-S1 posterolateral and interbody fusion with hardware removal, and can make an educated decision about proceeding with the surgery. Description of Procedure: L4-S1 open REVISION Decompression and fusion (yury) The patient was seen and examined in the preoperative area. All preoperative protocols were followed. Informed consent was obtained, risks and benefits of the procedure were discussed at length. Risks including bleeding infection damage to the surrounding tissue and risk of reoperation were discussed with the patient. Risk of anesthesia up to and including was discussed with the patient. These are outlined in the risk review. They were willing to accept these risks and all the risks of surgery. The patient was given a weight-based dose of antibiotics in the form of 2 g Ancef. The patient was seen and evaluated by the anesthesia team who deemed them fit for surgery. The site was marked, the patient was willing to proceed with the procedure. The patient was transferred to the operative suite by the Department of anesthesia. They were then drifted off to sleep by the department anesthesia and GETA was performed. The patient tolerated this well. Todd catheter was placed by nursing staff, a-traumatically. Once confirmation of lines and ventilation the patient was transferred to a prone Alexis table very carefully. All bony prominences including wrists, elbows, axilla, chest, hips, and thighs, and feet were padded very well. Special attention was paid to the genitalia, and these were padded accordingly. SCDs were placed on bilateral lower extremities and were connected. Arms were well padded and placed on arm boards up and out in the 90/90 position. Once in position, again we confirmed good ventilation capabilities and that lines were running appropriately. The patients Lumbar spine was then exposed. 1010s were placed outlining the incision site. Standard alcohol was used to clean the incision site and allowed to dry. C-arm was used to needle localize the pedicles at L4-S1 and bio-jamila the patient and confirm level for incision which was marked with a skin marker. Operative briefing was performed with all teams and everyone in agreement to proceed. The patient was then prepped and draped in a normal sterile fashion. Timeout was then performed, and all parties agreed with the procedure to be performed. Midline skin incision was made over the previously bio-marked area and dissection taken down over the SP of L3-S1. L4-S1 was taken out over facet joints and TPs and a penfield 4 used to jamila the L4 pedicle. Lateral image used to confirm levels. Old hardware was exposed at L5-S1 on the right and was removed. Screw at S1 was broken and at L was loose. The fusion was explored. There was still a lot of motion at the L5_S1 segment and minimal PL bone was formed. The broken screw at S1 was found and removed as well using standard extraction techniques and there was minimal bone loss. The wound was then copiously irrigated and the screw tracts and areas were debrided of scar tissues. Screws were then proceeded to be placed b/l at pedicles from L4-S1 using [employer] Navigation. An SP clamp was used, 3D C arm spin obtained and confirmed to be accurate. Once this was confirmed screws were placed using a navigated devyn, navigated awl-tap and navigated fast food delivery driver. Once screws were placed they were confirmed to be in good position using AP and Lateral fluoroscopy. The wound was then irrigated. Screws were tested and all tested above 20 mA. We then proceeded to decompression and cage placement. Attention was then turned to interbody fusion at L5-S1. Bilateral laminectomy, complete facetectomy and foraminotomy performed at L5-S1 using high speed devyn and Kerrison rongeur. The ligamentum was removed and the dural sac decompressed. Exiting and traversing roots visualized and decompressed. Large Facet cyst was removed from the left side at L5-S1. Neural elements were then protected. Area was irrigated copiously, and meticulous hemostasis achieved. We then turned attention to L4-5 region. Attention was then turned to interbody fusion at L4-5. Bilateral laminectomy, complete facetectomy and foraminotomy performed at L4-5 using high speed devyn and Kerrison rongeur. The ligamentum was removed and the dural sac decompressed. Exiting and traversing roots visualized and decompressed. Neural elements were then protected, and disc space accessed with an osteotome. Sequential shaving then done under lateral imaging and complete discectomy performed using leslie, pituitary and curette. Once good bleeding endplates accomplished and good height christianity with trials, a combination of autograft, allograft and synthetic placed anterior in the disc space. The cage was then selected and impacted into place under lateral imaging. The cage was then expanded restoring height, lordosis and alignment. The cage was backfilled with bone graft through a funnel. The career placement services counselor was removed and the area inspected. Good cage placement, stable cage and no injuries. Area was irrigated copiously, and meticulous hemostasis achieved. The wound and disc spaces were irrigated and meticulous hemostasis achieved. Rods were then sized and selected and placed into S1 screws b/l. Set screws locked these in place and then sequentially reduced into L4 and L5 b/l for alignment christianity. This was accomplished. Set screws were then all placed and final tightened. TPs were then decorticated with a high speed devyn. The wound was irrigated with 3L Ancef irrigation, 3L gentamicin irrigation and 3L NSS. Surgery was placed over the dura. Autograft and MagnatOs, DBM and autograft then placed in the posterolateral gutters and impacted into place. Deep drain placed and secured to the skin. Final images confirmed good placement of hardware and good reduction of listhesis as well as christianity of height and lordosis. Fascia was then closed with #1 PDS. Deep subq closed with 0 Vicryl. Superficial subq closed with 2-0 Vicryl and skin with mónica. Wound edges approximated very well. Wound was then cleaned with alcohol and dried. Wounds were dressed steril with adaptic, 4x4, abd and tegaderms. Drain was dressed as well. The patient was then transferred off the table back to their hospital bed a- traumatically. They were extubated by the department of anesthesia. They were then transferred to PACU in stable condition having tolerated the procedure with no complications.
[2024-05-31] MEDS: SENNOSIDES-DOCUSATE SODIUM 1 EACH TAB PO SCH (07:56)
[2024-05-31] MEDS: CITALOPRAM HYDROBROMIDE 20 MG TAB PO SCH (07:56)
[2024-05-31] MEDS: MULTIVITAMINS, THERA 1 EACH TAB PO SCH (07:56)
[2024-05-31] MEDS: LOSARTAN 50 MG TAB PO SCH (07:56)
[2024-05-31] MEDS: CALCIUM CARB-VIT D 500 MG-5 MCG TAB PO SCH (07:56)
[2024-05-31] MEDS: hydroCHLOROthiazide 25 MG TAB PO SCH (07:57)
[2024-05-31] MEDS: DOCUSATE 100 MG CAP PO SCH (07:59)
[2024-05-31 08:54] LABS: ALT 16 U/L (8-44); AST 22 U/L (13-35); Albumin 3.6 g/dL (3.8-4.9); Albumin/Globulin Ratio 2.12 Ratio (1.60-3.17); Alkaline Phosphatase 43 U/L (41-126); BUN/Creat Ratio 22.17 Ratio (12.00-20.00); Blood Urea Nitrogen 13.3 mg/dL (9.0-27.0); Calcium 8.5 mg/dL (8.7-10.3); Chloride 100 mmol/L (96-109); Globulin 1.7 g/dL (1.6-3.3); Glucose 96 mg/dL (70-110); Potassium 4.4 mmol/L (3.5-5.5); Sodium 135 mmol/L (135-145); Total Bilirubin <0.2 mg/dL (0.3-1.2); Total Protein 5.3 g/dL (6.2-8.2)
[2024-05-31 09:00] LABS: Basophils # (A) 0.02 X 10*3/uL (0.00-0.10); Basophils % (A) 0.2 %; Eosinophils # (A) 0.02 X 10*3/uL (0.04-0.35); Eosinophils % (A) 0.2 %; HCT 28.9 % (37.2-46.3); HGB 9.9 g/dL (12.0-15.0); Lymphocytes # (A) 1.76 X 10*3/uL (0.90-5.00); Lymphocytes % (A) 20.8 %; MCH 30.3 pg (27.0-32.0); MCHC 34.3 g/dL (32.0-37.0); MCV 88.4 FL (80.0-97.0); Mean Platelet Volume 9.8 FL (9.5-12.2); Monocytes % (A) 5.9 %; NRBC Per 100 WBC 0 X 10*3/uL (0.00-0.01); Neutrophils # (A) 6.12 X 10*3/uL (1.80-7.70); Neutrophils % (A) 72.5 %; Platelet Count 187 X 10*3/uL (140-440); RBC 3.27 X 10*6/uL (4.10-5.20); WBC 8.45 X 10*3/uL (4.50-10.00)
[2024-05-31] MEDS ORDERED: NON FORMULARY DRUG (Olmesartan/Hydrochlorothiazide [Benicar Hct 40-25 Mg Tablet] 1 EACH Ta PO SCH (09:00)
--- NOTE | 2024-05-31 09:13 | P.PN ---
Subjective Progress Note Date: 05/31/24 Principal diagnosis: 1.ASD L4-5 WITH GRADE I SPONDYLOLISTHESIS, UNSTABLE WITH RADICULOPATHY 2.L5-S1 PSEUDOARTHROSIS WITH BROKEN S1 SCREW 3.L4-S1 STENOSIS WITH NEUROGENIC CLAUDICATION 4. FACET ARTHROSIS 5. LOW BACK PAIN 6. LE PARESTHESIAS, PROGRESSIVE Patient seen and examined this morning. Patient is resting chronically embedded. She does report some moderate pain to her lumbar region. She does report that the current medication is managing her pain at this time. Patient has not been up since the procedure. Patient may be up with physical therapy and to be up in chair with all meals. Surgical incision to the lumbar spine, dressing is clean dry and intact with Hemovac present. Leon catheter is present and patent, this may be removed once patient is up and about. CT of the lumbar spine results have been reviewed and discussed with Dr. Yoo, no acute concerns at this time. We will continue to monitor patient's progress. Continue to encourage patient to increase her activity as tolerated and to use incentive spirometer 10 times an hour while awake. Objective - Vital Signs Vital signs: Vital Signs Temp 98.1 F 05/31/24 02:00 Pulse 89 05/31/24 02:00 Resp 16 05/31/24 02:00 BP 118/69 05/31/24 02:00 Pulse Ox 94 L 05/31/24 02:00 FiO2 Intake & Output 05/30/24 05/31/24 05/31/24 18:59 06:59 18:59 Intake Total 2327 240 Output Total 705 760 40 Balance 1622 -520 -40 Weight 72.1 kg Intake: IV 2327 Oral 240 Output: Drainage 160 40 Lower Back 160 40 Urine 455 600 Estimated Blood Loss 250 Other: Voiding Method Indwelling Catheter - Exam Physical Examination General: The patient is awake and alert, in no acute distress Skin: Skin is warm and dry with no obvious rashes or lesions. Surgical incision to the lumbar spine, dressing is clean dry and intact with Hemovac present. Neck: The neck is supple, there is no tenderness and ROM intact. Cardiovascular: There is a regular rate and rhythm. Respiratory: Respirations are non-labored.. Gastrointestinal: Soft, non-distended, non-tender abdomen. Back: There is no tenderness to palpation in the midline, paralumbar, parathoracic or buttocks region. There is no obvious deformity. Musculoskeletal: ROM limited secondary to pain and stiffness from surgical procedure. Right: shoulder abduction 5/5, elbow flexors 5/5, wrist dorsiflexors 5/5. finger abductor 5/5, fpga design engineer 5/5, hip flexor 4/5, knee flexor 4/5, ankle dorsiflexor 5/5, ankle plantarflexion 5/5 and extensor hallucis 5/5. Left: shoulder abduction 5/5, elbow flexors 5/5, wrist dorsiflexors 5/5. finger abductor 5/5, fpga design engineer 5/5, hip flexor 4/5, knee flexor 4/5, ankle dorsiflexor 5/5, ankle plantarflexion 5/5 and extensor hallucis 5/5. Neurological: CN 2-12 intact. There are no obvious motor or sensory deficits. Movement and coordination equal and intact. Sensory exam to light touch intact C5-T1 and intact from L2-S1. Reflexes 2/4 in bilateral upper and lower extremities. Negative Hoffmans, babinski, and clonus signs. Psychiatric: Cooperative, appropriate mood & affect, normal judgment. - Labs CBC & Chem 7: 05/31/24 06:01 Assessment and Plan Assessment: Postop day 1: Revision L4-S1 decompression and fusion with removal of hardware Plan: -Appreciate sr solutions consultant and team management. -Activity: Ambulate QID, OOB all meals, up and about, limit lifting bending twisting to less than 5 lbs. Use walker or cane if needed for stability. -Daily PT/OT, increase ambulation strength and balance. -Brace when up and about, not needed in bed or chair -Pain control: Adequate at this time -Meds: reviewed -GI ppx: senna, Miralax -DC leon when up and about, bedside commode if needed -DVT PPX: Aspirin 81mg daily -Hygiene: Maintain incision clean and dry. May change dressing as needed, please document in notes if perfromed. Meticulous cleaning after BMs away from the incision site -Drains: Maintain for now. Continue to monitor and record output q shift. -Encourage IS 10x/hr -Dispo: Anticipate discharge home with homecare. *I reviewed and discussed this case with my attending Dr. Yoo, whom has reviewed this chart and films and is in agreement with assessment and plan of care as outlined above. I have personally seen and examined the patient, performed the documentation and the assessment and plan as written. Number of minutes spent on the visit: 20m.
--- NOTE | 2024-05-31 09:39 | P.CONS ---
History of Present Illness - Reason for Consult Consult date: 05/30/24 Medical management Requesting physician: Gutierrez Yoo - Chief Complaint Status post revision L4 S1 with posterolateral fusion/removal of hardware - History of Present Illness HISTORY OF PRESENT ILLNESS: This is a 59-year-old female patient of mine with a previous medical history significant for hypertension and hypertensive heart vascular disease, hyperlipidemia, history of allergic rhinitis, major depressive disorder, history of spondylosis of the lumbar spine status post discectomy with fusion of L5 and S1 by Dr. Ramirez few years back, with a chronic low back pain, history of thoracic aortic aneurysm, history of aortic insufficiency with bicuspid aortic valve, has been under the care of cardiology on a regular basis, patient was scheduled to go for revision of L4 S1 with posterolateral fusion and interbody fusion of L for L5 L5 L S1 and removal of the hardware of L5-S1 that was done successfully by Dr. Yoo and I was asked to see the patient for postoperative medical management. REVIEW OF SYSTEMS: Constitutional: No documented fever, no chills, no night sweats. No weight change. No weakness, fatigue or lethargy. No daytime sleepiness. EENT: No headache. No blurred vision or double vision, no loss of vision. No loss of Hearing, no ringing in the ears, no dizziness. No nasal drainage or congestion. No epistaxis. No sore throat. Lungs: No shortness of breath, no cough, no sputum production. No wheezing. Reports dyspnea with activity. Cardiovascular: No chest pain, no lower extremity edema. No palpitations. No paroxysmal nocturnal dyspnea. No orthopnea. No lightheadedness or dizziness. No syncopal episodes. Abdominal: Reports no abdominal pain. No nausea, vomiting. No diarrhea. No constipation. No bloody or tarry stools reports loss of appetite. Genitourinary: No dysuria, increased frequency, urgency. No urinary retention. Musculoskeletal: No myalgias. No muscle weakness, positive for gait dysfunct ion, no frequent falls. positive for back pain. No neck pain. Integumentary: No wounds, no lesions. No rash or pruritus. No unusual bruising. No change in hair or nails. Neurologic: No aphasia. No facial droop. No change in mentation. No head injury. No headache. No paralysis. No paresthesia. Psychiatric: positive for depression. No anxiety. No mood swings. Endocrine: No abnormal blood sugars. No weight change. PAST MEDICAL HISTORY: Hypertension and hypertensive cardiovascular disease. Mixed hyperlipidemia. Allergic rhinitis. Thoracic aortic aneurysm. Aortic insufficiency with bicuspid aortic valve. 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 Chronic low back pain. GERD. Depression. PAST SURGICAL HISTORY: Lumbar fusion 2011. SOCIAL HISTORY: Patient is a lifelong non-smoker, she denies any alcohol ingestion, she denies any drug use or abuse. She lives with her . FAMILY HISTORY: Father at age of 82 from prostate cancer and had history of COPD, mother at age of 79 from CAD, ischemic heart disease, diabetes, hypertension and hypertensive cardiovascular disease, patient has 2 brothers alive and well one of them with hypertriglyceridemia and the other 1 with depression, patient has 1 sister alive and well, she has 2 daughters one of them with a pseudotumor cerebri, the other 1 is fine PHYSICAL EXAMINATION: General: 59-year-old female laying down in bed in minimal distress. HEENT: Head is atraumatic, normocephalic, pupils were equal round reactive to light and recommendation, extraocular muscle movement were intact, sclera n onicteric, conjunctivae were pale, mucous membranes of the mouth are somewhat dry. Neck: Supple, no JVP, normal carotid upstroke bilaterally, no lymphadenopathy. Chest: Decreased breath sounds at the bases, few rhonchi, no expiratory wheezes, no chest wall tenderness, no intercostal retractions. Heart: First heart sound is normal, second heart sounds normal there is systolic ejection murmur 2/6 located in the left sternal border. Abdomen: Soft, nontender, nondistended, positive bowel sounds. Extremities: There is no edema no calf tenderness DP +2 bilaterally. Neurologic examination: Patient is awake alert and oriented x3, cranial nerves II-12 appear grossly intact, muscle power were 5 out of 5 in upper extremities and 5 out of 5 in bilateral lower extremities, deep tendon reflexes normal b ilaterally. ASSESSMENT AND PLAN: 1. Postoperative day #0 status post revision of L4-S1 with posterolateral fusion and interbody L4-L5 L5-S1 and removal of hardware of L5-S1, patient was instructed to use incentive spirometer to reduce the incidence of atelectasis and healthcare associated pneumonia, continue current pain management as outlined by spine surgery, early ambulation, physical therapy evaluation tomorrow morning, we will follow-up with the patient very closely, labs will be done and repeated tomorrow morning. 2. Hypertension and hypertensive cardiovascular disease. Continue patient on olmesartan 40/25 mg orally once every day, monitor the patient blood pressure very closely. 3. Mixed hyperlipidemia. Continue rosuvastatin or substitute atorvastatin 40 mg once every day monitor the patient with panel, keep LDL 55-70. 4. Allergic rhinitis. Appears to be stable at this time. 5. Thoracic aortic aneurysm with surveillance CAT scan is up-to-date. 6. Bicuspid aortic valve with aortic insufficiency. Stable at this time. Echocardiogram is up-to-date. Follows with cardiology on a regular basis. 7. Insomnia. Continue zolpidem 5 mg at bedtime. 8. DVT prophylaxis. Bilateral knee-high VANGIE hose. Early ambulation. 9. GI prophylaxis. Protonix 40 mg orally once every day. 10. Thank you for the consult we will follow the patient with you. Past Medical History Past Medical History: Hyperlipidemia, Hypertension, Osteoarthritis (OA) Additional Past Medical History / Comment(s): aortic aneurysm, back pain, prediabetic per pt diet controlled History of Any Multi-Drug Resistant Organisms: None Reported Past Surgical History: Back Surgery, Section, Cholecystectomy, Heart Catheterization, Hysterectomy Additional Past Surgical History / Comment(s): colonoscopy, back surgery x2. spinal injections x4, cataract surg Past Anesthesia/Blood Transfusion Reactions: No Reported Reaction Smoking Status: Never smoker - Past Family History Mother Family Medical History: Coronary Artery Disease (CAD), Diabetes Mellitus, Hypertension, Myocardial Infarction (ME) Father Family Medical History: Cancer, COPD, Pulmonary Embolus Additional Family Medical History / Comment(s): throat ca Brother(s) Family Medical History: Cancer, Diabetes Mellitus, Hypertension Additional Family Medical History / Comment(s): kidney ca Medications and Allergies Home Medications Medication Instructions Recorded Confirmed Type Citalopram Hydrobromide [CeleXA] 20 mg PO DAILY 04/06/20 05/30/24 History Rosuvastatin Calcium [Crestor] 5 mg PO HS 04/06/20 05/30/24 History Zolpidem [Ambien] 5 mg PO HS PRN 04/06/20 05/30/24 History Docusate [Colace] 100 mg PO DAILY 11/06/20 05/30/24 History Multivitamins, Thera [Multivitamin 1 tab PO DAILY 11/06/20 05/30/24 History (formulary)] Olmesartan/Hydrochlorothiazide 1 tab PO DAILY 11/06/20 05/30/24 History [Benicar Hct 40-25 mg Tablet] Calcium Carbonate/Vitamin D3 1 each PO DAILY 05/27/24 05/30/24 History [Calcium 250-D Tablet] Cyclobenzaprine [Flexeril] 10 mg PO HS 05/27/24 05/30/24 History Allergies Allergy/AdvReac Type Severity Reaction Status Date / Time apple Allergy Anaphylaxis Verified 05/30/24 09:59 bacitracin Allergy Rash/Hives Verified 05/30/24 09:59 [From Neosporin ([id number])] lanolin Allergy Rash/Hives Verified 05/30/24 09:59 neomycin Allergy Rash/Hives Verified 05/30/24 09:59 [From Neosporin ([id number])] pear Allergy Anaphylaxis Verified 05/30/24 09:59 polymyxin B Allergy Rash/Hives Verified 05/30/24 09:59 [From Neosporin ([id number])] adhesive tape AdvReac skin welts Verified 05/30/24 09:59 hydromorphone [From Dilaudid] AdvReac severe Verified 05/30/24 09:59 headache Physical Exam Vitals: Vital Signs Temp Pulse Pulse Resp BP BP Pulse Ox 05/30/24 17:08 97.6 F 88 16 121/76 95 05/30/24 16:31 84 16 109/62 97 05/30/24 16:16 91 16 112/64 96 05/30/24 16:01 89 16 113/64 95 05/30/24 15:46 94 16 112/66 96 05/30/24 15:31 87 16 99/67 96 05/30/24 15:16 82 16 114/59 97 05/30/24 15:01 98 F 81 16 116/62 98 05/30/24 10:02 97 F L 94 16 144/76 95 Intake and Output 05/30/24 05/30/24 05/30/24 06:59 14:59 22:59 Intake Total 1852 475 Output Total 480 225 Balance 1372 250 Intake: IV 1852 475 Output: Urine 230 225 Estimated Blood Loss 250 Other: Weight 72.1 kg
--- NOTE | 2024-06-01 06:44 | P.PN ---
Subjective Progress Note Date: 06/01/24 Principal diagnosis: 1.ASD L4-5 WITH GRADE I SPONDYLOLISTHESIS, UNSTABLE WITH RADICULOPATHY 2.L5-S1 PSEUDOARTHROSIS WITH BROKEN S1 SCREW 3.L4-S1 STENOSIS WITH NEUROGENIC CLAUDICATION 4. FACET ARTHROSIS 5. LOW BACK PAIN 6. LE PARESTHESIAS, PROGRESSIVE Patient seen and examined this morning. Patient is resting comfortably in bed. She states her pain is controlled on current regimen. She does state she has some burning pain on the right lateral lumbar region. She states she has noticed some swelling into her feet. IV fluids can be discontinued at this time. Patient has been up and working with PT and sitting in chair for meals. She states she is tolerating activity well. Surgical incision to the lumbar spine, dressing is CDI with hemovac present with 95ml output documented over night. Continue to encourage patient to increase her activity as tolerated and to use incentive spirometer 10 times an hour while awake. Objective - Vital Signs Vital signs: Vital Signs Temp 98.6 F 06/01/24 01:28 Pulse 85 06/01/24 01:28 Resp 14 06/01/24 01:28 BP 130/79 06/01/24 01:28 Pulse Ox 93 L 06/01/24 01:28 FiO2 Intake & Output 05/31/24 05/31/24 06/01/24 06:59 18:59 06:59 Intake Total 240 Output Total 760 180 95 Balance -520 -180 -95 Intake: Oral 240 Output: Drainage 160 180 95 Lower Back 160 180 95 Urine 600 Other: Voiding Method Indwelling Catheter # Voids 2 - Exam Physical Examination General: The patient is awake and alert, in no acute distress Skin: Skin is warm and dry with no obvious rashes or lesions. Surgical incision to the lumbar spine, dressing is clean dry and intact with Hemovac present with 95ml output overnight. Neck: The neck is supple, there is no tenderness and ROM intact. Cardiovascular: There is a regular rate and rhythm. Respiratory: Respirations are non-labored.. Gastrointestinal: Soft, non-distended, non-tender abdomen. Back: There is no tenderness to palpation in the midline, paralumbar, parathoracic or buttocks region. There is no obvious deformity. Musculoskeletal: ROM limited secondary to pain and stiffness from surgical procedure. Right: shoulder abduction 5/5, elbow flexors 5/5, wrist dorsiflexors 5/5. finger abductor 5/5, food safety auditor 5/5, hip flexor 4/5, knee flexor 4/5, ankle dorsiflexor 5/5, ankle plantarflexion 5/5 and extensor hallucis 5/5. Left: shoulder abduction 5/5, elbow flexors 5/5, wrist dorsiflexors 5/5. finger abductor 5/5, food safety auditor 5/5, hip flexor 4/5, knee flexor 4/5, ankle dorsiflexor 5/5, ankle plantarflexion 5/5 and extensor hallucis 5/5. Neurological: CN 2-12 intact. There are no obvious motor or sensory deficits. Movement and coordination equal and intact. Sensory exam to light touch intact C5-T1 and intact from L2-S1. Reflexes 2/4 in bilateral upper and lower extremities. Negative Hoffmans, babinski, and clonus signs. Psychiatric: Cooperative, appropriate mood & affect, normal judgment. - Labs CBC & Chem 7: 05/31/24 06:01 05/31/24 06:01 Labs: Abnormal Lab Results - Last 24 Hours (Table) 05/31/24 05/31/24 Range/Units 06:01 06:01 RBC 3.27 L (4.10-5.20) X 10*6/uL Hgb 9.9 L (12.0-15.0) g/dL Hct 28.9 L (37.2-46.3) % Eosinophils # 0.02 L (0.04-0.35) X 10*3/uL BUN/Creatinine Ratio 22.17 H (12.00-20.00) Ratio Calcium 8.5 L (8.7-10.3) mg/dL Total Bilirubin <0.2 L (0.3-1.2) mg/dL Total Protein 5.3 L (6.2-8.2) g/dL Albumin 3.6 L (3.8-4.9) g/dL Assessment and Plan Assessment: Postop day 2: Revision L4-S1 decompression and fusion with removal of hardware Plan: -Appreciate healthcare network consultant and team management. -Activity: Ambulate QID, OOB all meals, up and about, limit lifting bending twisting to less than 5 lbs. Use walker or cane if needed for stability. -Daily PT/OT, increase ambulation strength and balance. -Brace when up and about, not needed in bed or chair -Pain control: Adequate at this time -Meds: reviewed -GI ppx: senna, Miralax -DVT PPX: Aspirin 81mg daily -Hygiene: Maintain incision clean and dry. May change dressing as needed, please document in notes if perfromed. Meticulous cleaning after BMs away from the incision site -Drains: Maintain for now. Continue to monitor and record output q shift. -Encourage IS 10x/hr -Dispo: Anticipate discharge home with homecare possibly tomorrow 06/02/24. *I reviewed and discussed this case with my attending Dr. Yoo, whom has reviewed this chart and films and is in agreement with assessment and plan of care as outlined above. I have personally seen and examined the patient, performed the documentation and the assessment and plan as written. Number of minutes spent on the visit: 20m.
[2024-06-01] MEDS: ASPIRIN 81 MG PO SCH (08:22)
--- NOTE | 2024-06-01 14:33 | P.PN ---
Subjective Progress Note Date: 05/31/24 HISTORY OF PRESENT ILLNESS: This is a 59-year-old female patient of mine with a previous medical history significant for hypertension and hypertensive heart vascular disease, hyperlipidemia, history of allergic rhinitis, major depressive disorder, history of spondylosis of the lumbar spine status post discectomy with fusion of L5 and S1 by Dr. Ramirez few years back, with a chronic low back pain, history of thoracic aortic aneurysm, history of aortic insufficiency with bicuspid aortic valve, has been under the care of cardiology on a regular basis, patient was scheduled to go for revision of L4 S1 with posterolateral fusion and interbody fusion of L for L5 L5 L S1 and removal of the hardware of L5-S1 that was done successfully by Dr. Yoo and I was asked to see the patient for pos toperative medical management. 05/31: Patient is laying down in bed she continues to have some pain in the lower back, her pain is well-controlled with the current pain management, she denies any chest pain, shortness of breath, she is laying on her side, she denies any pleurisy, she has no coughing or hemoptysis at this time, she did not use her sleeping pill last night, she is complaining of increased swelling in the lower extremities, I will start the patient on small dose of Lovenox 40 mg s ubcutaneous every 24 hours if okay with spine surgery monitor the patient very closely. Continue bilateral knee-high VANGIE hose, continue Venodyne's, increase activity level. REVIEW OF SYSTEMS: Constitutional: No documented fever, no chills, no night sweats. No weight change. No weakness, fatigue or lethargy. No daytime sleepiness. EENT: No headache. No blurred vision or double vision, no loss of vision. No loss of Hearing, no ringing in the ears, no dizziness. No nasal drainage or congestion. No epistaxis. No sore throat. Lungs: No shortness of breath, no cough, no sputum production. No wheezing. Reports dyspnea with activity. Cardiovascular: No chest pain, no lower extremity edema. No palpitations. No paroxysmal nocturnal dyspnea. No orthopnea. No lightheadedness or dizziness. No syncopal episodes. Abdominal: Reports no abdominal pain. No nausea, vomiting. No diarrhea. No constipation. No bloody or tarry stools reports loss of appetite. Genitourinary: No dysuria, increased frequency, urgency. No urinary retention. Musculoskeletal: No myalgias. No muscle weakness, positive for gait dysfunction, no frequent falls. positive for back pain. No neck pain. Integumentary: No wounds, no lesions. No rash or pruritus. No unusual bruising. No change in hair or nails. Neurologic: No aphasia. No facial droop. No change in mentation. No head injury. No headache. No paralysis. No paresthesia. Psychiatric: positive for depression. No anxiety. No mood swings. Endocrine: No abnormal blood sugars. No weight change. PHYSICAL EXAMINATION: General: 59-year-old female laying down in bed in minimal distress. HEENT: Head is atraumatic, normocephalic, pupils were equal round reactive to light and recommendation, extraocular muscle movement were intact, sclera nonicteric, conjunctivae were pale, mucous membranes of the mouth are somewhat dry. Neck: Supple, no JVP, normal carotid upstroke bilaterally, no lymphadenopathy. Chest: Decreased breath sounds at the bases, few rhonchi, no expiratory wheezes, no chest wall tenderness, no intercostal retractions. Heart: First heart sound is normal, second heart sounds normal there is systolic ejection murmur 2/6 located in the left sternal border. Abdomen: Soft, nontender, nondistended, positive bowel sounds. Extremities: There is no edema no calf tenderness DP +2 bilaterally. Neurologic examination: Patient is awake alert and oriented x3, cranial nerves II-12 appear grossly intact, muscle power were 5 out of 5 in upper extremities and 5 out of 5 in bilateral lower extremities, deep tendon reflexes normal bilaterally. ASSESSMENT AND PLAN: 1. Postoperative day #1 status post revision of L4-S1 with posterolateral fusion and interbody L4-L5 L5-S1 and removal of hardware of L5-S1, patient was instructed to use incentive spirometer to reduce the incidence of atelectasis and healthcare associated pneumonia, continue current pain management as outlined by spine surgery, early ambulation, , we will follow-up with the patient very closely, labs will be done and repeated tomorrow morning. Start the patient on Lovenox 40 mg subcutaneous every 24 hours if okay with spine surgery. 2. Hypertension and hypertensive cardiovascular disease. Continue patient on olmesartan 40/25 mg orally once every day, monitor the patient blood pressure very closely. 3. Mixed hyperlipidemia. Continue rosuvastatin or substitute atorvastatin 40 mg once every day monitor the patient with panel, keep LDL 55-70. 4. Allergic rhinitis. Appears to be stable at this time. 5. Thoracic aortic aneurysm with surveillance CAT scan is up-to-date. 6. Bicuspid aortic valve with aortic insufficiency. Stable at this time. Echocardiogram is up-to-date. Follows with cardiology on a regular basis. 7. Insomnia. Continue zolpidem 5 mg at bedtime. 8. DVT prophylaxis. Bilateral knee-high VANGIE hose. Early ambulation. Start the patient on Lovenox 40 mg subcutaneous every 24 hours. 9. GI prophylaxis. Protonix 40 mg orally once every day. 10. We will continue to follow with you. Objective - Vital Signs Vital signs: Vital Signs Temp 98.2 F 05/31/24 14:21 Pulse 80 05/31/24 14:21 Resp 17 05/31/24 14:21 BP 111/61 05/31/24 14:21 Pulse Ox 98 05/31/24 14:21 FiO2 Intake & Output 05/30/24 05/31/24 05/31/24 18:59 06:59 18:59 Intake Total 2327 240 Output Total 705 760 40 Balance 1622 -520 -40 Weight 72.1 kg Intake: IV 2327 Oral 240 Output: Drainage 160 40 Lower Back 160 40 Urine 455 600 Estimated Blood Loss 250 Other: Voiding Method Indwelling Catheter - Labs CBC & Chem 7: 05/31/24 06:01 05/31/24 06:01 Labs: Abnormal Lab Results - Last 24 Hours (Table) 05/31/24 05/31/24 Range/Units 06:01 06:01 RBC 3.27 L (4.10-5.20) X 10*6/uL Hgb 9.9 L (12.0-15.0) g/dL Hct 28.9 L (37.2-46.3) % Eosinophils # 0.02 L (0.04-0.35) X 10*3/uL BUN/Creatinine Ratio 22.17 H (12.00-20.00) Ratio Calcium 8.5 L (8.7-10.3) mg/dL Total Bilirubin <0.2 L (0.3-1.2) mg/dL Total Protein 5.3 L (6.2-8.2) g/dL Albumin 3.6 L (3.8-4.9) g/dL
--- NOTE | 2024-06-01 16:20 | P.PN ---
Subjective Progress Note Date: 06/01/24 HISTORY OF PRESENT ILLNESS: This is a 59-year-old female patient of mine with a previous medical history significant for hypertension and hypertensive heart vascular disease, hyperlipidemia, history of allergic rhinitis, major depressive disorder, history of spondylosis of the lumbar spine status post discectomy with fusion of L5 and S1 by Dr. Ramirez few years back, with a chronic low back pain, history of thoracic aortic aneurysm, history of aortic insufficiency with bicuspid aortic valve, has been under the care of cardiology on a regular basis, patient was scheduled to go for revision of L4 S1 with posterolateral fusion and interbody fusion of L for L5 L5 L S1 and removal of the hardware of L5-S1 that was done successfully by Dr. Yoo and I was asked to see the patient for pos toperative medical management. 05/31: Patient is laying down in bed she continues to have some pain in the lower back, her pain is well-controlled with the current pain management, she denies any chest pain, shortness of breath, she is laying on her side, she denies any pleurisy, she has no coughing or hemoptysis at this time, she did not use her sleeping pill last night, she is complaining of increased swelling in the lower extremities, I will start the patient on small dose of Lovenox 40 mg s ubcutaneous every 24 hours if okay with spine surgery monitor the patient very closely. Continue bilateral knee-high VANGIE hose, continue Venodyne's, increase activity level. 06/01: Patient is laying down in bed she is feeling a bit better than yesterday, she is ambulating using a walker she uses the brace to ambulate, she was started on aspirin by spine surgery, for DVT prophylaxis, continue with knee-high VANGIE hose, increase ambulation, follow-up with the patient very closely continue his other spirometer to reduce the incidence of atelectasis and healthcare associated pneumonia, continue with stool softener, likely patient will be discharged home in the next 24 hours if the pain is well-controlled. REVIEW OF SYSTEMS: Constitutional: No documented fever, no chills, no night sweats. No weight change. No weakness, fatigue or lethargy. No daytime sleepiness. EENT: No headache. No blurred vision or double vision, no loss of vision. No loss of Hearing, no ringing in the ears, no dizziness. No nasal drainage or congestion. No epistaxis. No sore throat. Lungs: No shortness of breath, no cough, no sputum production. No wheezing. Reports dyspnea with activity. Cardiovascular: No chest pain, positive for lower extremity edema. No palpitations. No paroxysmal nocturnal dyspnea. No orthopnea. No lightheadedness or dizziness. No syncopal episodes. Abdominal: Reports no abdominal pain. No nausea, vomiting. No diarrhea. No constipation. No bloody or tarry stools reports loss of appetite. Genitourinary: No dysuria, increased frequency, urgency. No urinary retention. Musculoskeletal: No myalgias. No muscle weakness, positive for gait dysfunction, no frequent falls. positive for back pain. No neck pain. Integumentary: The wound in the lumbar spine is covered with a large bulky dressing, there is a wound drain in place,, no lesions. No rash or pruritus. No unusual bruising. No change in hair or nails. Neurologic: No aphasia. No facial droop. No change in mentation. No head injury. No headache. No paralysis. No paresthesia. Psychiatric: positive for depression. No anxiety. No mood swings. Endocrine: No abnormal blood sugars. No weight change. PHYSICAL EXAMINATION: General: 59-year-old female laying down in bed in minimal distress. HEENT: Head is atraumatic, normocephalic, pupils were equal round reactive to light and recommendation, extraocular muscle movement were intact, sclera nonicteric, conjunctivae were pale, mucous membranes of the mouth are somewhat dry. Neck: Supple, no JVP, normal carotid upstroke bilaterally, no lymphadenopathy. Chest: Decreased breath sounds at the bases, few rhonchi, no expiratory wheezes, no chest wall tenderness, no intercostal retractions. Heart: First heart sound is normal, second heart sounds normal there is systolic ejection murmur 2/6 located in the left sternal border. Abdomen: Soft, nontender, nondistended, positive bowel sounds. Extremities: There is mild edema no calf tenderness DP +2 bilaterally. Neurologic examination: Patient is awake alert and oriented x3, cranial nerves II-12 appear grossly intact, muscle power were 5 out of 5 in upper extremities and 5 out of 5 in bilateral lower extremities, deep tendon reflexes normal bilaterally. ASSESSMENT AND PLAN: 1. Postoperative day #2 status post revision of L4-S1 with posterolateral fusion and interbody L4-L5 L5-S1 and removal of hardware of L5-S1, patient was instructed to use incentive spirometer to reduce the incidence of atelectasis and healthcare associated pneumonia, continue current pain management as outli nahun by spine surgery, early ambulation, , we will follow-up with the patient very closely, labs will be done and repeated tomorrow morning. Start the patient on Lovenox 40 mg subcutaneous every 24 hours if okay with spine surgery. 2. Hypertension and hypertensive cardiovascular disease. Continue patient on olmesartan 40/25 mg orally once every day, monitor the patient blood pressure very closely. 3. Mixed hyperlipidemia. Continue rosuvastatin or substitute atorvastatin 40 mg once every day monitor the patient with panel, keep LDL 55-70. 4. Allergic rhinitis. Appears to be stable at this time. 5. Thoracic aortic aneurysm with surveillance CAT scan is up-to-date. 6. Bicuspid aortic valve with aortic insufficiency. Stable at this time. Echocardiogram is up-to-date. Follows with cardiology on a regular basis. 7. Insomnia. Continue zolpidem 5 mg at bedtime. 8. DVT prophylaxis. Bilateral knee-high VANGIE hose. Early ambulation. Patient will need to be started on Lovenox if okay with spine surgery. 9. GI prophylaxis. Protonix 40 mg orally once every day. 10. constipation. Start the patient on MiraLAX 17 g in 8 ounce of water once every day, lactulose 20 g orally 3 times every day as needed 11. Will continue to follow with you. Objective - Vital Signs Vital signs: Vital Signs Temp 98.2 F 06/01/24 13:52 Pulse 82 06/01/24 13:52 Resp 17 06/01/24 13:52 BP 109/66 06/01/24 13:52 Pulse Ox 98 06/01/24 13:52 FiO2 Intake & Output 05/31/24 06/01/24 06/01/24 18:59 06:59 18:59 Output Total 180 95 Balance -180 -95 Output: Drainage 180 95 Lower Back 180 95 Other: Voiding Method Toilet # Voids 2 1 - Labs CBC & Chem 7: 05/31/24 06:01 05/31/24 06:01
[2024-06-01] MEDS: polyethylene glycoL 3350 17 GM POWD.PACK PO SCH (17:16)
[2024-06-01] MEDS: LACTULOSE 20 GM/30 ML CUP PO SCH (21:05)
[2024-06-02 07:58] VITALS: BP 118/69; PULSE 84; RESP 17; TEMP 98
--- NOTE | 2024-06-02 08:19 | P.PN ---
Subjective Progress Note Date: 06/02/24 HISTORY OF PRESENT ILLNESS: This is a 59-year-old female patient of [facility] with a previous medical history significant for hypertension and hypertensive heart vascular disease, hyperlipidemia, history of allergic rhinitis, major depressive disorder, history of spondylosis of the lumbar spine status post discectomy with fusion of L5 and S1 by Dr. Ramirez few years back, with a chronic low back pain, history of thoracic aortic aneurysm, history of aortic insufficiency with bicuspid aortic valve, has been under the care of cardiology on a regular basis, patient was scheduled to go for revision of L4 S1 with posterolateral fusion and interbody fusion of L for L5 L5 L S1 and removal of the hardware of L5-S1 that was done successfully by Dr. Yoo and I was asked to see the patient for pos toperative medical management. 05/31: Patient is laying down in bed she continues to have some pain in the lower back, her pain is well-controlled with the current pain management, she denies any chest pain, shortness of breath, she is laying on her side, she denies any pleurisy, she has no coughing or hemoptysis at this time, she did not use her sleeping pill last night, she is complaining of increased swelling in the lower extremities, I will start the patient on small dose of Lovenox 40 mg s ubcutaneous every 24 hours if okay with spine surgery monitor the patient very closely. Continue bilateral knee-high VANGIE hose, continue Venodyne's, increase activity level. 06/01: Patient is laying down in bed she is feeling a bit better than yesterday, she is ambulating using a walker she uses the brace to ambulate, she was started on aspirin by spine surgery, for DVT prophylaxis, continue with knee-high VANGIE hose, increase ambulation, follow-up with the patient very closely continue his other spirometer to reduce the incidence of atelectasis and healthcare associated pneumonia, continue with stool softener, likely patient will be discharged home in the next 24 hours if the pain is well-controlled. 06/02: Patient is sitting up in bed in no apparent distress, she just had her breakfast, she stated her pain is about 6 out of 10 intensity, she is moving around well with a walker, she did not have a pain medicine for the last 6 hours, patient is currently off ketorolac, we discussed with orthopedic and spine surgery the need for the patient to be on Lovenox 40 mg subcutaneous every 24 hours, increase activity, continue current treatment plan, will follow-up with the patient very closely likely home in the next 24 hours, patient did not have a bowel movement yet, she continues to be on lactulose, MiraLAX, stool softener she may need to get Milk of Magnesia as well as prune juice REVIEW OF SYSTEMS: Constitutional: No documented fever, no chills, no night sweats. No weight c hange. No weakness, fatigue or lethargy. No daytime sleepiness. EENT: No headache. No blurred vision or double vision, no loss of vision. No loss of Hearing, no ringing in the ears, no dizziness. No nasal drainage or congestion. No epistaxis. No sore throat. Lungs: No shortness of breath, no cough, no sputum production. No wheezing. Reports dyspnea with activity. Cardiovascular: No chest pain, positive for lower extremity edema. No palpitations. No paroxysmal nocturnal dyspnea. No orthopnea. No lightheadedness or dizziness. No syncopal episodes. Abdominal: Reports no abdominal pain. No nausea, vomiting. No diarrhea. No constipation. No bloody or tarry stools reports loss of appetite. Genitourinary: No dysuria, increased frequency, urgency. No urinary retention. Musculoskeletal: No myalgias. No muscle weakness, positive for gait dysfunction, no frequent falls. positive for back pain. No neck pain. Integumentary: The wound in the lumbar spine is covered with a large bulky dressing, there is a wound drain in place,, no lesions. No rash or pruritus. No unusual bruising. No change in hair or nails. Neurologic: No aphasia. No facial droop. No change in mentation. No head injury. No headache. No paralysis. No paresthesia. Psychiatric: positive for depression. No anxiety. No mood swings. Endocrine: No abnormal blood sugars. No weight change. PHYSICAL EXAMINATION: General: 59-year-old female laying down in bed in minimal distress. HEENT: Head is atraumatic, normocephalic, pupils were equal round reactive to light and recommendation, extraocular muscle movement were intact, sclera nonicteric, conjunctivae were pale, mucous membranes of the mouth are somewhat dry. Neck: Supple, no JVP, normal carotid upstroke bilaterally, no lymphadenopathy. Chest: Decreased breath sounds at the bases, few rhonchi, no expiratory wheezes, no chest wall tenderness, no intercostal retractions. Heart: First heart sound is normal, second heart sounds normal there is systolic ejection murmur 2/6 located in the left sternal border. Abdomen: Soft, nontender, nondistended, positive bowel sounds. Extremities: There is mild edema no calf tenderness DP +2 bilaterally. Neurologic examination: Patient is awake alert and oriented x3, cranial nerves II-12 appear grossly intact, muscle power were 5 out of 5 in upper extremities and 5 out of 5 in bilateral lower extremities, deep tendon reflexes normal bilaterally. ASSESSMENT AND PLAN: 1. Postoperative day #3 status post revision of L4-S1 with posterolateral fusion and interbody L4-L5 L5-S1 and removal of hardware of L5-S1, patient was instructed to use incentive spirometer to reduce the incidence of atelectasis and healthcare associated pneumonia, continue current pain management as outlined by spine surgery, early ambulation, , we will follow-up with the patient very closely, labs will be done and repeated tomorrow morning. Start the patient on Lovenox 40 mg subcutaneous every 24 hours if okay with spine surgery. 2. Hypertension and hypertensive cardiovascular disease. Continue patient on olmesartan 40/25 mg orally once every day, monitor the patient blood pressure very closely. 3. Mixed hyperlipidemia. Continue rosuvastatin or substitute atorvastatin 40 mg once every day monitor the patient with panel, keep LDL 55-70. 4. Allergic rhinitis. Appears to be stable at this time. 5. Thoracic aortic aneurysm with surveillance CAT scan is up-to-date. 6. Bicuspid aortic valve with aortic insufficiency. Stable at this time. Echocardiogram is up-to-date. Follows with cardiology on a regular basis. 7. Insomnia. Continue zolpidem 5 mg at bedtime. 8. DVT prophylaxis. Bilateral knee-high VANGIE hose. Early ambulation. Patient will need to be started on Lovenox if okay with spine surgery. 9. GI prophylaxis. Protonix 40 mg orally once every day. 10. constipation. Start the patient on MiraLAX 17 g in 8 ounce of water once every day, lactulose 20 g orally 3 times every day as needed 11. Will continue to follow with you. Objective - Vital Signs Vital signs: Vital Signs Temp 98 F 06/02/24 07:03 Pulse 84 06/02/24 07:03 Resp 17 06/02/24 07:03 BP 118/69 06/02/24 07:03 Pulse Ox 97 06/02/24 07:03 FiO2 Intake & Output 06/01/24 06/02/24 06/02/24 18:59 06:59 18:59 Output Total 120 50 Balance -120 -50 Output: Drainage 120 50 Lower Back 120 50 Other: Voiding Method Toilet Toilet # Voids 2 1 - Labs CBC & Chem 7: 05/31/24 06:01 05/31/24 06:01
[2024-06-02 09:25] LABS: Basophils # (A) 0.04 X 10*3/uL (0.00-0.10); Basophils % (A) 0.6 %; Eosinophils # (A) 0.14 X 10*3/uL (0.04-0.35); HCT 29.1 % (37.2-46.3); HGB 9.8 g/dL (12.0-15.0); Lymphocytes # (A) 2.45 X 10*3/uL (0.90-5.00); Lymphocytes % (A) 35.7 %; MCH 30.5 pg (27.0-32.0); MCHC 33.7 g/dL (32.0-37.0); MCV 90.7 FL (80.0-97.0); Mean Platelet Volume 9.9 FL (9.5-12.2); Monocytes # (A) 0.51 X 10*3/uL (0.20-1.00); Monocytes % (A) 7.4 %; NRBC Per 100 WBC 0 X 10*3/uL (0.00-0.01); Neutrophils # (A) 3.72 X 10*3/uL (1.80-7.70); Neutrophils % (A) 54.2 %; Platelet Count 182 X 10*3/uL (140-440); RBC 3.21 X 10*6/uL (4.10-5.20); RDW 13.1 % (11.5-14.5); WBC 6.87 X 10*3/uL (4.50-10.00)
[2024-06-02] MEDS: ENOXAPARIN 40 MG/0.4 ML SYRINGE SQ SCH (09:37)
--- NOTE | 2024-06-02 09:58 | P.DS ---
Providers Date of admission: 05/30/24 Expected date of discharge: 06/02/24 Attending physician: Gutierrez Yoo DO Consults: 05/30/24 14:56 Consult Physician Routine Consulting Provider: Sherlyn Jacobo Reason/Comments: Medical Management Do you want consulting provider notified?: Yes Primary care physician: Sherlyn Jacobo Hospital Course: Hospital Course: The patient was evaluated preoperatively and found to have the diagnosis of lumbar spondylosis with stenosis. They underwent appropriate preoperative care and were willing to undergo the intended procedure. They underwent a successful revision [id number] decompression and fusion with hardware removal, were recovered appropriately and sent to the floor. While on the floor they worked with physical therapy, occupational therapy and nursing to enhance their recovery experience. Their pain was well controlled through their stay and they were started on appropriate medications, DVT ppx modalities, activity and diet seth needs. Daily labs were monitored closely, and transfusions were only used when necessary. Medicine as well as other consulting services have made their input and have helped with our team approach and multidisciplinary care. PT milestones have been met and passed and they have made the recommendation of home for this patient and treating providers agree with this care path. The patient will be discharged home with appropriate medications, instructions and follow-up information and in stable condition. Patient Condition at Discharge: Good Plan - Discharge Summary Discharge Rx Participant: No New Discharge Prescriptions: New cefaDROXiL [Duricef] 500 mg PO Q12HR #10 cap Cyclobenzaprine [Flexeril] 10 mg PO TID PRN #40 tab PRN Reason: Muscle Spasm Aspirin 81 mg PO DAILY #14 tab polyethylene glycoL 3350 [Miralax] 17 gm PO DAILY PRN #527 gm PRN Reason: Constipation HYDROcodone/APAP 10-325MG [[place] 10-325] 1 tab PO Q4-6H PRN #40 tab PRN Reason: Pain Sennosides/Docusate Sodium [Senna Plus 8.6-50 mg Softgel] 1 each PO DAILY PRN #20 capsule PRN Reason: Constipation No Action Zolpidem [Ambien] 5 mg PO HS PRN PRN Reason: Insomnia Citalopram Hydrobromide [CeleXA] 20 mg PO DAILY Rosuvastatin Calcium [Crestor] 5 mg PO HS Docusate [Colace] 100 mg PO DAILY Multivitamins, Thera [Multivitamin (formulary)] 1 tab PO DAILY Olmesartan/Hydrochlorothiazide [Benicar Hct 40-25 mg Tablet] 1 tab PO DAILY Cyclobenzaprine [Flexeril] 10 mg PO HS Calcium Carbonate/Vitamin D3 [Calcium 250-D Tablet] 1 each PO DAILY Discharge Medication List Citalopram Hydrobromide [CeleXA] 20 mg PO DAILY 04/06/20 [History] Rosuvastatin Calcium [Crestor] 5 mg PO HS 04/06/20 [History] Zolpidem [Ambien] 5 mg PO HS PRN 04/06/20 [History] Docusate [Colace] 100 mg PO DAILY 11/06/20 [History] Multivitamins, Thera [Multivitamin (formulary)] 1 tab PO DAILY 11/06/20 [History] Olmesartan/Hydrochlorothiazide [Benicar Hct 40-25 mg Tablet] 1 tab PO DAILY 11/06/20 [History] Calcium Carbonate/Vitamin D3 [Calcium 250-D Tablet] 1 each PO DAILY 05/27/24 [History] Cyclobenzaprine [Flexeril] 10 mg PO HS 05/27/24 [History] Aspirin 81 mg PO DAILY #14 tab 06/02/24 [Rx] Cyclobenzaprine [Flexeril] 10 mg PO TID PRN #40 tab 06/02/24 [Rx] HYDROcodone/APAP 10-325MG [[place] 10-325] 1 tab PO Q4-6H PRN #40 tab 06/02/24 [Rx] Sennosides/Docusate Sodium [Senna Plus 8.6-50 mg Softgel] 1 each PO DAILY PRN #20 capsule 06/02/24 [Rx] cefaDROXiL [Duricef] 500 mg PO Q12HR #10 cap 06/02/24 [Rx] polyethylene glycoL 3350 [Miralax] 17 gm PO DAILY PRN #527 gm 06/02/24 [Rx] Follow up Appointment(s)/Referral(s): Sherlyn Jacobo MD [Primary Care Provider] - 1 Week Gutierrez Yoo DO [Doctor of Osteopathic Medicine] - 2 Weeks Activity/Diet/Wound Care/Special Instructions: Spine Discharge and Recovery Instructions Date of Surgery: 05/30/2024 Diagnosis: Lumbar spondylosis with stenosis Procedure: Revision L4-S1 decompression and fusion with hardware removal Medications: See medication list All medication refills should be obtained through your primary care doctor or your clinic spine surgeon. Please discuss prescription refills at your follow up appointment. Do not call the hospital for medication refills. Activity: Encourage ambulation with assist of walker, Up and about 6-8x daily PT/OT daily work on balance, strength and mobility Up in chair with all meals Shower daily Brace: Use brace when up and about, do not wear in bed or shower Dressing: Leave your dressing in place for a total of 3 days post operatively. Then you may remove your dressing and leave open to air. Keep the area clean and if not able to keep area clean, then cover with sterile gauze and tape. Showering: You may shower 3 days after your procedure allowing soap and water to run over incision. Do not scrub. Do not soak. Blot dry. Follow up: Please confirm a follow up appointment with your surgeon 2 weeks post operatively. Please make an appointment to follow up with your PCP in 1-2 weeks after surgery for evaluation '3 phase, 3-week plan' POST OP WEEKS 1-3 1. Lifting/carrying/pushing/pulling limited to less than 5 pounds. 2. Do not sit for longer than 15 minutes at one time. Get up and walk around. Prolonged sitting is NOT advised. If you lay down, see if you can tolerate laying down on you front (belly side) 3. Walk for periods of 15 minutes = 1 mile but no longer; do it multiple times times each day. 4. Ice your low back after activity. POST OP WEEKS 3-6 1. Lifting limited to less than 20 pounds. 2. Do not sit for longer than 30 minutes at a time. Frequently change positions. Use a sit-to stand workstation or take frequent breaks from sitting if you have returned to work. 3. Walk for 30 minutes each day. If possible, do these three or more times a day POST OP WEEKS 6+ At your 6-week appointment we will give you a physical therapy referral to focus on a core stabilization and strengthening program. You should also work on leg & buttock strengthening, hamstring & quadriceps stretching, and continue a low impact aerobic activity program such as swimming, walking, or riding a stationary bicycle. During the initial 6 weeks after your surgery, you are at the highest risk of re-injuring your spine. You should generally avoid BLT's (bending, lifting and twisting combination motions) and follow the above guidelines to reduce the chance of reinjury. You can anticipate post op appointments in our office at approximately 3 weeks and 6 weeks after your surgery. INCISION CARE: If your incision is not draining you do NOT need to cover it with a dressing. Keep your incision clean, dry and intact. In most cases, we apply skin glue, mónica or sutures to the incision at the time of surgery. This will be like a crust or have the appearance of a scab and will fall off in time on its own. The stitches or mónica need to be removed at 3 weeks post op appointment. You may begin to shower 3 days after surgery (this allows the glue to kyle well). However, please avoid scrubbing the incision site or peeling off any of the skin glue. This will ensure optimal healing of your incision. Also, during this time avoid soaking the incision area in water - this includes swimming pools, hot tubs or baths. No ointments, lotions or oils on the incision until your surgeon allows. Leave mónica, sutures or glue in place. Neurological dysfunction that comes on suddenly can also be a sign of a stroke. Below some common symptoms of a stroke are listed: B - balance difficulty such as sudden onset walking or leaning to one side - NEW E - eye problem such as sudden double vision or trouble seeing on one side - NEW F - Facial weakness or numbness on one side - NEW A - Arm or leg weakness or numbness on one side - NEW S - Slurred speech or difficulty with word finding - NEW T - Time is BRAIN! Call 911 as soon as you recognize these symptoms Diet: Consume a regular diet rich in vegetables and lean protein such as chicken or fish. You should consume in a ratio of approximately 20% fats|40% carbohydrates|40%protein. Vegetables, sweet potatoes, brown rice or quinoa are examples of good carbohydrates. Chips, white bread, cookies and sweets/sugar are examples of bad carbohydrates. Limit your bad carbs, go wild with good carbs. "Life's Simple 7" Guidelines as per [place] [employer] These will help you reclaim your life after surgery and firebrick layer helper in your recovery, keeping in mind your restrictions. (1) Get Active. Physical activity can help people lose weight, control high blood pressure and cholesterol, feel emotionally better, and sleep better. (2) Control Cholesterol. Avoid a diet high in saturated fat, trans fat, & cholesterol. Limit whole milk & cream, ice cream, butter, egg yolks, processed meats (like sausage and hot dogs), and fatty meats. Choose healthy foods that are low in saturated fat, trans fat and cholesterol which include: Fruits and vegetables, fiber rich grain products (like whole grain pasta and brown rice), lean meat such as chicken, fish, nuts, seeds, and legumes. (3) Eat Better. Eat small portions. Shop at the grocery with a list and do not stray from it. Tips for a healthy diet include: Limit sodium intake to less than 1500mg daily, avoid prepackaged, processed, and fast foods, choose a diet rich in fruits, vegetables, and whole grain, high fiber foods, and limit saturated & cholesterol in your diet. (4) Manage Blood Pressure. If you have high blood pressure, you should have a cuff at home so that you can check your blood pressure regularly. Be sure you have a good cuff. An arm one is generally better than a wrist one. Bring the cuff to a doctor's appointment to validate that the measurements that your cuff are taking are accurate. Take your blood pressure twice daily when you are sitting down and relaxing. Record the numbers in a log and bring this log with you to your doctors' appointments. (5) Lose Weight if your BMI is above 25. A healthy BMI is between 19-25. To calculate Your BMI, you may use a Standard BMI Calculator on the NIH BMI website: <www.nhlbi.nih.gov/guidelines/obesity/BMI/bmicalc.htm>. Weigh oneself daily. If you are overweight, set a goal to lose weight. A pound a week loss if needed is a good target. (6) Reduce Blood Sugar. Limit foods and liquids with "added sugars." (Added sugars include sucrose, fructose, glucose, maltose, dextrose, high fructose corn syrup, corn syrup, concentrated fruit juice and honey). (7) Stop Smoking. If you smoke, quitting smoking is one of the best things that you can do for your health. Smoking increases your risk of heart attack, stroke, and peripheral vascular disease, which is a build-up of plaque in your arteries. Please discard all the cigarettes and lighters in your house. Have a plan for what you will do when you have the urge to smoke. Direct and second- hand smoke shortens your life as well as the lives of your family, friends and others around you. For your health and the health of those around you, please consider quitting! Proper Bending Body Mechanics: Maintain a wide stance with one foot slightly in front of the other. Keep your back straight. Bend utilizing the strength in your hips and knees. Do not bend at the waist. Maintain the lifted object at your waist-level close to your body. Avoid lifting weight that causes immediately pain or pain anywhere in the body afterwards. Smoking/Nicotine If there was ever one thing that you could do to increase your overall health, decrease your risk of cardiovascular problems by about 39% the second you make the choice, it is to STOP SMOKING. Your body's most instant gratification is the second you stop smoking. We have all heard the studies, read the articles but it is true, smoking is extremely bad for your overall health, and moreover it is detrimental to your bone health. Nicotine, IN ANY FORM, kills bone cells, prevents your body from healing fractures, and significantly prolongs healing after surgery. In spine surgery specifically, it increases your risk of not healing your bones to create a fusion and increases your risk of having a revision surgery due to this up to 60%. I know it is hard. I know it feels impossible. But there are ways. Take control of your life. We are here to help you through it. And when you are ready, ask us and we can direct you to help if you desire. Use the START Plan to Quit Smoking (please visit the Helpguide.org website listed below for more information): S = Set a quit date. Choose a date within the next 2 weeks, so you have enough time to prepare without losing your motivation to quit. If you mainly smoke at work, quit on the weekend, so you have a few days to adjust to the change. T = Tell family, friends, and co-workers that you plan to quit. Let your friends and family in on your plan to quit smoking and tell them you need their support and encouragement to stop. Look for a quit damaso who wants to stop smoking as well. You can help each other get through the rough times. A = Anticipate and plan for the challenges you'll face while quitting. Most people who begin smoking again do so within the first 3 months. You can help yourself make it through by preparing ahead for common challenges, such as nicotine withdrawal and cigarette cravings. R = Remove cigarettes and other tobacco products from your home, car, and work. Throw away all your cigarettes (no emergency pack!), lighters, ashtrays, and matches. Wash your clothes and freshen up anything that smells like smoke. Shampoo your car, clean your drapes and carpet, and steam your furniture. T = Talk to your doctor about getting help to quit. Your doctor can prescribe medication to help with withdrawal and suggest other alternatives. If you can't see a doctor, you can get many products over the counter at your local pharmacy or grocery store, including the nicotine patch, nicotine lozenges, and nicotine gum. Resources for Quitting Smoking: <https://www.[place].gov/documents/[facility]/Quit_Tobacco_Resources_for_patients_313 480_7.pdf> Supplementation: Take recommended dosages of Vitamin D and Calcium to help fortify your bones and help them to heal. See your health maintenance packet for dosages and recommended levels. DVT/VTE prophylaxis: You will be given compression stockings from the hospital. Wear these daily for the first two weeks after surgery. You may take them off at night. You may be prescribed a medication to help thin your blood. Take this as directed. If you are not prescribed this medication, early and frequent ambulation has been shown to be the best prophylaxis to deep vein thrombosis and sequelae related to this event. Discharge Disposition: HOME SELF-CARE
[2024-06-02 10:35] LABS: ALT 12 U/L (8-44); AST 15 U/L (13-35); Albumin 3.4 g/dL (3.8-4.9); Albumin/Globulin Ratio 1.89 Ratio (1.60-3.17); Alkaline Phosphatase 48 U/L (41-126); Blood Urea Nitrogen 9.7 mg/dL (9.0-27.0); Calcium 8.6 mg/dL (8.7-10.3); Carbon Dioxide 28.3 mmol/L (21.6-31.8); Chloride 100 mmol/L (96-109); Globulin 1.8 g/dL (1.6-3.3); Glucose 93 mg/dL (70-110); Potassium 3.7 mmol/L (3.5-5.5); Sodium 137 mmol/L (135-145); Total Bilirubin <0.2 mg/dL (0.3-1.2); Total Protein 5.2 g/dL (6.2-8.2)
--- NOTE | 2024-06-02 12:50 | P.PN ---
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 FACET ARTHROSIS 5. LOW BACK PAIN 6. LE PARESTHESIAS, PROGRESSIVE Patient seen and examined this morning. Patient is resting comfortably in bed. She states her pain is controlled on current regimen. She does state she has some burning pain on the right lateral lumbar region when sitting up initially and it immediately resolves. Patient has been up and working with PT and sitting in chair for meals. She states she is tolerating activity well. patient states that she is looking forward for discharge later today. Patient is requesting to shower this morning prior to leaving. Discussed with RN to pull drain and change dressing after her shower. RN verbalizes understanding. Discharge instructions have been discussed. Objective - Vital Signs Vital signs: Vital Signs Temp 98 F 06/02/24 07:03 Pulse 84 06/02/24 07:03 Resp 17 06/02/24 07:03 BP 118/69 06/02/24 07:03 Pulse Ox 97 06/02/24 07:03 FiO2 Intake & Output 06/01/24 06/02/24 06/02/24 18:59 06:59 18:59 Output Total 120 50 Balance -120 -50 Output: Drainage 120 50 Lower Back 120 50 Other: Voiding Method Toilet Toilet # Voids 2 1 - Exam Physical Examination General: The patient is awake and alert, in no acute distress Skin: Skin is warm and dry with no obvious rashes or lesions. Surgical incision to the lumbar spine, dressing is clean dry and intact with Hemovac present. Neck: The neck is supple, there is no tenderness and ROM intact. Cardiovascular: There is a regular rate and rhythm. Respiratory: Respirations are non-labored.. Gastrointestinal: Soft, non-distended, non-tender abdomen. Back: There is no tenderness to palpation in the midline, paralumbar, parathoracic or buttocks region. There is no obvious deformity. Musculoskeletal: ROM limited secondary to pain and stiffness from surgical procedure. Right: shoulder abduction 5/5, elbow flexors 5/5, wrist dorsiflexors 5/5. finger abductor 5/5, meat team lead 5/5, hip flexor 4/5, knee flexor 4/5, ankle dorsiflexor 5/5, ankle plantarflexion 5/5 and extensor hallucis 5/5. Left: shoulder abduction 5/5, elbow flexors 5/5, wrist dorsiflexors 5/5. finger abductor 5/5, meat team lead 5/5, hip flexor 4/5, knee flexor 4/5, ankle dorsiflexor 5/5, ankle plantarflexion 5/5 and extensor hallucis 5/5. Neurological: CN 2-12 intact. There are no obvious motor or sensory deficits. Movement and coordination equal and intact. Sensory exam to light touch intact C5-T1 and intact from L2-S1. Reflexes 2/4 in bilateral upper and lower extremities. Negative Hoffmans, babinski, and clonus signs. Psychiatric: Cooperative, appropriate mood & affect, normal judgment. - Labs CBC & Chem 7: 06/02/24 06:10 06/02/24 06:10 Assessment and Plan Assessment: Postop day 3: Revision L4-S1 decompression and fusion with removal of hardware Plan: -Appreciate storage management consultant and team management. -Activity: Ambulate QID, OOB all meals, up and about, limit lifting bending twisting to less than 5 lbs. Use walker or cane if needed for stability. -Daily PT/OT, increase ambulation strength and balance. -Brace when up and about, not needed in bed or chair -Pain control: Adequate at this time -Meds: reviewed -GI ppx: senna, Miralax -DVT PPX: Aspirin 81mg daily -Hygiene: Maintain incision clean and dry. May change dressing as needed, please document in notes if perfromed. Meticulous cleaning after BMs away from the incision site -Drains: Discontinue prior to shower. -Encourage IS 10x/hr -Dispo:Home later today *I reviewed and discussed this case with my attending Dr. Yoo, whom has reviewed this chart and films and is in agreement with assessment and plan of care as outlined above. I have personally seen and examined the patient, performed the documentation and the assessment and plan as written. Number of minutes spent on the visit: 20m.
== END 2024-06-02 13:35 | disposition home or self-care (01) ==
LOC: OR 09:32 → 4SSUR 14:50 → OR 06-02 13:35
PROVIDERS: ATTEND Orthopaedic Surgery
DX: M43.17 Spondylolisthesis, lumbosacral region (principal); M54.16 Radiculopathy, lumbar region; M48.061 Spinal stenosis, lumbar region without neurogenic claudication; T84.216A Breakdown (mechanical) of internal fixation device of vertebrae, initial encounter; Y79.2 Prosthetic and other implants, materials and accessory orthopedic devices associated with adverse incidents; Z98.1 Arthrodesis status; Z90.49 Acquired absence of other specified parts of digestive tract; Z01.818 Encounter for other preprocedural examination; Z82.49 Family history of ischemic heart disease and other diseases of the circulatory system; Z83.3 Family history of diabetes mellitus; Z88.5 Allergy status to narcotic agent
CPT/HCPCS: 97162; 80053 ×2; 85025 ×2; 72100; 72131; 22633; 63052; 22842; 22853; 22859; 20930; 20936; C1713 ×2; C1734; J2250; J3370; J1580; J1100; J2175; J0690 ×3; J2405; J1650; J2270 ×2; J1885 ×2; J1790

== ENCOUNTER → 2024-11-27 | Outpatient (CLI) | payer BC ==
--- NOTE | 2024-11-28 07:37 | MM ---
Reason for Exam: Screening (asymptomatic). Last mammogram was performed 1 year(s) and 4 month(s) ago. Patient History: Menarche at age 8. First Full-Term at age 26. Left ovary removed at age 30. Right ovary removed at age 30. Hysterectomy at age 30. Postmenopausal. Estrogen for 13 years from age 30 until age 43. 04/30/1999, Benign Excisional Biopsy on the left side. Risk Values: Sarika 5 year model risk: 2.1%. NCI Lifetime model risk: 10.1%. Prior Study Comparison: 06/11/2021 Bilateral Screening Mammogram, [facility]. 06/24/2022 Bilateral MG 3D screening mammo w/cad, [facility]. 07/25/2023 Bilateral MG 3D screening mammo w/cad, [facility]. Tissue Density: There are scattered areas of fibroglandular density. Findings: Analyzed By CAD. Right breast: There is no suspicious group of microcalcifications or new suspicious mass. Left breast: There is no suspicious group of microcalcifications or new suspicious mass. Overall Assessment: Negative, BI-RAD 1 Management: Screening Mammogram of both breasts in [address] [facility] will attempt to contact patient to return for supplemental views and ultrasound if indicated. Patient should continue monthly self-breast exams. A clinical breast exam by your physician is recommended on an annual basis. This exam should not preclude additional follow-up of suspicious palpable abnormalities. Note on Sarika scores and lifetime risk: 1. A Sarika score greater than 3% is considered moderate risk. If this is the case, consider specialist referral to assess eligibility for a risk reducing agent. 2. If overall lifetime risk for the development of breast cancer is 20% or higher, the patient may qualify for future screening with alternating mammogram and breast MRI. [facility], , 11/28/2024 7:34 AM. Electronically signed and approved by: Leroy Regan DO
== END | disposition home or self-care (01) ==
LOC: RADMAMWWP 16:38
PROVIDERS: ATTEND Internal Medicine
DX: Z12.31 Encounter for screening mammogram for malignant neoplasm of breast (principal); R92.323 Mammographic fibroglandular density, bilateral breasts; Z78.0 Asymptomatic menopausal state
CPT/HCPCS: 77063; 77067

== ENCOUNTER → 2024-12-26 | Outpatient (CLI) | payer BC ==
--- NOTE | 2024-12-26 08:46 | CT ---
EXAMINATION TYPE: CT angio chest DATE OF EXAM: 12/26/2024 8:24 AM COMPARISON: 12/27/2023 CLINICAL INDICATION: Female, 59 years old with history of I71.20 thoracic aortic aneurysm, Follow up for thoracic aortic anerusym., TECHNIQUE: CT of the chest is performed on a spiral scan at 2 mm thick sections. Study is performed with intravenous contrast timed for evaluation for aortic aneurysm. This will limit additional porti ons of the evaluation. 10mm MIP images reconstructed by the technologist are reviewed on the compute r in the coronal and sagittal planes. Contrast used:100ml mL of Isovue 370 without and with IV Contrast, (none if empty) Oral contrast used: (none if empty) CT DLP: 566.5 mGycm, Automated exposure control for dose reduction was used. FINDINGS: Portions of the thyroid visualized are normal. No mediastinal or hilar adenopathy enlarged by CT criteria is evident. The ascending aorta diameter at the level of the main pulmonary artery is 4.3 cm. Previous measuremen t 4.1 cm. The main pulmonary artery diameter at the bifurcation is 2.4 cm. Aorta the aortic root is 4.0 cm. Previous measurement 4.1 cm. Aorta the transverse dimension of the a ortic arch is 2.6 cm. Previous measurement 2.6 cm Aorta at the diaphragm is 2.4 cm. There is a three- vessel arch. Celiac axis superior mesenteric artery and portions of the renal artery origins visualiz ed are normal. Lung windows are clear. No significant coronary artery calcifications. Limited CT sections were through the upper abdomen. Inferior right lobe hepatic cysts. The present. IMPRESSION: 1. Aortic root and descending thoracic aortic aneurysm. This appears stable from comparison. [facility], , 12/26/2024 8:44 AM
== END | disposition home or self-care (01) ==
LOC: RADCTMAIN 07:53
PROVIDERS: ATTEND Internal Medicine Interventional Cardiology
DX: I71.23 Aneurysm of the descending thoracic aorta, without rupture (principal)
CPT/HCPCS: 71275; Q9967